=== PATIENT | female | born 1965 | race Caucasian/White ===

== ENCOUNTER 2020-11-17 10:41 | Emergency (ER) | payer OTHER, SELFPAY ==
[2020-11-17 10:48] VITALS: BP 179/85; PULSE 60; RESP 18; TEMP 36.8; O2SAT 98; BMI 34.3
--- NOTE | 2020-11-17 11:02 | CT_ITS ---
EXAMINATION: CT ABDOMEN AND PELVIS WITH CONTRAST CLINICAL INFORMATION: 55-year-old female with left-sided abdominal pain. History of diverticulitis. COMPARISON: Abdominal ultrasound 07/06/[address] abdomen pelvis 04/28/2017 TECHNIQUE: Multidetector volumetric images were obtained from the superior aspect of the liver through the pubic symphysis following administration 85 mL of Omnipaque 350 intravenous contrast. Sagittal and coronal reformatted images were obtained on the technologist's workstation. This CT examination was performed using dose optimization techniques as appropriate, variously including the following: *Automated exposure control *Adjustment of mA and/or kV according to patient size (this includes techniques or standardized protocols for targeted exams where dose is matched to indication/reason for exam; i.e. extremities or head) *Use of iterative reconstruction technique DLP: 979 mGy-cm FINDINGS: Visualized lung bases are well aerated. Similar mild hepatomegaly. Subcentimeter hypodensity in the right hepatic dome is not accurately characterized but stable. The gallbladder is normal in appearance. The pancreas and adrenal glands are unremarkable. The spleen is mildly enlarged. Symmetrically enhancing kidneys. No hydronephrosis bilaterally. There are a few small left-sided renal hypodensities which although not accurately characterized appear stable from 2017. The stomach is relatively decompressed. Normal caliber loops of small and large bowel. Moderate colonic diverticulosis. Subtle pericolonic stranding adjacent to the distal sigmoid colon and in the region of the splenic flexure, nonspecific. Unremarkable anastomotic suture line. Normal appendix. Nonaneurysmal abdominal aorta. Evaluation of pelvis is limited secondary to streak artifact from right hip prosthesis. The bladder is normal in appearance. Unremarkable CT appearance of the uterus. Trace amount of free pelvic fluid is likely physiologic. No inguinal lymphadenopathy. Mild degenerative changes of the spine. Partially visualized right hip prosthesis. CT/CT abdomen pelvis w con IMPRESSION: 1. Moderate colonic diverticulosis. There are subtle areas of pericolonic stranding adjacent to the splenic flexure and sigmoid colon. I suspect this represents sequela of chronic disease, however, a very mild diverticulitis is not excluded. Clinical correlation recommended. 2. Similar mild hepatosplenomegaly.
--- NOTE | 2020-11-17 11:16 | ED.ABDPAIN ---
HPI - Abdominal Pain General Chief Complaint: Abdominal Pain Stated Complaint: abd pain Time Seen by Provider: 11/17/20 10:55 Source: patient Mode of arrival: ambulatory History of Present Illness HPI narrative: 55-year-old female with a past medical history of depression, diverticulosis, left hip replacement, insomnia, parathyroid disease presenting to the ED complaining of left lower quadrant abdominal pain x1 week with associated nausea and diarrhea. Admits symptoms feel similar to prior diverticulitis. Reports pain radiates to left flank and upper abdomen. Denies fever, chills, vomiting, dysuria/hematuria MD elicited complaint: abdominal pain Related Data Previous Rx's Medication Instructions Recorded buspirone 5 mg tablet 5 mg PO BID #60 tab 09/04/20 clotrimazole-betamethasone 1 1 appl TOPICAL BID #45 g 09/24/20 %-0.05 % topical cream ciprofloxacin HCl 500 mg PO Q12H 7 Days #14 tab 11/17/20 metronidazole [Flagyl] 500 mg PO Q8H 7 Days #21 tab 11/17/20 Allergies Allergy/AdvReac Type Severity Reaction Status Date / Time morphine [MORPHINE] Allergy Intermediate HIVES Verified 09/03/20 13:19 sulfamethoxazole Allergy Unknown HIVES Verified 09/03/20 13:19 [From BACTRIM] trimethoprim [From BACTRIM] Allergy Unknown HIVES Verified 09/03/20 13:19 SEASONAL ALLERGIES Allergy Mild RUNNY NOSE Uncoded 07/12/20 15:54 Review of Systems Review of Systems Constitutional: No Weight loss, No Fever, No Chills Cardiovascular: No Chest Pain, No SOB Respiratory: No Cough, No Sputum Gastrointestinal: + Nausea, No Vomiting, No Diarrhea, No Constipation, + Abdominal pain Genitourinary: No irregular bleeding, No Dysuria, No Urinary Frequency, No Hematuria, +Flank Pain, No Urinary Flow Changes Musculoskeletal: No joint pain, No Myalgias, No Joint Swelling Skin: No Skin Lesions, No rash Yes all other systems are reviewed and are negative Physical Exam Vital Signs: Vital Signs: Last Vital Signs Temp 98.2 F 11/17/20 10:48 Pulse 60 11/17/20 10:48 Resp 18 11/17/20 10:48 BP 179/85 H 11/17/20 10:48 Pulse Ox 98 11/17/20 10:48 Body Mass Index 34.3 Const: General: cooperative and healthy appearing Orientation/consciousness: patient oriented x3 Limitations: no limitations HENMT: Head: Yes normal to inspection Ears: hearing grossly normal bilaterally General nose exam: Normal external nose present Face and sinus: Yes normal facial exam Eyes: General: appearance normal, both eyes and all related structures EOM: EOMs intact bilaterally Neck: Neck: Yes normal visual inspection Resp: Effort & Inspection: normal respiratory effort Cardio: Rate: regular rate GI: Inspection: Yes normal to inspection Palpation (GI): Soft to palpation, Tenderness to palpation present (GI) in the LLQ and in the LUQ, no guarding and not rigid : General: Yes CVA tenderness on the left Skin: Rashes: no rashes Wounds: no wounds Neuro: General: patient oriented x3 Gait exam (Neuro): Normal gait present Extrem: General: Yes normal to inspection Course Course Course Narrative: 1353-- no leukocytosis, labs otherwise unremarkable, lactic negative, UA neg CT abdomen pelvis w con IMPRESSION: 1. Moderate colonic diverticulosis. There are subtle areas of pericolonic stranding adjacent to the splenic flexure and sigmoid colon. I suspect this represents sequela of chronic disease, however, a very mild diverticulitis is not excluded. Clinical correlation recommended. 2. Similar mild hepatosplenomegaly. > results discussed with patient including worrisome signs and symptoms and strict return precautions. Patient verbalized understanding and feels safe for discharge home to follow-up with GI MDM - Abdominal Pain MDM Narrative Medical decision making narrative: 55-year-old female with a past medical history of depression, diverticulosis, left hip replacement, insomnia, parathyroid disease presenting to the ED complaining of left lower quadrant abdominal pain x1 week with associated nausea and diarrhea. On exam VS as, NAD/nontoxic appearing, abdomen soft with LUQ/LLQ and left flank TTP. No rebound or guarding. Concern for diverticulitis vs renal stone vs UTI or pancreatitis. Low concern for appendicitis or ovarian pathology. Plan: Labs, UA, CT AP, IVF/symptomatic therapy, reassess Lab Data Result diagrams: 11/17/20 11:36 11/17/20 11:36 Labs: Lab Results 11/17/20 11/17/20 11/17/20 Range/Units 11:36 11:36 11:36 WBC 4.8 (4.8-10.8) X10*3/uL RBC 4.63 (4.20-5.50) X10*6/uL Hgb 14.7 (12.0-16.0) g/dl Hct 43.5 (37-47) % MCV 94.0 (80-98) fL MCH 31.7 (27.0-33.0) pg MCHC 33.8 (31.0-35.0) g/dl RDW 12.6 (11.0-16.0) % Plt Count TNP MPV 13.1 H (9.4-12.3) fL Immature Gran % (Auto) 0.2 (0.0-0.4) % Neut % (Auto) 64.2 (45-73) % Lymph % (Auto) 25.5 (20-40) % [place] % (Auto) 8.4 (2-11) % Eos % (Auto) 1.3 (0-4) % Baso % (Auto) 0.4 (0-2) % Lymph # (Auto) 1.2 (1.2-4.9) X10*3/uL [place] # (Auto) 0.4 (0.1-1.2) X10*3/uL Eos # (Auto) 0.1 (0.0-0.4) X10*3/uL Baso # (Auto) 0.0 (0.0-0.2) X10*3/uL Abs Immat Gran (auto) 0.01 (0.00-0.03) X10*3/uL Absolute Neuts (auto) 3.1 (2.0-8.3) X10*3/uL Absolute Nucleated RBC 0.000 (0.0-0.012) X10*3/uL Nucleated RBC % (auto) 0.0 (0.0-0.2) /100WBC Smear Tech's Comments VERIFIED Hold Blue Top SEE NOTE Sodium 140 (135-145) mmol/L Potassium 4.6 (3.3-5.1) mmol/l Chloride 108 (96-108) mmol/L Carbon Dioxide 23 (22-29) mmol/L Anion Gap 14 (12-20) BUN 12 (9-16) mg/dL Creatinine 0.71 (0.5-1.4) mg/dL Estim Creat Clear Calc 97.7 Estimated GFR > 60 Random Glucose 87 (60-115) mg/dL Lactic Acid (0.5-2.0) mmol/L Calcium 10.3 H (8.4-10.2) mg/dL Magnesium 2.0 (1.6-2.6) mg/dL Total Bilirubin 0.6 (0.0-1.0) mg/dL Direct Bilirubin 0.2 (0.0-0.5) mg/dL AST 22 (5-31) U/L ALT 32 H (0-31) U/L Alkaline Phosphatase 81 (39-117) U/L Total Protein 6.8 (6.5-8.0) g/dL Albumin 4.4 (3.5-5.0) g/dL Lipase 22 (8-78) U/L Urine Color Urine Appearance Urine pH (5.0-8.0) Ur Specific [place] (1.005-1.025) Urine Protein (NEG-TRACE) MG/DL Urine Glucose (UA) (NEG) MG/DL Urine Ketones (NEG) MG/DL Urine Blood (NEG) Urine Nitrite (NEG) Ur Leukocyte Esterase (NEG) 11/17/20 11/17/20 Range/Units 11:36 11:36 WBC (4.8-10.8) X10*3/uL RBC (4.20-5.50) X10*6/uL Hgb (12.0-16.0) g/dl Hct (37-47) % MCV (80-98) fL MCH (27.0-33.0) pg MCHC (31.0-35.0) g/dl RDW (11.0-16.0) % Plt Count MPV (9.4-12.3) fL Immature Gran % (Auto) (0.0-0.4) % Neut % (Auto) (45-73) % Lymph % (Auto) (20-40) % [place] % (Auto) (2-11) % Eos % (Auto) (0-4) % Baso % (Auto) (0-2) % Lymph # (Auto) (1.2-4.9) X10*3/uL [place] # (Auto) (0.1-1.2) X10*3/uL Eos # (Auto) (0.0-0.4) X10*3/uL Baso # (Auto) (0.0-0.2) X10*3/uL Abs Immat Gran (auto) (0.00-0.03) X10*3/uL Absolute Neuts (auto) (2.0-8.3) X10*3/uL Absolute Nucleated RBC (0.0-0.012) X10*3/uL Nucleated RBC % (auto) (0.0-0.2) /100WBC Smear Tech's Comments Hold Blue Top Sodium (135-145) mmol/L Potassium (3.3-5.1) mmol/l Chloride (96-108) mmol/L Carbon Dioxide (22-29) mmol/L Anion Gap (12-20) BUN (9-16) mg/dL Creatinine (0.5-1.4) mg/dL Estim Creat Clear Calc Estimated GFR Random Glucose (60-115) mg/dL Lactic Acid 1.2 (0.5-2.0) mmol/L Calcium (8.4-10.2) mg/dL Magnesium (1.6-2.6) mg/dL Total Bilirubin (0.0-1.0) mg/dL Direct Bilirubin (0.0-0.5) mg/dL AST (5-31) U/L ALT (0-31) U/L Alkaline Phosphatase (39-117) U/L Total Protein (6.5-8.0) g/dL Albumin (3.5-5.0) g/dL Lipase (8-78) U/L Urine Color YELLOW Urine Appearance CLEAR Urine pH 6.0 (5.0-8.0) Ur Specific [place] 1.025 (1.005-1.025) Urine Protein NEG (NEG-TRACE) MG/DL Urine Glucose (UA) NEG (NEG) MG/DL Urine Ketones NEG (NEG) MG/DL Urine Blood NEG (NEG) Urine Nitrite NEG (NEG) Ur Leukocyte Esterase NEG (NEG) Discharge Plan Discharge Clinical Impression: Diverticulitis Patient Disposition: Home, Self-Care Instructions: Diverticulitis (ED), Diverticulitis Diet (ED) Additional Instructions: Your CT scan showed small area of diverticulitis, Cipro and Flagyl antibiotics, take as prescribed. Do not drink any alcohol while taking Flagyl make you very sick. Practice clear liquid diet for two to three days, after which your diet can be increased to soft or regular Make sure your staying hydrated at home Follow-up with GI If your symptoms persist or worsen, pain becomes unbearable, you have fever, persistent nausea/vomiting return to the ED Prescriptions: New metronidazole [Flagyl] 500 mg tablet 500 mg PO Q8H 7 Days Qty: 21 RF: 0 ciprofloxacin HCl 500 mg tablet 500 mg PO Q12H 7 Days Qty: 14 RF: 0 No Action buspirone 5 mg tablet 5 mg PO BID Qty: 60 RF: 6 clotrimazole-betamethasone 1-0.05 % cream 1 appl topical BID Qty: 45 RF: 3 Referrals: Shade Elder [Physician] - 1 week [facility] Past Medical History Attestation statement: The following information was validated with the patient. 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
[2020-11-17] MEDS: 0.9 % Sodium Chloride 1,000 ML 999 ML IVCONT (11:32)
[2020-11-17] MEDS: ondansetron HCL 4 MG/2 ML VIAL IVPUSH (11:32)
[2020-11-17] MEDS: Ketorolac Tromethamine 15 MG/ML VIAL IVPUSH ×2 (11:32→12:07)
[2020-11-17 11:47] LABS: Imm Gran Abs Auto 0.01 X10*3/uL (0.00-0.03); Imm Gran Pct Auto 0.2 % (0.0-0.4); MANUAL DIFF FLAG SCAN; Mean Platelet Volume 13.1 fL (9.4-12.3); Red Cell Distribution Width 12.6 % (11.0-16.0); SCAN SMEAR FLAG 1
[2020-11-17 11:49] LABS: Basophils Percent Auto 0.4 % (0-2); Eosinophils Absolute Auto 0.1 X10*3/uL (0.0-0.4); Eosinophils Percent Auto 1.3 % (0-4); Glucose Urine UA NEG (NEG); Hematocrit 43.5 % (37-47); Hemoglobin 14.7 g/dl (12.0-16.0); Leukocyte Esterase Urine NEG (NEG); Lymphocytes Absolute Auto 1.2 X10*3/uL (1.2-4.9); Lymphocytes Percent Auto 25.5 % (20-40); Mean Corpuscular HGB Conc 33.8 g/dl (31.0-35.0); Mean Corpuscular Hemoglobin 31.7 pg (27.0-33.0); Monocytes Absolute Auto 0.4 X10*3/uL (0.1-1.2); Monocytes Percent Auto 8.4 % (2-11); Neutrophils Absolute Auto 3.1 X10*3/uL (2.0-8.3); Neutrophils Percent Auto 64.2 % (45-73); Nitrite Urine NEG (NEG); PLT CLUMP 1; Red Blood Count 4.63 X10*6/uL (4.20-5.50); Specific Gravity - Urine 1.025 (1.005-1.025); Urine Blood NEG (NEG); Urine Ketones NEG (NEG); Urine Protein NEG (NEG-TRACE)
[2020-11-17 11:50] LABS: Appearance Urine CLEAR; Color Urine YELLOW
[2020-11-17 12:08] LABS: PLT ABN DIST 1
[2020-11-17 12:10] LABS: White Blood Count 4.8 X10*3/uL (4.8-10.8)
[2020-11-17 12:11] LABS: SLIDE REVIEW VERIFIED
[2020-11-17 12:24] LABS: Alanine Aminotransferase 32 U/L (0-31); Albumin Level 4.4 g/dL (3.5-5.0); Alkaline Phosphatase 81 U/L (39-117); Anion Gap 14 (12-20); Aspartate Amino Transferase 22 U/L (5-31); Bilirubin Direct 0.2 mg/dL (0.0-0.5); Bilirubin Total 0.6 mg/dL (0.0-1.0); Blood Urea Nitrogen 12 mg/dL (9-16); Calcium 10.3 mg/dL (8.4-10.2); Carbon Dioxide 23 mmol/L (22-29); Chloride 108 mmol/L (96-108); Creatinine Clr Calc Pharmacy 97.7; Estimated Glomerular Filt Rate > 60; Glucose Random 87 mg/dL (60-115); Lipase 22 U/L (8-78); Potassium 4.6 mmol/l (3.3-5.1); Sodium 140 mmol/L (135-145); Total Protein 6.8 g/dL (6.5-8.0)
[2020-11-17 12:29] LABS: Lactic Acid 1.2 mmol/L (0.5-2.0)
[2020-11-17] MEDS: iohexoL 350 MG/ML 100 ML INFUS..BTL IV (13:09)
[2020-11-17] MEDS: HYDROmorphone HCl 0.5 MG/0.5 ML SYRINGE IVPUSH (13:56)
--- NOTE | 2020-11-17 14:03 | PC.NURSE ---
pt updated on plan of care, medicated per emar. tolerating po w/o issue. given ice chips per request.
[2020-11-17 14:50] VITALS: BP 138/72; PULSE 70; RESP 18
[2020-11-17] MEDS: metroNIDAZOLE 500 MG TABLET PO (15:08)
== END 2020-11-17 15:38 | disposition home or self-care (01) ==
PROVIDERS: Physician Assistant; Emergency Provider Internal Medicine; PCP Internal Medicine
DX: K57.32 Diverticulitis of large intestine without perforation or abscess without bleeding (principal); R10.32 Left lower quadrant pain; M25.552 Pain in left hip; R11.0 Nausea; R19.7 Diarrhea, unspecified; F33.1 Major depressive disorder, recurrent, moderate; Z79.899 Other long term (current) drug therapy
CPT/HCPCS: 36415; 74177; 80048; 80076; 81003; 83605; 83690; 83735; 85025; 96361; 96374; 96375; 96376; 99283; J1170; J1885; J2405; Q9967

== ENCOUNTER 2021-02-01 11:21 | Outpatient (REF) | payer OTHER, SELFPAY ==
[2021-02-01 13:15] LABS: COVID-19 Test Negative (Negative)
== END 2021-02-01 11:22 | disposition home or self-care (01) ==
LOC: HO.LAB 11:21
PROVIDERS: Visit Provider Internal Medicine
DX: Z20.822 Contact with and (suspected) exposure to COVID-19 (principal)
CPT/HCPCS: 36415; 87635; C9803

== ENCOUNTER → 2021-04-18 10:44 | Outpatient (BNVA) | payer OTHER, SELFPAY | PROVIDERS: PCP Internal Medicine; Visit Provider Internal Medicine | DX: M72.2 Plantar fascial fibromatosis (principal) | CPT/HCPCS: 99202 ==

== ENCOUNTER 2021-04-20 07:50 | Outpatient (REF) | payer OTHER, SELFPAY ==
--- NOTE | ~2021-04-20 | MM_ITS ---
EXAMINATION: MM SCREENING DIGITAL BREAST TOMOSYNTHESIS, BILATERAL CLINICAL INFORMATION: Screening. Asymptomatic. The lifetime risk of breast cancer based on the Tyrer-Cuzick Model is 12.7%. COMPARISON: Mammography: March 05, 2016, December 06, 2014, and November 23, 2013. TECHNIQUE: Digital breast tomosynthesis is performed in both the craniocaudal and mediolateral oblique views along with computer-aided detection (CAD). Synthesized 2D images are generated from the tomosynthesis. FINDINGS: The breasts are heterogeneously dense, which may obscure small masses (ACR BI-RADS breast composition Category c). There are no new significant masses, abnormal calcifications, or other abnormalities. Skin calcifications are present. MM/MM tomosynthesis screening BI IMPRESSION: There are no significant changes from prior study. ASSESSMENT: BI-RADS 1: Negative RECOMMENDATION: Routine annual mammography screening. This patient's information was entered into a reminder system with a target due date for their next mammogram.
== END 2021-04-20 07:51 | disposition home or self-care (01) ==
LOC: HO.MAMMO 07:50
PROVIDERS: Visit Provider Internal Medicine
DX: Z12.31 Encounter for screening mammogram for malignant neoplasm of breast (principal)
CPT/HCPCS: 77063; 77067

== ENCOUNTER 2021-04-25 10:12 | Outpatient (REF) | payer OTHER, SELFPAY ==
[2021-04-28 03:37] LABS: HPV mRNA E6/E7 Not Detected (Not Detected)
== END 2021-04-25 10:13 | disposition home or self-care (01) ==
LOC: HO.LAB 10:12
PROVIDERS: Visit Provider Internal Medicine
DX: Z01.419 Encounter for gynecological examination (general) (routine) without abnormal findings (principal); Z11.51 Encounter for screening for human papillomavirus (HPV); Z13.220 Encounter for screening for lipoid disorders; E21.5 Disorder of parathyroid gland, unspecified; E66.3 Overweight; D49.2 Neoplasm of unspecified behavior of bone, soft tissue, and skin
CPT/HCPCS: 87624; 88142

== ENCOUNTER → 2021-04-25 14:27 | Outpatient (BNVA) | payer OTHER, SELFPAY | PROVIDERS: PCP Internal Medicine; Visit Provider Internal Medicine | DX: M72.2 Plantar fascial fibromatosis (principal) | CPT/HCPCS: 99213 ==

== ENCOUNTER 2021-04-30 08:15 | Day surgery (SDC) | payer OTHER, SELFPAY ==
--- NOTE | 2021-04-26 08:17 | P.CONAN_ITS ---
Documented by User: Haydee Marisela 04/26/21 08:18 HPI - Anesthesia Eval Consult details Narrative: 56yo F for Colonoscopy h/o sigmoid colectomy PMFSH Active Problems Active Problems: All Active Problems (Updated 04/25/21 @ 09:50 by Consuelo Solomon MD) Overweight (Acute) Skin growth (Acute) Annual physical exam (Acute) Foot pain, right (Acute) Labial cyst (Acute) Past Medical History Medical History Annual physical exam Anxiety Depression Diverticulosis Foot pain, right Insomnia Overweight Parathyroid disease Skin growth Family History Family History Father Bladder cancer Mother Colon cancer Surgical History Surgical History H/O colonoscopy History of bowel resection History of carpal tunnel surgery History of left hip replacement Social History Social History Housing: House Patient Tobacco Use Status: Current everyday Tobacco user Tobacco use type: Cigarette Cigarettes Per Day: 10 Years Smoked: 35 Smoked in Last 30 Days: Yes e-Cigarette/Vaping Use: Never Used Second Hand Smoke Exposure: No Use of substances other than those prescribed or required for medical reasons: No Are you DNR?: No Advance Directives: No Advance Directives Information Provided: Yes service: No Current occupational status: employed 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 Current occupational exposures/hazards: No Meds Allergies Allergy/AdvReac Type Severity Reaction Status Date / Time morphine [MORPHINE] Allergy Intermediate HIVES Verified 04/30/21 08:49 sulfamethoxazole Allergy Unknown HIVES Verified 04/30/21 08:49 [From BACTRIM] trimethoprim [From BACTRIM] Allergy Unknown HIVES Verified 04/30/21 08:49 SEASONAL ALLERGIES Allergy Mild RUNNY NOSE Uncoded 04/06/21 15:00 Home Medications Medication Instructions Recorded Confirmed Last Taken Type albuterol sulfate 1 - 2 puff PO Q4-6H PRN 03/19/21 04/25/21 Unknown History trazodone 1 tab PO BEDTIME 03/19/21 04/25/21 Unknown History Exam Exam Date and Time: April 26, 2021 0817 Assessment and Plan Assessment Anesthesia Assessment: Chart Reviewed Documented by User: Susan Coronado 04/30/21 09:49 PMFSH Past Medical History Medical History Annual physical exam Anxiety Depression Diverticulosis Foot pain, right Insomnia Overweight Parathyroid disease Skin growth Family History Family History Father Bladder cancer Mother Colon cancer Surgical History Surgical History H/O colonoscopy History of bowel resection History of carpal tunnel surgery History of left hip replacement Social History Social History Housing: House Patient Tobacco Use Status: Current everyday Tobacco user Tobacco use type: Cigarette Cigarettes Per Day: 10 Years Smoked: 35 Smoked in Last 30 Days: Yes e-Cigarette/Vaping Use: Never Used Second Hand Smoke Exposure: No Use of substances other than those prescribed or required for medical reasons: No Are you DNR?: No Advance Directives: No Advance Directives Information Provided: Yes service: No Current occupational status: employed 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 Current occupational exposures/hazards: No Meds Allergies Allergy/AdvReac Type Severity Reaction Status Date / Time morphine [MORPHINE] Allergy Intermediate HIVES Verified 04/30/21 08:49 sulfamethoxazole Allergy Unknown HIVES Verified 04/30/21 08:49 [From BACTRIM] trimethoprim [From BACTRIM] Allergy Unknown HIVES Verified 04/30/21 08:49 SEASONAL ALLERGIES Allergy Mild RUNNY NOSE Uncoded 04/06/21 15:00 Home Medications Medication Instructions Recorded Confirmed Last Taken Type albuterol sulfate 1 - 2 puff PO Q4-6H PRN 03/19/21 04/25/21 Unknown History trazodone 1 tab PO BEDTIME 03/19/21 04/25/21 Unknown History Exam Airway Mallampati Class: II TM Dist: >3cm Neck ROM: Full Loose/Missing/Broken Teeth: No Heart: RRR Lungs: CTA Assessment and Plan Assessment Anesthesia Assessment: Anesthesia Plan Discussed and Chart Reviewed Final Anesthetic Review NPO: Yes ASA Class: II Final Preanesthetic Review: Meds/Allgs Chart Reviewed, Consent Obtained/Reviewed and Anes Risks/Benef Reviewed Patient Risk: Low Procedure Risk: Low Anesthetic Plan Anesthetic Plan: MAC: Disposition: Standard PACU
[2021-04-30 08:52] VITALS: BP 138/50; PULSE 68; RESP 16; TEMP 36.4; O2SAT 97; BMI 33.3
[2021-04-30] MEDS: Lactated Ringers 1,000 ML 100 ML IVCONT (09:05)
--- NOTE | 2021-04-30 09:33 | MHC.SHP ---
Pre-Procedural Eval Section A Date of Service: 04/30/21 Section B Chief Complaint: diverticulitis Details of Present Illness: see H&P no changes Relevant Family History (Specify if Yes): No Relevant Social History: None Present Medications: see Short Stay Collaborative assessment Medical History: No relevant PMH History of Previous Operations: Relevant previous surgery/procedure and date(s) (see h & p no changes) Allergies: Allergies Allergy/AdvReac Type Severity Reaction Status Date / Time morphine [MORPHINE] Allergy Intermediate HIVES Verified 04/30/21 08:49 sulfamethoxazole Allergy Unknown HIVES Verified 04/30/21 08:49 [From BACTRIM] trimethoprim [From BACTRIM] Allergy Unknown HIVES Verified 04/30/21 08:49 SEASONAL ALLERGIES Allergy Mild RUNNY NOSE Uncoded 04/06/21 15:00 Review of Systems Sugical H&P ROS: Negative: Constitution, Cardiovascular, Respiratory, Neurological, Psychiatric, Hem-Onc, Allergic/Immunologic, Gastrointestinal, Genitourinary, Musculoskeletal, Integumentary, Endocrine and Eyes/Ears/Nose/Throat Exam Surgical H&P Exam: Normal: HEENT, Normal: Heart, Normal: Lungs, Normal: Extremities, Normal: Abdomen, Normal: Skin and Normal: Neurological Plan Diagnosis/Plan: Unchanged I have reviewed the history and physical and performed a pertinent physical examination on my patient. No changes have occurred unless specified.
[2021-04-30 09:58] VITALS: BP 129/60; PULSE 73; RESP 18; TEMP 36.3; O2SAT 99
--- NOTE | 2021-04-30 09:58 | P.BOP_ITS ---
Brief Operative Note Date of Service: 04/30/21 Pre-op diagnosis: diverticulitis Post-op diagnosis: same Procedure: colonoscopy Surgeon: Shade Elder Anesthesia: MAC Was an Advanced Clinical Specialist used for this Procedure?: No Estimated blood loss (mL): 2 Pathology: other (sigmoid biopsies) Condition: stable Disposition: PACU
[2021-04-30 10:13] VITALS: BP 121/50; PULSE 68; RESP 17; TEMP 36.3; O2SAT 99
--- NOTE | 2021-04-30 12:35 | OP_ITS ---
SURGEON: Shade Elder MD INDICATIONS: Diverticulitis and abnormal CT scan of the colon. PREOPERATIVE DIAGNOSIS: POSTOPERATIVE DIAGNOSIS: PROCEDURE PERFORMED: Colonoscopy to the terminal ileum with biopsy. ESTIMATED BLOOD LOSS: COMPLICATIONS: ANESTHESIA: Monitored anesthesia care. ASSISTANTS: SPECIMENS: DESCRIPTION OF PROCEDURE: History and physical performed. The risks and benefits of the procedure were explained to the patient. Informed consent was obtained. The patient was placed in the left lateral decubitus position. A digital rectal exam was performed and was found to be normal. The Olympus pediatric video colonoscope was introduced into the rectum and advanced to the cecum without difficulty. The cecum was identified by transillumination, palpation, and identification of ileocecal valve. Examination was performed. The scope was removed. She tolerated the procedure well and was taken to recovery area in stable condition. FINDINGS: The terminal ileum was normal. The visualized colonic mucosa was normal. There was stool coating the mucosa limiting the examination for detection of small polyps. No polyps were identified. Random sigmoid biopsies were obtained to rule out colitis. There was scattered diverticulosis throughout the colon. At about 20 cm, there appeared to be a patent anastomosis from her prior surgery. Retroflexed examination showed internal hemorrhoids. IMPRESSION: Diverticulosis. RECOMMENDATION: Follow up the biopsy results. Screening colonoscopy is recommended every 10 years for average risk individuals. MD ALMA Brannon/RAY / [id number] MTDD
== END 2021-04-30 11:11 | disposition home or self-care (01) ==
PROVIDERS: PCP Internal Medicine; Visit Provider Internal Medicine Gastroenterology
PROC: 0DJD8ZZ Inspection of Lower Intestinal Tract, Via Natural or Artificial Opening Endoscopic (ICD-10-PCS; CPT 45378; principal; 2021-04-30 09:30)
DX: R93.5 Abnormal findings on diagnostic imaging of other abdominal regions, including retroperitoneum (principal); K57.30 Diverticulosis of large intestine without perforation or abscess without bleeding; K64.8 Other hemorrhoids; Z80.0 Family history of malignant neoplasm of digestive organs; Z90.49 Acquired absence of other specified parts of digestive tract; E66.3 Overweight; J30.2 Other seasonal allergic rhinitis; F32.9 Major depressive disorder, single episode, unspecified; Z96.641 Presence of right artificial hip joint; Z88.2 Allergy status to sulfonamides; Z88.8 Allergy status to other drugs, medicaments and biological substances; Z79.899 Other long term (current) drug therapy; F17.210 Nicotine dependence, cigarettes, uncomplicated
CPT/HCPCS: 45380; 88305

== ENCOUNTER → 2021-05-03 14:30 | Outpatient (BNVA) | payer OTHER, SELFPAY | PROVIDERS: PCP Internal Medicine; Visit Provider Internal Medicine | DX: M72.2 Plantar fascial fibromatosis (principal) | CPT/HCPCS: 99213 ==

== ENCOUNTER → 2021-05-10 10:54 | Outpatient (BNVA) | payer OTHER, SELFPAY | PROVIDERS: PCP Internal Medicine; Visit Provider Internal Medicine | DX: M72.2 Plantar fascial fibromatosis (principal) | CPT/HCPCS: 99213 ==

== ENCOUNTER 2022-02-17 07:58 | Outpatient (REF) | payer OTHER, SELFPAY ==
[2022-02-17 11:59] LABS: Hematocrit 44.8 % (37.0-47.0); Hemoglobin 14.7 g/dl (12.0-16.0); Mean Corpuscular HGB Conc 32.8 g/dl (31.0-35.0); Mean Corpuscular Hemoglobin 31.4 pg (27.0-33.0); Mean Corpuscular Volume 95.7 fL (80.0-98.0); Mean Platelet Volume 11.6 fL (9.4-12.3); Red Blood Count 4.68 X10*6/uL (4.20-5.50); Red Cell Distribution Width 12.4 % (11.0-16.0); White Blood Count 5.3 X10*3/uL (4.8-10.8)
[2022-02-17 12:10] LABS: Alanine Aminotransferase 47 U/L (0-31); Albumin Level 4.6 g/dL (3.5-5.0); Alkaline Phosphatase 78 U/L (39-117); Anion Gap 11 (12-20); Aspartate Amino Transferase 36 U/L (5-31); Bilirubin Total 0.8 mg/dL (0.0-1.0); Blood Urea Nitrogen 13 mg/dL (9-16); Carbon Dioxide 26 mmol/L (22-29); Chloride 106 mmol/L (96-108); Cholesterol 175 mg/dL; Estimated Glomerular Filt Rate > 60; Glucose Fasting 101 mg/dL (60-99); HDL Cholesterol 34 mg/dL; LDL Cholesterol Calculated 113 mg/dl; Potassium 4.7 mmol/L (3.3-5.1); Sodium 138 mmol/L (135-145); Total Protein 7.3 g/dL (6.5-8.0); Triglycerides 140 mg/dL
[2022-02-17 12:30] LABS: Appearance Urine CLEAR; Color Urine YELLOW; Glucose Urine UA NEG (NEG); Leukocyte Esterase Urine NEG (NEG); Nitrite Urine NEG (NEG); Urine Blood NEG (NEG); Urine Ketones NEG (NEG); Urine Protein NEG (NEG-TRACE)
[2022-02-17 12:31] LABS: TSH reflex Free T4 0.96 uIU/mL (0.32-4.0)
[2022-02-17 14:16] LABS: Bacteria Urine 2+ /LPF; Squamous Epithelial Cell Urine 2+ /LPF
[2022-02-18 11:27] LABS: Calcium (PTHI) 11.2 mg/dL (8.6-10.4); PTHI 81 pg/mL (16-77)
[2022-02-21 13:17] LABS: Calcium, Ionized 5.8 mg/dL (4.8-5.6)
== END 2022-02-17 07:59 | disposition home or self-care (01) ==
LOC: HO.HMGCLDS 07:58
PROVIDERS: PCP Internal Medicine; Visit Provider Internal Medicine
DX: Z00.00 Encounter for general adult medical examination without abnormal findings (principal); E21.5 Disorder of parathyroid gland, unspecified
CPT/HCPCS: 36415; 80053; 80061; 81001; 82330; 83970; 84443; 85027

== ENCOUNTER 2022-06-27 19:00 | Outpatient (REF) | payer OTHER, SELFPAY ==
[2022-06-28 12:01] LABS: Leukocytes Stool Qualitative NEGATIVE (NEGATIVE)
[2022-06-28 12:04] LABS: CDiff Gene PCR NEGATIVE (Negative)
[2022-06-28 13:55] LABS: Adenovirus F 40/41 Not Detected (Not Detect.); Astrovirus Not Detected (Not Detect.); Campylobacter Not Detected (Not Detect.); Cryptosporidium Not Detected (Not Detect.); Cyclospora cayetanensis Not Detected (Not Detect.); E. coli EAEC Not Detected (Not Detect.); E. coli EPEC Not Detected (Not Detect.); E. coli ETEC Not Detected (Not Detect.); E. coli STEC Not Detected (Not Detect.); Entamoeba histolytica Not Detected (Not Detect.); Giardia lamblia Not Detected (Not Detect.); Norovirus GI/GII Not Detected (Not Detect.); Plesiomonas shigelloides Not Detected (Not Detect.); Rotavirus A Not Detected (Not Detect.); Salmonella Not Detected (Not Detect.); Sapovirus Not Detected (Not Detect.); Shigella sp./EIEC Not Detected (Not Detect.); Vibrio Not Detected (Not Detect.); Vibrio Cholerae Not Detected (Not Detect.); Yersinia enterocolitica Not Detected (Not Detect.)
== END 2022-06-27 19:01 | disposition home or self-care (01) ==
LOC: HO.LNP 19:00
PROVIDERS: Visit Provider Internal Medicine Gastroenterology
DX: R19.7 Diarrhea, unspecified (principal)
CPT/HCPCS: 87177; 87209; 87493; 87507; 89055

== ENCOUNTER 2022-06-28 10:49 | Outpatient (REF) | payer OTHER, SELFPAY | END 2022-06-28 10:50 | disposition home or self-care (01) | LOC: HO.LNP 10:49 | PROVIDERS: Visit Provider Internal Medicine Gastroenterology | DX: Z13.89 Encounter for screening for other disorder (principal) | CPT/HCPCS: 87177; 87209; 87493; 87507; 89055 ==

== ENCOUNTER 2022-07-28 20:36 | Emergency (ER) | payer OTHER, SELFPAY ==
[2022-07-28 20:39] VITALS: BP 138/59; PULSE 62; RESP 18; TEMP 35.9; O2SAT 98; BMI 33.3
--- OUTSIDE RECORDS SUMMARY | 2022-07-28 20:48 | XMS_ITS | Continuity of Care Document ---
:1965 Author Organization [facility] Address [address] [place] [address]- Care Team Providers Name Role Phone Consuelo Solomon MD Primary Care Physician [place] [facility] [place] 12/07/19 - 12/17/19 [facility] [address] [facility] [place] [address]- [facility] Attending Physician: Keisha Golden Admitting Physician: Keisha Golden Referring Physician: AdmtrKeisha Allergies, Adverse Reactions, Alerts Substance Reaction Severity Status morphine Active sulfa drugs Active Zoloft Active Effexor Active CeleXA Active Medications acetaminophen 325 mg oral tablet 650 mg, By Mouth, Every 6 hours, Refills 0, Maintenance, 06/07/19 7:08:31 EDT Start Date: 06/07/19 Status: Orderedaspirin 162.5 mg oral capsule, extended release = 325 mg, By Mouth, 2 times a day, 0 Refills, Maintenance, 06/07/19 7:08:46 EDT, ER Capsule Start Date: 06/07/19 Status: OrderedbuPROPion 150 mg/12 hours (SR) oral tablet, extended release See Instructions, 1 tablet By Mouth 2 times a day, 0 Refills, Maintenance, 06/06/19 8:18:16 EDT, ER Tablet Start Date: 06/06/19 Status: Ordereddocusate sodium 100 mg oral capsule 100 mg, 1, capsule, By Mouth, 2 times a day, Refills 0, Maintenance, 06/07/19 7:08:51 EDT Start Date: 06/07/19 Status: Orderedfluconazole 150 mg oral tablet 1 tablet = 150 mg, By Mouth, Once, # 1 tablet, 0 Refills, Soft Stop, 11/23/19 11:30:00 EST, Tablet, [facility] #[id number], 163, cm, 11/23/19 11:00:00 EST, Height, 85, kg, 06/06/19 8:02:00 EDT, Dry Weight Start Date: 11/23/19 Status: OrderedFLUoxetine 60 mg oral tablet 1 tablet = 60 mg, By Mouth, Daily in AM, # 30 tablet, 0 Refills, Maintenance, 06/06/19 8:19:19 EDT, Tablet Start Date: 06/06/19 Status: OrderedMaalox Plus Liquid 30 mL, By Mouth, Every 4 hours, PRN Other, Heartburn, 0 Refills, Maintenance, 06/07/19 7:08:44 EDT, Suspension Start Date: 06/07/19 Status: OrderedMiraLax Powder 1 pack/packet = 17 Gm, By Mouth, Daily, 0 Refills, Maintenance, 06/07/19 7:09:10 EDT, Powder Start Date: 06/07/19 Status: OrderedMOM Liquid 30 mL, By Mouth, Daily, PRN Constipation, 0 Refills, Maintenance, 06/07/19 7:08:53 EDT, Suspension Start Date: 06/07/19 Status: OrderedoxyCODONE 10 mg oral tablet = 10 mg, By Mouth, Every 4 hours, PRN Pain , Moderate, 0 Refills, Maintenance, 06/07/19 7:09:01 EDT,Tablet, Partial fill upon patient request Start Date: 06/07/19 Status: OrderedoxyCODONE 5 mg oral tablet 5 mg, By Mouth, Every 4 hours, PRN, Refills 0, Tot. Refills 0, Maintenance, Pain , Mild, 06/07/19 7:08:54 EDT, Partial fill upon patient request Start Date: 06/07/19 Status: Orderedpantoprazole 40 mg oral delayed release tablet = 40 mg, By Mouth, Daily, 0 Refills, Maintenance, 06/07/19 7:09:08 EDT, EC Tablet Start Date: 06/07/19 Status: Orderedsenna 187 mg oral tablet 1 tablet = 8.6 mg, By Mouth, Daily at bedtime, 0 Refills, Maintenance, 06/07/19 7:09:12 EDT, Tablet Start Date: 8/13/19 Status: Ordered Social History Social History Type Response Smoking Status Never (less than 100 in life time) entered on: 11/17/19 Sex
--- OUTSIDE RECORDS SUMMARY | 2022-07-28 20:48 | XMS_ITS | Continuity of Care Document ---
:1965 Author Organization [facility] Address [address] [place] [address]- Care Team Providers Name Role Phone Consuelo Solomon MD Primary Care Physician Encounter [facility] NBR [id number] Date(s): 11/23/19 - 01/06/20 [facility] [address] [facility] [place] [address] Attending Physician: Catherine RESENDEZ, Mecca Wu Admitting Physician: Catherine RESENDEZ, Mecca Wu Referring Physician: Consuelo Solomon MD Allergies, Adverse Reactions, Alerts Substance Reaction Severity [...] Refills, Soft Stop, 11/23/19 11:30:00 EST, Tablet, [facility]pharmacy #[id number], 163, cm, 11/23/19 11:00:00 EST, Height, [...] Maintenance, 06/07/19 7:09:12 EDT, Tablet Start Date: 06/07/19 Status: Ordered Social History Social History Type Response Smoking Status Never (less than 100 in life time) entered on: 11/17/19 Sex
--- OUTSIDE RECORDS SUMMARY | 2022-07-28 20:48 | XMS_ITS ---
:1965 Author Organization [facility] Address [address] [place] [address] Care Team Providers Name Role Phone Shade Elder Jr Unavailable Unavailable PROBLEMS Type Condition ICD9-CM Code [id number] Onset Condition SNOMED Code Code Dates Status Problem Diverticulitis K57.92 Active 004 Problem Diverticulitis of K57.92 Active intestine, part unspecified, without perforation or abscess without bleeding Problem Fatty liver K76.0 Active 01721809 7 Problem Diverticulitis of K57.32 Active 11 0878662 large intestine without perforation or abscess without bleeding Problem Abnormal CT scan, R93.3 Active 12 7901134 colon ALLERGIES Substance Reaction Event Type Date Status Morphine Sulfate Unknown Drug Allergy Jan, Active Sulfa Unknown Drug Allergy Jan, Active ENCOUNTERS Encounter Location Date Diagnosis [address] Jun, Diarrhea , unspecified type [facility] [address] [place] R19.7 [address] [place] [address] Mar, [facility] [address] [place] [address] [place] [address] Oct, [facility] [address] [place] [address] Apr, [facility] [address] [place] [address] [place] [address] Apr, [facility] [address] [place] [address] [facility] Outpatient [address] [place] [address] Apr, Abnormal CT sca n, colon [place] [id number] R93.3 and Diverticulitis of intestine, part unspecified, wit hout perforation or a bscess without bleeding K57.92 [facility] [address] Jan, Divertic ulitis K57.92 and [facility] [address] [place] Abnormal C T scan, colon [address] R93.3 [facility] [address] Jan, [facility] [address] [place] [address] [facility] [address] Dec, [facility] [address] [place] [address] [facility] [address] Dec, [facility] [address] [place] [address] [facility] [address] Oct, Abdomina l pain, unspecified [facility] [address] [place] abdominal location R10.9 [address] [facility] [address] Oct, [facility] [address] [place] [address] [facility] Outpatient [address] Jul, [place] [id number] [facility] [address] Jun, Divertic ulitis of large [facility] [address] [place] intestine without [address] perforation or a bscess without bleeding K57.32 and Fatty liver K76. 0 [facility] Outpatient [address] Jun, [place] [id number] [facility] [address] Jun, [facility] [address] [place] [address] [facility] [address] Jun, Rectal b leeding 569.3 and [facility] [address] [place] Diarrhea 7 87.91 [address] [facility] [address] Mar, [facility] [address] [place] [address] [facility]patient [address] Aug, [place]ias [id number] [facility] ER [address] Apr, [place] [id number] [facility] Outpatient [address] Jul, [place] [id number] [facility] ER [address] Jan, [place] [id number] IMMUNIZATIONS Vaccine Route Administration Date Status Influenza Unknown Jul 26, 2020 Administered SOCIAL HISTORY Qualifiers Date Current Smoker REASON FOR REFERRAL FUNCTIONAL STATUS PLAN OF CARE Activity Details Follow Up prn Reason: Pending Test Ova and Parasite Pending Test STOOL WBC Pending Test OVA & PARASITES (O&P) Pending Test CDiff Gene PCR Pending Test LIVER PROFILE Pending Test LIPASE Pending Test CBC w/o DIFF Pending Test STOOL WBC Pending Test OVA & PARASITES (O&P) Pending Test CULTURE, STOOL Pending Test C DIFFICILE RFLX PCR Future/Pending Procedure COLONOSCOPY [id number] Future/Pending Procedure COLONOSCOPY [id number] Future/Pending Procedure COLONOSCOPY [id number] VITAL SIGNS Weight 204 lbs 2021-02-21 Weight 214 lbs 2017-07-15 Weight 189 lbs 2013-07-01 Height 65 in 2021-02-21 Height 65 in 2017-07-15 Height 65 in 2013-07-01 BMI 33.94 kg/m2 2021-02-21 BMI 35.61 kg/m2 2017-07-15 BMI 31.45 kg/m2 2013-07-01 Heart Rate 76 /min 2017-07-15 Heart Rate 76 /min 2013-07-01 Temperature 97.3 degrees Fahrenheit 2021-02-21 Blood pressure systolic 000 mm Hg 2021-02-21 Blood pressure diastolic 00 mm Hg 2021-02-21 MEDICATIONS Medication Instructions Dosage Frequency Start End Duration Statu s Date Date Ondansetron HCl Orally up to 3 1 tablet Mar, Active 4 MG times daily as 2021 needed for nausea Multivitamin Orally Once a 1 tablet 24h 30 day(s) Ac tive Adult - day FLUoxetine HCl Orally Once a 2 tablet in 24h Active 20 MG day the morning MiraLax (colon orally begin at mixed with Jan, 1 day Active prep) 8.3 ounce 5:00 p.m. the Gatorade or 2020 ((238) grams day before the Crystal procedure Light Dicyclomine HCl Orally 2-4 times 1 tablet Oct, 30 day s Active 20 MG a day 2020 PROCEDURES Procedure Date Ordered Result Body Site PT TOBACCO SCREEN RCVD TLK February 21, 2021 BP NOT ASSESS PATIENT NOT ELIGIBLE February 21, 2021 COLORECTAL CA SCREEN DOC REV February 21, 2021 COLONOSCOPY AND BIOPSY April 30, 2021 RESULTS Name Result Date Reference Range Leukocytes Stool Qualitative 2022-06-27 Leukocytes Stool Qualitative NEGATIVE NEG ATIVE CDiff Gene PCR 2022-06-27 CDiff Gene PCR NEGATIVE Negative GI PANEL 2022-06-27 Campylobacter Not Detected Not Detect. Plesiomonas shigelloides Not Detected Not Det ect. Salmonella Not Detected Not Detect. Vibrio Not Detected Not Detect. Vibrio Cholerae Not Detected Not Detect. Yersinia enterocolitica Not Detected Not Dete ct. E. coli EAEC Not Detected Not Detect. E. coli EPEC Not Detected Not Detect. E. coli ETEC Not Detected Not Detect. E. coli STEC Not Detected Not Detect. E. coli O157 Not applicable Not Detect. Shigella sp./EIEC Not Detected Not Detect. Cryptosporidium Not Detected Not Detect. Cyclospora cayetanensis Not Detected Not Dete ct. Entamoeba histolytica Not Detected Not Detect . Giardia lamblia Not Detected Not Detect. Adenovirus F 40/41 Not Detected Not Detect. Astrovirus Not Detected Not Detect. Norovirus GI/GII Not Detected Not Detect. Rotavirus A Not Detected Not Detect. Sapovirus Not Detected Not Detect. Pathology 2021-04-30 GI BIOPSY 2013-07-22 G.I. BIOPSY CBC with MANUAL DIFFERENTIAL 2012-01-16 RBC 3.66 4.20-5.50 HEMOGLOBIN 11.5 12.0-16.0 HEMATOCRIT 34.1 37-47 MCV 93.2 80-98 MCH 31.5 27.0-33.0 MCHC 33.8 31.0-35.0 RDW 11.8 11.0-16.0 SEGS 72 45-73 LYMPHOCYTES 18 20-40 MONOCYTES 8 2-11 EOSINOPHILS 2 0-4 PLATELET ESTIMATE Test not performed NORMAL PLATELET MORPHOLOGY PLT CLUMPS NOTED NORMAL RBC MORPHOLOGY 1+ ANISO NORMAL WBC 5.5 4.8-10.8 ABSOLUTE NEUTROPHIL COUNT 4.0 2.2-7. 9 PLATELET COUNT Test not performed 160-400 US ABD 2012-01-16 REASON FOR VISIT stomach cramps ,nausea, diarrhea, refill dicyclomine , pathology/ waiting on pt call back, Patient having sharp pains, diverticulitis and abnormall findings of the colon on CT scan, diverticulitis and abnormall findings of the colon on CT scan, patient presents today for LLQ apin, Covid Questions, left lower quadrant pain, ov appt, COVID Screen, ABD PAIN - Stools, pain in mid lower left /yellow stool, DIVERTICULITIS, Patient presents today for diverticulitis, RECTAL BLEEDING, sign off on colyte prep, chronic diarrhea, abd pain,pre-colon, Appointment Insurance Providers [facility] Health Member Patient Patient Patient Patient Patient Subscriber Subscriber Subscriber Group Insurance Plan Plan Plan Plan ID Relationship Address Phone Name Date of ID Name Date of No Type Insurance Insurance Insurance Coverage to Subscriber Address Phone Name Dates [facility] [phone] [facility] self LOLA [id number] PROFESSION [id number] [place] CLAIMS [address] [facility] [address] [facility] [phone] [employer] self LOLA [id number] [place] [id number] Health OSKAR Plan [facility] Plan [id number] MEDICAID [phone] MEDICAID self LOLA 1 [id number] OF [place] [id number] OF [address] [facility] [address]
--- OUTSIDE RECORDS SUMMARY | 2022-07-28 20:48 | XMS_ITS | Continuity of Care Document ---
:1965 Author Organization [facility] Address [address] [place] [address] Drive [address] [place] [address]- Care Team Providers Name Role Phone Consuelo Solomon MD Primary Care Physician [place] [facility] [place]22 - 07/05/[address] [place] [address] Allergies, Adverse Reactions, Alerts Substance Reaction Severity [...] Refills, Soft Stop, 11/23/19 11:30:00 EST, Tablet, [id number], 163, cm, 11/23/19 11:00:00 EST, Height, [...] in life time) entered on: 11/17/19 Sex Care Team PersonnelName: Consuelo Solomon MD Address: [address] [facility] [place] [address]
[2022-07-28 21:24] LABS: MANUAL DIFF FLAG NO
[2022-07-28 21:26] LABS: Appearance Urine Clear; COVID-19 Test Negative (Negative); Color Urine Yellow; Glucose Urine UA Negative (Negative); Leukocyte Esterase Urine Negative (Negative); Nitrite Urine Negative (Negative); PH 5.5 (5.0-9.0); Urine Blood Negative (Negative); Urine Ketones Trace mg/dL (Negative); Urine Protein Negative (Neg-Trace)
[2022-07-28 21:26] LABS: Basophils Percent Auto 0.4 % (0-2); Eosinophils Absolute Auto 0.1 X10*3/uL (0.0-0.4); Eosinophils Percent Auto 1.1 % (0-4); Hematocrit 45.6 % (37.0-47.0); Hemoglobin 15.6 g/dl (12.0-16.0); Imm Gran Abs Auto 0.02 X10*3/uL (0.00-0.03); Imm Gran Pct Auto 0.2 % (0.0-0.4); Lymphocytes Absolute Auto 1.7 X10*3/uL (1.2-4.9); Lymphocytes Percent Auto 16.6 % (20-40); Mean Corpuscular HGB Conc 34.2 g/dl (31.0-35.0); Mean Corpuscular Hemoglobin 31.8 pg (27.0-33.0); Mean Corpuscular Volume 92.9 fL (80.0-98.0); Mean Platelet Volume 11.8 fL (9.4-12.3); Monocytes Absolute Auto 0.9 X10*3/uL (0.1-1.2); Monocytes Percent Auto 8.9 % (2-11); Neutrophils Absolute Auto 7.3 x10*3/uL (2.0-8.3); Neutrophils Percent Auto 72.8 % (45-73); Platelet Count 155 X10*3/uL (160-400); Red Blood Count 4.91 X10*6/uL (4.20-5.50); Red Cell Distribution Width 12.2 % (11.0-16.0)
--- NOTE | 2022-07-28 21:32 | ED_ITS ---
HPI - Psych General Chief Complaint: Psychiatric Symptoms Stated Complaint: crisis Time Seen by Provider: 07/28/22 21:31 Source: patient Mode of arrival: ambulatory Limitations: no limitations History of Present Illness HPI Narrative: 57-year-old female came in for evaluation of depression. This is a 57-year-old female who has been feeling hopeless and helpless for the past 2 weeks, patient had a prior history of depression and the mental hospitalization in the past, patient feeling suicidal patient takes trazodone for sleeping was thinking to overdose on trazodone, patient lost her partner about 2 years ago and now she is still feeling grieved, patient also has some problems at work which patient think is contributing to her depressive symptoms. No hallucination, only smokes marijuana declines using any other drugs. Related Data Home Medications Medication Instructions Recorded Confirmed albuterol sulfate 90 mcg/actuation 1 - 2 puff PO Q4-6H PRN dyspnea 03/19/21 07/28/22 aerosol inhaler fluoxetine 20 mg capsule 3 cap PO QAM 07/28/22 07/28/22 trazodone 100 mg tablet 1 tab PO BEDTIME 07/28/22 07/28/22 Allergies Allergy/AdvReac Type Severity Reaction Status Date / Time morphine [MORPHINE] Allergy Intermediate HIVES Verified 07/28/22 20:39 sulfamethoxazole Allergy Unknown HIVES Verified 07/28/22 20:39 [From BACTRIM] trimethoprim [From BACTRIM] Allergy Unknown HIVES Verified 07/28/22 20:39 SEASONAL ALLERGIES Allergy Mild RUNNY NOSE Uncoded 05/08/22 07:51 Review of Systems Review of Systems: All other systems are reviewed and are negative Constitutional: Reports as per HPI and Reports no additional constitutional complaints Eyes: Reports as per HPI and Reports no additional eye complaints Reports system reviewed and no additional complaints, except as documented Cardiovascular: Reports as per HPI and Reports no additional cardiovascular complaints Respiratory: Reports as per HPI and Reports no additional respiratory complaints Gastrointestinal: Reports as per HPI and Reports no additional gastrointestinal complaints Genitourinary: Reports no additional female genitourinary complaints Musculoskeletal: Reports no additional musculoskeletal complaints Skin/Breast: Reports system reviewed and no additional complaints, except as docu Psychiatric: Reports no additional psychiatric complaints Endocrine: Reports no additional endocrine complaints Hematologic/Lymphatic: Reports no additional hematologic/lymphatic complaints Allergic/Immunologic: Reports no additional allergic/immunologic complaints Reports system reviewed and no additional complaints, except as documented and Reports Abnormal speech present [facility] Past Medical History Medical History Annual physical exam Anxiety Depression Diverticulosis Foot pain, right Insomnia Overweight Parathyroid disease Skin growth Surgical History H/O colonoscopy History of bowel resection History of carpal tunnel surgery History of left hip replacement Family History Family History Father Bladder cancer Mother Colon cancer Social History Social History Housing: House Patient Tobacco Use Status: Current everyday Tobacco user Tobacco use type: Cigarette Cigarettes Per Day: 10 Years Smoked: 35 e-Cigarette/Vaping Use: Never Used Second Hand Smoke Exposure: No Advance Directives: No Advance Directives Information Provided: Yes service: No Current occupational status: employed 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 Blood pressure normal. Heart rate normal. Respiration rate normal. Temperature normal. Oxygen saturation normal. Appearance: Alert. Oriented X3. No acute distress. Head: Normal external exam. Normocephalic. Atraumatic. No Avendaño signs noted. No raccoon eyes noted Eyes: PERRLA. EOMI. Conjunctiva and sclera normal. Eyelids normal. ENT: TM's Normal. Pharynx normal. Uvula midline. Moist mucous membranes. No trismus noted. No drooling noted. No muffled voice noted. Neck: Normal inspection. Neck supple. FROM. No adenopathy. Thyroid Normal. No meningeal signs. No neck mass noted. CVS: Normal heart rate and rhythm. Heart sound normal. No murmurs noted. Pulses normal throughout. Respiratory: No respiratory distress. Painless inspiration. Breath sounds normal. No wheezes/rales/rhonchi noted. Chest nontender. No accessory muscle usage noted or decreased air movement noted. Abdomen: Soft and nontender. Bowel sounds normal in all 4 quadrants. No distention noted. No organomegaly noted. No visible injury noted. Back: No CVA tenderness. Full range of motion noted. Skin: Skin warm and dry. Normal skin color. Normal skin turgor. No rashes/lesions/lacerations noted. Extremities: No lower extremity edema. Extremities exhibit normal range of motion. Extremities nontender. Neuro: Oriented X 3. Cranial nerve exam: II-XII are grossly intact No motor deficit. No sensory deficit. Reflexes normal. Patient Orientation: Person, Place, Time and Situation, okay hygiene and grooming. Fair eye contact, attentive, no tics or tremors. Level of Consciousness: Awake, Appropriate and Alert Patient Behavior: Appropriate, Guarded, Cooperative and Anxious Mood Description: Constricted, Blunted and Apprehensive Affect Description: Constricted, Blunted and Apprehensive Patient Cognition Impaired: No Ability to Follow Directions: Excellent Speech Pattern: Clear, Appropriate and Spontaneous Speech, nonpressured, spontaneous with regular rate and rhythm, normal volume and prosody. No dysarthria. Memory Description: Intact, Immediate Intact and Short Term Intact Hallucinations: None Delusions: Not Present Thought Process: Intact Thought Content: positive for Intact, positive for Logical, presence of Suicidal Ideation and denies Homicidal Ideation. Depressive Symptoms: Not present. Judgement and Insight: Limited but adequate. Course Reevaluation(s) Reevaluation #1: Physician observation started at 21:45 . Patient placed in physician observation because the patient needed more time for N evaluation and the need for placement patient's vital sign were stable, patient is alert and oriented , neuro exam unchanged, unremarkable rest of physical exam. Time: 21:44 Reevaluation #2: Patient has been evaluated by N overnight, no risk for attempting suicide, patient will be discharged home with daughter to contact her psychologist today, N will arrange for partial hospitalization if patient needed but at this point patient felt to be safe to be discharged with her daughter since there is no serious suicidal ideation. Time: 06:23 [facility] - Psych Lab Data Attestation: I reviewed the patient's lab results. Result diagrams: 10/03/22 21:19 07/28/22 21:19 Labs: Lab Results 07/28/22 07/28/22 07/28/22 Range/Units 21:04 21:04 21:05 WBC (4.8-10.8) X10*3/uL RBC (4.20-5.50) X10*6/uL Hgb (12.0-16.0) g/dl Hct (37.0-47.0) % MCV (80.0-98.0) fL MCH (27.0-33.0) pg MCHC (31.0-35.0) g/dl RDW (11.0-16.0) % Plt Count (160-400) X10*3/uL MPV (9.4-12.3) fL Immature Gran % (Auto) (0.0-0.4) % Neut % (Auto) (45-73) % Lymph % (Auto) (20-40) % Robertson % (Auto) (2-11) % Eos % (Auto) (0-4) % Baso % (Auto) (0-2) % Lymph # (Auto) (1.2-4.9) X10*3/uL Robertson # (Auto) (0.1-1.2) X10*3/uL Eos # (Auto) (0.0-0.4) X10*3/uL Baso # (Auto) (0.0-0.2) X10*3/uL Abs Immat Gran (auto) (0.00-0.03) X10*3/uL Absolute Neuts (auto) (2.0-8.3) x10*3/uL Absolute Nucleated RBC (0.0-0.012) X10*3/uL Nucleated RBC % (auto) (0.0-0.2) /100WBC Sodium (135-145) mmol/L Potassium (3.3-5.1) mmol/L Chloride (96-108) mmol/L Carbon Dioxide (22-29) mmol/L Anion Gap (12-20) BUN (9-16) mg/dL Creatinine (0.5-1.4) mg/dL Estim Creat Clear Calc Estimated GFR Random Glucose (60-115) mg/dL Calcium (8.4-10.2) mg/dL Total Bilirubin (0.0-1.0) mg/dL AST (5-31) U/L ALT (0-31) U/L Alkaline Phosphatase (39-117) U/L Total Protein (6.5-8.0) g/dL Albumin (3.5-5.0) g/dL Urine Color Yellow Urine Appearance Clear Urine pH 5.5 (5.0-9.0) Ur Specific [place] 1.020 (1.005-1.025) Urine Protein Negative (Neg-Trace) mg/dL Urine Glucose (UA) Negative (Negative) mg/dL Urine Ketones Trace (Negative) mg/dL Urine Blood Negative (Negative) Urine Nitrite Negative (Negative) Ur Leukocyte Esterase Negative (Negative) Urine Opiates Screen Not Detected (Not Detect) Urine Fentanyl Screen Not Detected (Not Detect) Ur Barbiturates Screen Not Detected (Not Detect) Ur Phencyclidine Scrn Not Detected (Not Detect) Ur Amphetamines Screen Not Detected (Not Detect) U Benzodiazepines Scrn Not Detected (Not Detect) Urine Cocaine Screen Not Detected (Not Detect) U Marijuana (THC) Screen POSITIVE H (Not Detect) COVID-19 (YESSENIA) Negative (Negative) COVID-19 Clin Com See Note 07/28/22 07/28/22 Range/Units 21:19 21:19 WBC 10.0 (4.8-10.8) X10*3/uL RBC 4.91 (4.20-5.50) X10*6/uL Hgb 15.6 (12.0-16.0) g/dl Hct 45.6 (37.0-47.0) % MCV 92.9 (80.0-98.0) fL MCH 31.8 (27.0-33.0) pg MCHC 34.2 (31.0-35.0) g/dl RDW 12.2 (11.0-16.0) % Plt Count 155 L (160-400) X10*3/uL MPV 11.8 (9.4-12.3) fL Immature Gran % (Auto) 0.2 (0.0-0.4) % Neut % (Auto) 72.8 (45-73) % Lymph % (Auto) 16.6 L (20-40) % Robertson % (Auto) 8.9 (2-11) % Eos % (Auto) 1.1 (0-4) % Baso % (Auto) 0.4 (0-2) % Lymph # (Auto) 1.7 (1.2-4.9) X10*3/uL Robertson # (Auto) 0.9 (0.1-1.2) X10*3/uL Eos # (Auto) 0.1 (0.0-0.4) X10*3/uL Baso # (Auto) 0.0 (0.0-0.2) X10*3/uL Abs Immat Gran (auto) 0.02 (0.00-0.03) X10*3/uL Absolute Neuts (auto) 7.3 (2.0-8.3) x10*3/uL Absolute Nucleated RBC 0.000 (0.0-0.012) X10*3/uL Nucleated RBC % (auto) 0.0 (0.0-0.2) /100WBC Sodium 141 (135-145) mmol/L Potassium 4.8 (3.3-5.1) mmol/L Chloride 104 (96-108) mmol/L Carbon Dioxide 24 (22-29) mmol/L Anion Gap 18 (12-20) BUN 13 (9-16) mg/dL Creatinine 0.80 (0.5-1.4) mg/dL Estim Creat Clear Calc 86.3 Estimated GFR > 60 Random Glucose 101 (60-115) mg/dL Calcium 11.5 H (8.4-10.2) mg/dL Total Bilirubin 0.7 (0.0-1.0) mg/dL AST 41 H (5-31) U/L ALT 52 H (0-31) U/L Alkaline Phosphatase 95 D (39-117) U/L Total Protein 7.8 (6.5-8.0) g/dL Albumin 4.8 (3.5-5.0) g/dL Urine Color Urine Appearance Urine pH (5.0-9.0) Ur Specific [place] (1.005-1.025) Urine Protein (Neg-Trace) mg/dL Urine Glucose (UA) (Negative) mg/dL Urine Ketones (Negative) mg/dL Urine Blood (Negative) Urine Nitrite (Negative) Ur Leukocyte Esterase (Negative) Urine Opiates Screen (Not Detect) Urine Fentanyl Screen (Not Detect) Ur Barbiturates Screen (Not Detect) Ur Phencyclidine Scrn (Not Detect) Ur Amphetamines Screen (Not Detect) U Benzodiazepines Scrn (Not Detect) Urine Cocaine Screen (Not Detect) U Marijuana (THC) Screen (Not Detect) COVID-19 (YESSENIA) (Negative) COVID-19 Clin Com Discharge Plan Discharge Clinical Impression: Depression Patient Disposition: Home, Self-Care Instructions: Depression (ED) Prescriptions: No Action albuterol sulfate 90 mcg/actuation HFA aerosol inhaler 1 - 2 puff PO Q4-6H PRN (Reason: dyspnea) trazodone 100 mg tablet 1 tab PO BEDTIME fluoxetine 20 mg capsule 3 cap PO QAM Referrals: Consuelo Solomon MD [Primary Care Provider] -
[2022-07-28 21:37] LABS: Amphetamine Screen Urine Not Detected (Not Detect); Barbiturates, Urine Not Detected (Not Detect); Benzodiazepines Screen Urine Not Detected (Not Detect); Cannabinoid Screen Urine POSITIVE (Not Detect); Cocaine Screen Urine Not Detected (Not Detect); Fentanyl, urine Not Detected (Not Detect); Opiate Screen Urine Not Detected (Not Detect); Phencyclidine Screen Urine Not Detected (Not Detect)
[2022-07-28 21:47] LABS: Alanine Aminotransferase 52 U/L (0-31); Albumin Level 4.8 g/dL (3.5-5.0); Alkaline Phosphatase 95 U/L (39-117); Anion Gap 18 (12-20); Aspartate Amino Transferase 41 U/L (5-31); Bilirubin Total 0.7 mg/dL (0.0-1.0); Blood Urea Nitrogen 13 mg/dL (9-16); Calcium 11.5 mg/dL (8.4-10.2); Carbon Dioxide 24 mmol/L (22-29); Chloride 104 mmol/L (96-108); Creatinine Clr Calc Pharmacy 86.3; Estimated Glomerular Filt Rate > 60; Glucose Random 101 mg/dL (60-115); Potassium 4.8 mmol/L (3.3-5.1); Sodium 141 mmol/L (135-145); Total Protein 7.8 g/dL (6.5-8.0)
[2022-07-28] MEDS: Acetaminophen 325 MG TABLET 650 MG PO (22:55)
[2022-07-28] MEDS: LORazepam 0.5 MG TABLET PO (22:56)
--- NOTE | 2022-07-28 23:17 | PC.NURSE ---
Patient C/O headache and anxiety, Tylenol and ativan po given as order. She is pleasant able to follow commands., wanting to stay in her room. Will continue to monitor.
[2022-07-29 02:15] VITALS: BP 118/74; PULSE 59; RESP 16; TEMP 36.4; O2SAT 97
--- NOTE | 2022-07-29 05:55 | PC.NURSE ---
Patient sleeping, comfortably . No distress noted. Daughter called she was made aware of her discharge today. Will continue to monitor.
--- NOTE | 2022-07-30 12:33 | MHC.CARE ---
CARE Team receives call from pt requesting information regarding the PHP program. Pt was seen by N and was discharged with a disposition of Partial Hospitalization. Referral was submitted by CARE Team on pt's behalf.
--- NOTE | 2022-08-01 13:16 | MHC.CARE ---
Spoke with pt this morning who called stating no one from [facility] had been in contact with her. A referral had been placed earlier this week, pt was notified it may take a few days to receive a call for an intake. Pt was transferred to [facility] and [facility] staff were advised via [place] text. Contacted pt in the afternoon to check on her status. Pt stated that [facility] had contacted her and scheduled her first day with the program. Pt sounded more optimistic than she did this morning.
== END 2022-07-29 06:38 | disposition home or self-care (01) ==
PROVIDERS: Emergency Provider Emergency Medicine; PCP Internal Medicine
DX: F32.A Depression, unspecified (principal); R45.851 Suicidal ideations; F41.9 Anxiety disorder, unspecified; F17.210 Nicotine dependence, cigarettes, uncomplicated; Z20.822 Contact with and (suspected) exposure to COVID-19; Z79.899 Other long term (current) drug therapy
CPT/HCPCS: 36415; 80053; 80307; 81003; 85025; 87635; 99283; 99284

== ENCOUNTER 2022-08-06 13:09 | Outpatient (REF) | payer OTHER, SELFPAY ==
[2022-08-06 14:50] LABS: Albumin Level 4.5 g/dL (3.5-5.0); Estimated Glomerular Filt Rate > 60
[2022-08-06 14:56] LABS: Calcium 11.1 mg/dL (8.4-10.2)
== END 2022-08-06 13:10 | disposition home or self-care (01) ==
LOC: HO.HMGCLDS 13:09
PROVIDERS: PCP Internal Medicine; Visit Provider Internal Medicine Endocrinology, Diabetes & Metabolism
DX: E21.5 Disorder of parathyroid gland, unspecified (principal)
CPT/HCPCS: 36415; 82040; 82310; 82565

== ENCOUNTER 2022-08-08 08:20 | Outpatient (REF) | payer OTHER, SELFPAY ==
[2022-08-08 13:14] LABS: Total Volume 24 Hour Urine 1775 mL
[2022-08-10 19:52] LABS: Calcium, 24 Hr Urine 460 mg/24 h; Calcium/Creatinine Ratio 463 mg/g creat (30-275); Creatinine 24Hr Urine 0.99 g/24 h (0.50-2.15)
== END 2022-08-08 08:21 | disposition home or self-care (01) ==
LOC: HO.HMGCLDS 08:20
PROVIDERS: PCP Internal Medicine; Visit Provider Internal Medicine Endocrinology, Diabetes & Metabolism
DX: E21.5 Disorder of parathyroid gland, unspecified (principal)
CPT/HCPCS: 82340; 82570

== ENCOUNTER 2022-08-19 12:11 | Outpatient (REF) | payer OTHER, SELFPAY ==
[2022-08-19 12:45] LABS: COVID-19 Test Negative (Negative)
== END 2022-08-19 12:12 | disposition home or self-care (01) ==
LOC: HO.LAB 12:11
PROVIDERS: Visit Provider Internal Medicine
DX: Z20.822 Contact with and (suspected) exposure to COVID-19 (principal)
CPT/HCPCS: 87635; C9803

== ENCOUNTER 2022-08-20 06:26 | Emergency (ER) | payer OTHER, SELFPAY ==
[2022-08-20 06:45] VITALS: BP 141/76; PULSE 68; RESP 16; TEMP 36.5; O2SAT 97; BMI 34.3
[2022-08-20 08:02] LABS: IDNOW Serial# 16C4AD1C; Influenza A Negative (Negative)
[2022-08-20 08:03] LABS: COVID-19 Test Negative (Negative); Influenza B2 Negative (Negative)
--- NOTE | 2022-08-20 08:11 | ED_ITS ---
HPI - URI/Sore Throat General Chief Complaint: Upper Respiratory Symptoms Stated Complaint: Sob Time Seen by Provider: 08/20/22 08:02 Source: patient Mode of arrival: ambulatory Limitations: no limitations History of Present Illness HPI Narrative: 57-year-old female here with 4 days of cough, wheezing, sneezing, runny nose, headache. Patient started Claritin and using Tessalon Perles with continued symptoms. Patient reports cough is worsened at night time. She denies any history of asthma or COPD. She does smoke cigarettes. No recent travel or sick contact. Patient is vaccinated for COVID. Patient had COVID in May of 2022. No chest pain, leg swelling or leg pain, dizziness or palpitations. Related Data Home Medications Medication Instructions Recorded Confirmed fluoxetine 20 mg capsule 3 cap PO QAM 07/28/22 08/14/22 dicyclomine 20 mg tablet 20 mg PO DIRECTED 08/14/22 08/14/22 Previous Rx's Medication Instructions Recorded lamotrigine 25 mg tablet See Rx Instructions .Route 08/14/22 .COMPLEX 28 days #42 tabs benzonatate 200 mg capsule 200 mg PO BID-TID PRN cough #20 08/19/22 caps codeine 10 mg-guaifenesin 100 mg/5 5 ml PO Q6H PRN cough #90 mL 08/20/22 mL oral liquid (Virtussin AC) prednisone 20 mg tablet 40 mg PO DAILY #8 tabs 08/20/22 Allergies Allergy/AdvReac Type Severity Reaction Status Date / Time morphine [MORPHINE] Allergy Intermediate HIVES Verified 08/01/22 09:42 sulfamethoxazole Allergy Unknown HIVES Verified 08/01/22 09:42 [From BACTRIM] trimethoprim [From BACTRIM] Allergy Unknown HIVES Verified 08/01/22 09:42 SEASONAL ALLERGIES Allergy Mild RUNNY NOSE Uncoded 08/01/22 09:42 Review of Systems Review of Systems: Yes all other systems are reviewed and are negative Constitutional: Constitutional: Reports no additional constitutional complaints, Denies body ache(s), Denies chills, Denies fever(s), Reports headache(s) and Denies weakness Eyes: Eyes: Reports no additional eye complaints and Denies change in vision ENT: Reports system reviewed and no additional complaints, except as doc umented, Denies dizziness, Reports headache(s), Denies nasal congestion, Reports nasal discharge and Denies neck pain Cardiovascular: Cardiovascular: Reports no additional cardiovascular complaints, Denies chest pain, Denies leg edema and Denies dyspnea Respiratory: Respiratory: Reports no additional respiratory complaints, Reports cough, Denies dyspnea and Reports wheezing Gastrointestinal: Gastrointestinal: Reports no additional gastrointestinal complaints, Denies abdominal pain, Denies diarrhea, Denies nausea and Denies vomiting Genitourinary: Genitourinary: Reports no additional female genitourinary complaints and Denies urinary incontinence Musculoskeletal: Musculoskeletal: Reports no additional musculoskeletal comp laints, Denies back pain, Denies arthralgias, Denies joint swelling, Denies neck pain, Denies numbness and Denies tingling Integumentary/Breasts: Skin/Breast: Reports system reviewed and no additional complaints, except as docu and Denies rash Neurologic: Reports system reviewed and no additional complaints, except as documented, Denies Abnormal speech present, Denies dizziness, Reports headache(s), Denies numbness, Denies tingling and Denies weakness Allergic/Immunologic: Allergic/Immunologic: Reports wheezing PMFSH Past Medical History Attestation statement: The following information was validated with the patient. Source: old records reviewed and nursing notes reviewed Medical History Annual physical exam Anxiety Depression Diverticulosis Foot pain, right Insomnia Overweight Parathyroid disease Skin growth Surgical History H/O colonoscopy History of bowel resection History of carpal tunnel surgery History of right hip replacement Family History Family History Father Bladder cancer Mother Colon cancer Social History Social History Household Members: None Housing: House Patient Tobacco Use Status: Former Tobacco user Tobacco use type: Cigarette Cigarettes Per Day: 10 Years Smoked: 35 e-Cigarette/Vaping Use: Never Used Second Hand Smoke Exposure: No Advance Directives: No Advance Directives Information Provided: Yes service: No Current occupational status: employed 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 Current occupational exposures/hazards: No Cognitive needs: No Hearing needs: No Vision needs: Yes Physical Exam Vital Signs: Vital Signs: Last Vital Signs Temp 97.7 F 08/20/22 06:45 Pulse 68 08/20/22 08:29 Resp 18 08/20/22 08:29 BP 141/76 H 08/20/22 06:45 Pulse Ox 97 08/20/22 06:45 O2 Del Method 08/20/22 06:45 BMI result Body Mass Index 34.3 Const: General: cooperative, healthy appearing, comfortable and no acute distress Orientation/consciousness: patient oriented x3 Limitations: no limitations HEENT: Head: Yes normal to inspection Ears: hearing grossly normal bilaterally and TM's normal bilaterally General nose exam: Normal external nose present Face and sinus: Yes normal facial exam Mouth: Normal oral and palatal mucosa present Throat: Yes posterior oropharynx normal, Yes tonsils normal and Yes uvula midline Eyes: General: appearance normal, both eyes and all related structures Pupils: Equal, round and reactive pupils present Neck: Neck: Yes normal visual inspection, Yes full ROM, Yes no lymphadenopathy and Yes no meningeal signs Chest: Chest palpation & inspection: normal inspection of the chest Resp: Other: Mild expiratory wheezing throughout Effort & Inspection: normal respiratory effort Cardio: Rate: regular rate Rhythm: regular rhythm Peripheral pulses: Peripheral pulses 2+ throughout GI: Inspection: Yes normal to inspection Palpation (GI): Soft to palpation and nontender Auscultation: normal bowel sounds Back/Spine/Pelvis: Thoracic/Lumbar Spine: thoracic and lumbar spine normal to inspection Skin: General skin exam: no rashes or lesions noted Neuro: General: patient oriented x3, no meningeal signs, no focal motor deficits and normal sensation to monofilament Cranial nerves: Yes Equal, round and reactive pupils present Cognition (Neuro): normal cognition Speech: No Abnormal speech present Gait exam (Neuro): Normal gait present Motor exam (neuro): 5/5 motor strength present throughout Extrem: General: Yes normal to inspection Course Course Course Narrative: 2129-lung sounds improved after DuoNeb. Patient will be discharged home with prednisone course, cough suppressant. Reviewed worrisome signs and symptoms of when to return to the emergency room. Comfortable plan for discharge home. MDM - URI/Sore Throat MDM Narrative Medical decision making narrative: 57-year-old female who presents with 4 days of cough, wheezing, rhinorrhea, sneezing, headache despite using [id number] allergy medication and cough suppressant. On arrival vitals stable. Patient does have expiratory wheezing throughout. Consider viral URI no fever to suggest pneumonia. Perc 0 Will send testing for flu, COVID and RSV. Will give albuterol MDI, p.o. prednisone Medical Records Attestation: I reviewed the patient's medical records. Lab Data Attestation: I reviewed the patient's lab results. Labs: Lab Results 08/20/22 08/20/22 Range/Units 07:36 07:36 COVID-19 (YESSENIA) Negative (Negative) COVID-19 Clin Com See Note Influenza Type A (JASSI) Negative (Negative) Influenza Type B (JASSI) Negative (Negative) Influenza A & B Note See Note Discharge Plan Discharge Clinical Impression: Upper respiratory infection Patient Disposition: Home, Self-Care Instructions: Upper Respiratory Infection (ED) Additional Instructions: Testing for flu, COVID and RSV are negative Alternate Motrin and Tylenol for pain or fever Increase fluids at home Next dose of prednisone is tomorrow Use the inhaler 2 puffs every 4 hours as needed Prescriptions: New prednisone 20 mg tablet 40 mg PO DAILY Qty: 8 0RF codeine-guaifenesin [Virtussin AC] 10-100 mg/5 mL liquid 5 ml PO Q6H PRN (Reason: cough) Qty: 90 0RF No Action benzonatate 200 mg capsule 200 mg PO BID-TID PRN (Reason: cough) Qty: 20 0RF fluoxetine 20 mg capsule 3 cap PO QAM dicyclomine 20 mg Tablet 20 mg PO DIRECTED Label Comments: Last took a week ago. Rx Instructions: Take 2-4 times a day. lamotrigine 25 mg tablet See Rx Instructions .ROUTE .COMPLEX 28 Days Qty: 42 0RF Rx Instructions: Take 25mg (1 tab) daily X 14 days. THEN, Take 50mg (2 tabs) daily X 14 days. Referrals: Consuelo Solomon MD [Primary Care Provider] - 1 week (as needed) Interventions: ED Discharge Assessment Last Done: 08/20/22 09:09 Discharge Date/Time: 08/20/22 09:10
[2022-08-20 08:29] VITALS: PULSE 68; RESP 18; O2SAT 97
[2022-08-20] MEDS: Albuterol/Iprat 2.5/0.5MG 3 ML AMPUL.NEB INHALE (08:29)
[2022-08-20] MEDS: predniSONE 20 MG TABLET 60 MG PO (08:33)
[2022-08-20] MEDS: Albuterol Sulfate 90 MCG 8 GM INHALER 2 PUFF INHALE (08:37)
== END 2022-08-20 09:10 | disposition home or self-care (01) ==
PROVIDERS: Emergency Provider Emergency Medicine; PCP Internal Medicine
DX: J06.9 Acute upper respiratory infection, unspecified (principal); R06.02 Shortness of breath; R05.9 Cough, unspecified; R51.9 Headache, unspecified; Z20.822 Contact with and (suspected) exposure to COVID-19; Z79.899 Other long term (current) drug therapy
CPT/HCPCS: 87502; 87635; 94640; 99284

== ENCOUNTER 2022-09-03 11:30 | Outpatient (RCR) | payer OTHER, SELFPAY ==
--- NOTE | 2022-08-14 11:31 | PC.ADMIT ---
Patient is a 57 year old female who was referred to [facility] by [facility] ER where patient self presented d/t increased depression with thoughts to overdose on Trazodone. Patient's partner 2 years ago and patient is feeling lonely and having feelings of worthlessness. Patient also reports she feels like a burden to her family. Patient has a history of one Inpatient level of care in 2018. She has a trauma history. Patient taking a leave of absence from work to be at [facility] to work on her mental health. Currently reports having passive SI having thoughts that, I can't soon enough . Patient denied plan or intent to kill herself. Patient gave her daughter her Trazodone medication as a precaution. Patient is alert and oriented x4. Calm and cooperative. Presented with depressed mood and anxious affect. Patient given a copy of her safety plan if needed. Reports having a supportive family. Medications reconciled with patient's pharmacy and patient. Patient taking medications as prescribed however is not taking Trazodone, Patient reports she is sleeping too much.
[2022-08-14 11:33] VITALS: BP 110/80; PULSE 60; TEMP 36.2
[2022-08-14 11:34] VITALS: BMI 35.0
--- NOTE | 2022-08-14 15:36 | PHP/IOPCOSI ---
Case opened in treatment team
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
--- NOTE | 2022-08-20 08:51 | HO.PHPIOP ---
The client called out sick
--- NOTE | 2022-08-21 08:47 | HO.PHPIOP ---
The client called this morning and left a message that she has a respiratory infection and will be out today and tomorrow. I returned her call and left a message .
--- NOTE | 2022-08-28 15:28 | P.PNPSP_ITS ---
Subjective Subjective Date of Service: 08/28/22 Reason For Visit: depression Medical Problems Affecting Mental Status: No Interim History: patient has been out sick with upper respiratory / bronchitis. Feeling better today, less anxious, less depressed. Describes mood as good . has been taking lamotrigine as prescribed, started the 50mg dose today. No SI/HI, no safety concerns. Medication Compliance: Yes Side effects from medications: No Attending Groups: Yes Review of Systems Acute medical concerns: No Medical Review of Systems: changed Review of Systems Review of Systems Yes all other systems are reviewed and are negative Comments: cough, improving Mental Status Exam Mental Status Exam Narrative: NAD Patient Appearance: Well Grooomed and Appropriate Patient Orientation: Person, Place, Time and Situation Level of Consciousness: Appropriate and Alert Patient Behavior: Appropriate, Cooperative and Good Eye Contact Mood Description: Appropriate, Depressed (improving) and Anxious (improving) Affect Description: Appropriate Patient Cognition Impaired: No Ability to Follow Directions: Excellent Speech Pattern: Clear and Appropriate Memory Description: Intact Hallucinations: None Delusions: Not Present Thought Process: Intact Thought Content: positive for Intact Depressive Symptoms: Increased Anxiety, Changes in Appetite, Sleeping More Than Usual (10-12 hours per night), Loss of Int. in Activity and Isolating- Friends/Family Judgement: Fair Diagnostics Vital Signs (24Hr): BMI result Body Mass Index 35.0 Assessment & Plan Assessment & Plan (1) Major depressive disorder, recurrent, moderate: Status: Acute Code(s): F33.1 - Major depressive disorder, recurrent, moderate Assessment and Plan: patient has been out sick with upper respiratory / bronchitis. Feeling better today, less anxious, less depressed. Describes mood today as good . has been taking lamotrigine as prescribed, started the 50mg dose today. Tolerating well, no s/e. Continues with fluoxetine 60mg daily. No SI/HI, no safety concerns. (2) Generalized anxiety disorder: Status: Acute Code(s): F41.1 - Generalized anxiety disorder Plan 1. continue with current [facility] plan of care. 2. Continue with medication regimen as currently prescribed. 3. Follow-up as per protocol. Patient educated on: diagnosis, medication risk/benefits and therapeutic strategies Informed Consent: understands Reason for contiued partial hosp. stay Substantial Risk for: harm to self and inability to function Certification I certify that partial hospital treatment is medically necessary due to the symptoms and problems resulting from the patient's mental illness and the failure to treat the patient at the partial hospital level of care would likely result in the patient requiring inpatient psychiatric care which could not be prevented at a less intensive level of care. I spent minutes with the patient and/or on the patient floor today, greater than?50% of which was spent counseling/coordinating care. Discharge Plan Discharge Attending provider: Gino Canchola Medications: New lamotrigine 25 mg tablet See Rx Instructions .ROUTE .COMPLEX 28 Days Qty: 42 0RF Rx Instructions: Take 25mg (1 tab) daily X 14 days. THEN, Take 50mg (2 tabs) daily X 14 days. No Action benzonatate 200 mg capsule 200 mg PO BID-TID PRN (Reason: cough) Qty: 20 0RF fluoxetine 20 mg capsule 3 cap PO QAM dicyclomine 20 mg Tablet 20 mg PO DIRECTED Label Comments: Last took a week ago. Rx Instructions: Take 2-4 times a day. prednisone 20 mg tablet 40 mg PO DAILY Qty: 8 0RF codeine-guaifenesin [Virtussin AC] 10-100 mg/5 mL liquid 5 ml PO Q6H PRN (Reason: cough) Qty: 90 0RF Stand Alone Forms: Patient Portal Discharge page Patient Education: Lamotrigine (By mouth)
--- NOTE | 2022-09-03 14:54 | P.PNPSP_ITS ---
Subjective Subjective Date of Service: 09/03/22 Reason For Visit: depression Medical Problems Affecting Mental Status: No Interim History: Describes mood as good , rates anxiety as a 3 on scale 1-10, with 10 being the worst. Reports depression symptoms have greatly improved. Is on day 5 of Lamictal 50 mg, tolerating well. Requests note regarding recommendation for day shift at work. Feels stable for discharge from [facility] today. No SI, no safety concerns. Medication Compliance: Yes Side effects from medications: No Attending Groups: Yes Review of Systems Acute medical concerns: No Medical Review of Systems: unchanged Review of Systems Review of Systems Yes all other systems are reviewed and are negative Constitutional: Reports no additional constitutional complaints Mental Status Exam Mental Status Exam Narrative: NAD Patient Appearance: Well Grooomed and Appropriate Patient Orientation: Person, Place, Time and Situation Level of Consciousness: Appropriate and Alert Patient Behavior: Appropriate, Cooperative and Good Eye Contact Mood Description: Appropriate Affect Description: Appropriate Patient Cognition Impaired: No Ability to Follow Directions: Excellent Speech Pattern: Clear and Appropriate Memory Description: Intact Hallucinations: None Delusions: Not Present Thought Process: Intact Thought Content: positive for Intact Judgement: Good Diagnostics Vital Signs (24Hr): BMI result Body Mass Index 35.0 Assessment & Plan Assessment & Plan (1) Major depressive disorder, recurrent, moderate: Status: Acute Code(s): F33.1 - Major depressive disorder, recurrent, moderate Assessment and Plan: Describes mood as good , rates anxiety as a 3 on scale 1-10, with 10 being the worst. Reports depression symptoms have greatly improved. States ?I am in a good place ?. Is on day 5 of Lamictal 50 mg, tolerating well. Reports that she feels the Lamictal is starting to help lift her mood. Would like to continue with this medication. We discussed dosing, with a planned increase to 100 mg daily once completion of 14 days of 50 mg daily. She was in agreement with this. No side effects reported, tolerating the medication well. Prescription sent to pharmacy for 30 day supply of 100 mg. No SI/HI, no safety concerns. Sleep improved. Requests note regarding recommendation for day shift at work. 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 We discussed recommendation that she work day shift. Letter written and provided to patient. (2) Generalized anxiety disorder: Status: Acute Code(s): F41.1 - Generalized anxiety disorder Plan 1. Patient appears stable for discharge from [facility] at this time. 2. Prescription for Lamictal 100 mg daily, to begin after completion of 14 days at 50 mg. Thirty day supply sent to pharmacy. 3. Patient to follow-up with outpatient providers going forward. Patient educated on: diagnosis, medication risk/benefits and therapeutic strategies Informed Consent: understands Reason for contiued partial hosp. stay Substantial Risk for: stable for discharge Certification I certify that partial hospital treatment is medically necessary due to the symptoms and problems resulting from the patient's mental illness and the failure to treat the patient at the partial hospital level of care would likely result in the patient requiring inpatient psychiatric care which could not be prevented at a less intensive level of care. I spent minutes with the patient and/or on the patient floor today, greater than?50% of which was spent counseling/coordinating care. Discharge Plan Discharge Attending provider: Gino Canchola Medications: New lamotrigine 25 mg tablet See Rx Instructions .ROUTE .COMPLEX 28 Days Qty: 42 0RF Rx Instructions: Take 25mg (1 tab) daily X 14 days. THEN, Take 50mg (2 tabs) daily X 14 days. lamotrigine 100 mg tablet 100 mg PO DAILY 30 Days Qty: 30 0RF Rx Instructions: After completion of lamotrigine 50mg daily, start taking lamotrigine 100mg daily. Discontinued benzonatate 200 mg capsule 200 mg PO BID-TID PRN (Reason: cough) Qty: 20 0RF prednisone 20 mg tablet 40 mg PO DAILY Qty: 8 0RF codeine-guaifenesin [Virtussin AC] 10-100 mg/5 mL liquid 5 ml PO Q6H PRN (Reason: cough) Qty: 90 0RF No Action fluoxetine 20 mg capsule 3 cap PO QAM dicyclomine 20 mg Tablet 20 mg PO DIRECTED Label Comments: Last took a week ago. Rx Instructions: Take 2-4 times a day. Stand Alone Forms: Patient Portal Discharge page Patient Education: Lamotrigine (By mouth), Depression (DC), Anxiety (GEN)
== END 2022-09-03 23:59 | disposition home or self-care (01) ==
LOC: HO.PHPA 11:30
PROVIDERS: Visit Provider Psychiatry & Neurology Psychiatry
DX: F33.1 Major depressive disorder, recurrent, moderate (principal); F41.1 Generalized anxiety disorder; Z79.899 Other long term (current) drug therapy
CPT/HCPCS: 90792; 90853

== ENCOUNTER 2022-09-06 16:19 | Emergency (ER) | payer OTHER, SELFPAY ==
--- NOTE | ~2022-09-06 | CT_ITS ---
EXAMINATION: CT abdomen pelvis w IV con CLINICAL INFORMATION: Reason for Exam RUQ pain COMPARISON: No prior CT available for comparison. TECHNIQUE: Multidetector volumetric imaging was performed from the superior aspect of the liver through the pubic symphysis 85 mL of Omnipaque 350 injected Sagittal and coronal reformatted images were obtained on the technologist's workstation. This CT examination was performed using dose optimization techniques as appropriate, variously including the following: *Automated exposure control *Adjustment of mA and/or kV according to patient size (this includes techniques or standardized protocols for targeted exams where dose is matched to indication/reason for exam; i.e. extremities or head) *Use of iterative reconstruction technique DLP: 875 mGy-cm FINDINGS: LOWER THORAX: Included lung bases are clear. There is right diaphragmatic hernia allowing the liver to protrude into the chest HEPATOBILIARY: Tiny hypodensity in the dome of the liver less than 5 mm too small to characterize nonspecific. No suspicious liver mass or lesion found. GALLBLADDER: Gallbladder unremarkable. SPLEEN: Spleen is normal in size. PANCREAS: No focal mass or ductal dilatation. STOMACH AND GASTROINTESTINAL TRACT: Stomach is grossly unremarkable. Mild diverticulosis of the sigmoid colon without CT evidence of acute diverticulitis. No CT evidence of appendicitis. ADRENALS: No adrenal nodules. KIDNEYS/URETERS: Simple cyst protruding from the lower pole left kidney measure 1.3 cm, Bosniak class I. Small cyst protruding from the upper pole left kidney 0.8 cm. There is no solid renal lesion. No stone or hydronephrosis. Perinephric fat are clear. URINARY BLADDER: Partially decompressed. PELVIC VISCERA: Unremarkable PERITONEUM: No free air or fluid. LYMPH NODES: No lymphadenopathy. VASCULAR:Abdominal aorta normal in size, no aneurysm found. BONES, ABDOMINAL WALL AND SOFT TISSUES: There is right hip prosthesis in place. Otherwise unremarkable. CT/CT abdomen pelvis w IV con IMPRESSION: 1. No CT evidence of acute intra-abdominal process to explain patient's pain symptoms. 2. Diverticulosis without evidence of acute diverticulitis. 3. Right diaphragmatic hernia allowing the right lobe of the liver to herniate up into the chest.
[2022-09-06 17:21] VITALS: BP 152/79; PULSE 68; RESP 16; TEMP 36.3; O2SAT 97; BMI 34.1
--- NOTE | 2022-09-06 17:22 | ED.ABDPAIN ---
HPI - Abdominal Pain General Chief Complaint: Abdominal Pain Stated Complaint: r abd pain Time Seen by Provider: 09/06/22 18:41 Related Data Home Medications Medication Instructions Recorded Confirmed fluoxetine 20 mg capsule 3 cap PO QAM 07/28/22 08/14/22 dicyclomine 20 mg tablet 20 mg PO DIRECTED 08/14/22 08/14/22 Previous Rx's Medication Instructions Recorded lamotrigine 25 mg tablet See Rx Instructions .Route 08/14/22 .COMPLEX 28 days #42 tabs lamotrigine 100 mg tablet 100 mg PO DAILY 30 days #30 tabs 09/03/22 Allergies Allergy/AdvReac Type Severity Reaction Status Date / Time morphine [MORPHINE] Allergy Intermediate HIVES Verified 09/06/22 17:24 sulfamethoxazole Allergy Unknown HIVES Verified 09/06/22 17:24 [From BACTRIM] trimethoprim [From BACTRIM] Allergy Unknown HIVES Verified 09/06/22 17:24 SEASONAL ALLERGIES Allergy Mild RUNNY NOSE Uncoded 09/06/22 17:24 PMFSH Past Medical History Medical History Annual physical exam Anxiety Depression Diverticulosis Foot pain, right Insomnia Overweight Parathyroid disease Skin growth Surgical History H/O colonoscopy History of bowel resection History of carpal tunnel surgery History of right hip replacement Family History Family History Father Bladder cancer Mother Colon cancer Social History Social History Household Members: None Housing: House Patient Tobacco Use Status: Former Tobacco user Tobacco use type: Cigarette Cigarettes Per Day: 10 Years Smoked: 35 e-Cigarette/Vaping Use: Never Used Second Hand Smoke Exposure: No Advance Directives: No Advance Directives Information Provided: No service: No Current occupational status: employed 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 Denies fevers, vomiting or diarrhea. Plan: Labs, UA and CT scan of abd/pelvis without IV contrast. Pt stable she will be sent back to waiting room Time: 17:22 Medications Administered Discontinued Medications Generic Name Dose Route Start Last Admin Trade Name Freq PRN Reason Stop Dose Admin Iohexol 100 ml 09/06/22 20:19 09/06/22 20:19 Iohexol 350 Mg/Ml 100 Ml Infus..Btl IV 09/06/22 20:20 85 ml ONCE ONE Administration Ketorolac Tromethamine 30 mg 09/06/22 19:10 09/06/22 19:15 Ketorolac Tromethamine 15 Mg/Ml Vial IVPUSH 09/06/22 19:11 30 mg ONCE ONE Administration Simethicone 160 mg 09/06/22 20:29 09/06/22 20:50 Simethicone 80 Mg Tab.Chew PO 09/06/22 20:30 160 mg ONCE ONE Administration MDM - Abdominal Pain Lab Data Result diagrams: 09/06/22 17:44 09/06/22 17:44 Labs: Lab Results 09/06/22 09/06/22 09/06/22 Range/Units 17:44 17:44 17:44 WBC 5.5 (4.8-10.8) X10*3/uL RBC 4.56 (4.20-5.50) X10*6/uL Hgb 14.3 (12.0-16.0) g/dl Hct 44.0 (37.0-47.0) % MCV 96.5 (80.0-98.0) fL MCH 31.4 (27.0-33.0) pg MCHC 32.5 (31.0-35.0) g/dl RDW 12.5 (11.0-16.0) % Plt Count 169 (160-400) X10*3/uL MPV 13.0 H (9.4-12.3) fL Immature Gran % (Auto) 0.2 (0.0-0.4) % Neut % (Auto) 62.4 (45-73) % Lymph % (Auto) 25.5 (20-40) % Fleming % (Auto) 9.9 (2-11) % Eos % (Auto) 1.1 (0-4) % Baso % (Auto) 0.9 (0-2) % Lymph # (Auto) 1.4 (1.2-4.9) X10*3/uL Fleming # (Auto) 0.5 (0.1-1.2) X10*3/uL Eos # (Auto) 0.1 (0.0-0.4) X10*3/uL Baso # (Auto) 0.1 (0.0-0.2) X10*3/uL Abs Immat Gran (auto) 0.01 (0.00-0.03) X10*3/uL Absolute Neuts (auto) 3.4 (2.0-8.3) x10*3/uL Absolute Nucleated RBC 0.000 (0.0-0.012) X10*3/uL Nucleated RBC % (auto) 0.0 (0.0-0.2) /100WBC PT 11.7 (10.0-13.1) SEC INR 1.0 (0.9-1.1) Sodium 141 (135-145) mmol/L Potassium 5.1 (3.3-5.1) mmol/L Chloride 105 (96-108) mmol/L Carbon Dioxide 26 (22-29) mmol/L Anion Gap 15 (12-20) BUN 12 (9-16) mg/dL Creatinine 0.72 (0.5-1.4) mg/dL Estim Creat Clear Calc 93.8 Estimated GFR > 60 Random Glucose 94 (60-115) mg/dL Calcium 10.8 H (8.4-10.2) mg/dL Magnesium 2.2 (1.6-2.6) mg/dL Total Bilirubin 0.5 (0.0-1.0) mg/dL AST 33 H (5-31) U/L ALT 51 H (0-31) U/L Alkaline Phosphatase 88 (39-117) U/L Lactate Dehydrogenase 157 (122-220) U/L Total Protein 7.6 (6.5-8.0) g/dL Albumin 4.6 (3.5-5.0) g/dL Lipase 32 (8-78) U/L Urine Color Urine Appearance Urine pH (5.0-9.0) Ur Specific [place] (1.005-1.025) Urine Protein (Neg-Trace) mg/dL Urine Glucose (UA) (Negative) mg/dL Urine Ketones (Negative) mg/dL Urine Blood (Negative) Urine Nitrite (Negative) Ur Leukocyte Esterase (Negative) Urine RBC (0-2) /HPF Urine WBC (0-5) /HPF Ur Squamous Epith Cells (0-2) /HPF Urine Bacteria (None Seen) Hyaline Casts (0-2) /LPF 09/06/22 Range/Units 17:44 WBC (4.8-10.8) X10*3/uL RBC (4.20-5.50) X10*6/uL Hgb (12.0-16.0) g/dl Hct (37.0-47.0) % MCV (80.0-98.0) fL MCH (27.0-33.0) pg MCHC (31.0-35.0) g/dl RDW (11.0-16.0) % Plt Count (160-400) X10*3/uL MPV (9.4-12.3) fL Immature Gran % (Auto) (0.0-0.4) % Neut % (Auto) (45-73) % Lymph % (Auto) (20-40) % Fleming % (Auto) (2-11) % Eos % (Auto) (0-4) % Baso % (Auto) (0-2) % Lymph # (Auto) (1.2-4.9) X10*3/uL Fleming # (Auto) (0.1-1.2) X10*3/uL Eos # (Auto) (0.0-0.4) X10*3/uL Baso # (Auto) (0.0-0.2) X10*3/uL Abs Immat Gran (auto) (0.00-0.03) X10*3/uL Absolute Neuts (auto) (2.0-8.3) x10*3/uL Absolute Nucleated RBC (0.0-0.012) X10*3/uL Nucleated RBC % (auto) (0.0-0.2) /100WBC PT (10.0-13.1) SEC INR (0.9-1.1) Sodium (135-145) mmol/L Potassium (3.3-5.1) mmol/L Chloride (96-108) mmol/L Carbon Dioxide (22-29) mmol/L Anion Gap (12-20) BUN (9-16) mg/dL Creatinine (0.5-1.4) mg/dL Estim Creat Clear Calc Estimated GFR Random Glucose (60-115) mg/dL Calcium (8.4-10.2) mg/dL Magnesium (1.6-2.6) mg/dL Total Bilirubin (0.0-1.0) mg/dL AST (5-31) U/L ALT (0-31) U/L Alkaline Phosphatase (39-117) U/L Lactate Dehydrogenase (122-220) U/L Total Protein (6.5-8.0) g/dL Albumin (3.5-5.0) g/dL Lipase (8-78) U/L Urine Color Yellow Urine Appearance Cloudy Urine pH 6.5 (5.0-9.0) Ur Specific [place] 1.020 (1.005-1.025) Urine Protein Negative (Neg-Trace) mg/dL Urine Glucose (UA) Negative (Negative) mg/dL Urine Ketones Negative (Negative) mg/dL Urine Blood Negative (Negative) Urine Nitrite Negative (Negative) Ur Leukocyte Esterase Trace H (Negative) Urine RBC 0-2 (0-2) /HPF Urine WBC 0-5 (0-5) /HPF Ur Squamous Epith Cells 3-5 (0-2) /HPF Urine Bacteria None Seen (None Seen) Hyaline Casts 0-2 (0-2) /LPF Discharge Plan Discharge Clinical Impression: Abdominal pain, RUQ, Diaphragmatic hernia Patient Disposition: Home, Self-Care Instructions: Hiatal Hernia (ED), Abdominal Pain (ED) Additional Instructions: Take your medications as prescribed. If you were prescribed antibiotics today, it is important that you take your medication to their entirety, do not skip any doses, do not finish them early. Follow-up with your primary care provider this week. Return to the emergency department with new or worsening symptoms. Such as fevers, chills, chest pain, shortness of breath, nausea, vomiting, dizziness, headache, vision changes, lethargy In case of emergency call 911 Please follow-up with General surgery at [facility]. Prescriptions: No Action fluoxetine 20 mg capsule 3 cap PO QAM dicyclomine 20 mg Tablet 20 mg PO DIRECTED Label Comments: Last took a week ago. Rx Instructions: Take 2-4 times a day. lamotrigine 25 mg tablet See Rx Instructions .ROUTE .COMPLEX 28 Days Qty: 42 0RF Rx Instructions: Take 25mg (1 tab) daily X 14 days. THEN, Take 50mg (2 tabs) daily X 14 days. lamotrigine 100 mg tablet 100 mg PO DAILY 30 Days Qty: 30 0RF Rx Instructions: After completion of lamotrigine 50mg daily, start taking lamotrigine 100mg daily.
[2022-09-06 17:50] LABS: MANUAL DIFF FLAG NO
[2022-09-06 17:54] LABS: Appearance Urine Cloudy; Color Urine Yellow; Glucose Urine UA Negative (Negative); Leukocyte Esterase Urine Trace (Negative); Nitrite Urine Negative (Negative); PH 6.5 (5.0-9.0); UMIC TRIGGER UACC YES; Urine Blood Negative (Negative); Urine Ketones Negative (Negative); Urine Protein Negative (Neg-Trace)
[2022-09-06 17:56] LABS: Bacteria Urine None Seen (None Seen); Hyaline Casts Urine 0-2 /LPF (0-2); RBC Urine 0-2 /HPF (0-2); WBC Urine 0-5 /HPF (0-5)
[2022-09-06 17:57] LABS: Basophils Absolute Auto 0.1 X10*3/uL (0.0-0.2); Basophils Percent Auto 0.9 % (0-2); Hemoglobin 14.3 g/dl (12.0-16.0); Imm Gran Abs Auto 0.01 X10*3/uL (0.00-0.03); Imm Gran Pct Auto 0.2 % (0.0-0.4); Monocytes Absolute Auto 0.5 X10*3/uL (0.1-1.2); SCAN SMEAR FLAG 1
[2022-09-06 17:58] LABS: Eosinophils Absolute Auto 0.1 X10*3/uL (0.0-0.4); Eosinophils Percent Auto 1.1 % (0-4); Lymphocytes Absolute Auto 1.4 X10*3/uL (1.2-4.9); Lymphocytes Percent Auto 25.5 % (20-40); Mean Corpuscular HGB Conc 32.5 g/dl (31.0-35.0); Mean Corpuscular Hemoglobin 31.4 pg (27.0-33.0); Mean Corpuscular Volume 96.5 fL (80.0-98.0); Monocytes Percent Auto 9.9 % (2-11); Neutrophils Absolute Auto 3.4 x10*3/uL (2.0-8.3); Neutrophils Percent Auto 62.4 % (45-73); PLT CLUMP 1; Prothrombin Time 11.7 SEC (10.0-13.1); Red Blood Count 4.56 X10*6/uL (4.20-5.50); Red Cell Distribution Width 12.5 % (11.0-16.0)
[2022-09-06 18:06] LABS: Alanine Aminotransferase 51 U/L (0-31); Albumin Level 4.6 g/dL (3.5-5.0); Alkaline Phosphatase 88 U/L (39-117); Anion Gap 15 (12-20); Aspartate Amino Transferase 33 U/L (5-31); Bilirubin Total 0.5 mg/dL (0.0-1.0); Blood Urea Nitrogen 12 mg/dL (9-16); Calcium 10.8 mg/dL (8.4-10.2); Carbon Dioxide 26 mmol/L (22-29); Chloride 105 mmol/L (96-108); Creatinine Clr Calc Pharmacy 93.8; Estimated Glomerular Filt Rate > 60; Glucose Random 94 mg/dL (60-115); Lactate Dehydrogenase 157 U/L (122-220); Lipase 32 U/L (8-78); Magnesium 2.2 mg/dL (1.6-2.6); Potassium 5.1 mmol/L (3.3-5.1); Sodium 141 mmol/L (135-145); Total Protein 7.6 g/dL (6.5-8.0)
[2022-09-06 18:17] LABS: PLT ABN DIST 1; Platelet Count 169 X10*3/uL (160-400); White Blood Count 5.5 X10*3/uL (4.8-10.8)
--- NOTE | 2022-09-06 19:01 | ED_ITS ---
HPI - Abdominal Pain General Chief Complaint: Abdominal Pain Stated Complaint: r abd pain Time Seen by Provider: 09/06/22 18:41 Source: patient Mode of arrival: ambulatory Limitations: no limitations History of Present Illness HPI narrative: This is a 57-year-old female past medical history significant for anxiety, parathyroid disease, depression, anxiety, diverticulosis presenting to the emergency department complaints of right upper quadrant pain for the past 5 days progressively worsening. Patient describes a constant discomfort to the right upper quadrant she tells me she feels like there is a ball in there, she tells me that she cannot tell if it is pain or discomfort however something does not feel right. She reports at times it radiates to her back however not always. Patient tells me when she eats she feels full immediately afterwards. Patient tells me this is never happened to her before. Patient denies chest pain, shortness of breath, nausea, vomiting, changes in urination, changes in bowel habits, weakness, fevers, chills, recent sick contacts. Patient still has her appendix and gallbladder. Denies abd truama Related Data Home Medications Medication Instructions Recorded Confirmed fluoxetine 20 mg capsule 3 cap PO QAM 07/28/22 08/14/22 dicyclomine 20 mg tablet 20 mg PO DIRECTED 08/14/22 08/14/22 Previous Rx's Medication Instructions Recorded lamotrigine 25 mg tablet See Rx Instructions .Route 08/14/22 .COMPLEX 28 days #42 tabs lamotrigine 100 mg tablet 100 mg PO DAILY 30 days #30 tabs 09/03/22 oxycodone 5 mg capsule 5 mg PO BID PRN pain #6 caps 09/06/22 Allergies Allergy/AdvReac Type Severity Reaction Status Date / Time morphine [MORPHINE] Allergy Intermediate HIVES Verified 09/06/22 17:24 sulfamethoxazole Allergy Unknown HIVES Verified 09/06/22 17:24 [From BACTRIM] trimethoprim [From BACTRIM] Allergy Unknown HIVES Verified 09/06/22 17:24 SEASONAL ALLERGIES Allergy Mild RUNNY NOSE Uncoded 09/06/22 17:24 Review of Systems Review of Systems Constitutional : No Weight loss, No Fever, No Chills, No Fatigue, No Malaise ENT/Mouth : No sore throat, No Rhinorrhea Eyes: No Eye Pain, No Swelling, No Redness Cardiovascular : No Chest Pain, No SOB, No Dyspnea on Exertion, No Orthopnea, No Edema, No Palpitations Respiratory : No Cough, No Sputum, No Wheezing Gastrointestinal : No Nausea, No Vomiting, No Diarrhea, No Constipation, + abd ominal Pain, No Hematochezia, No Melena Genitourinary : No Dysuria, No Urinary Frequency, No Hematuria, Musculoskeletal : No joint pain, No Myalgias, No Joint Swelling Skin : No Skin Lesions, No rash Neuro : No Weakness, No Numbness, No Dizziness, No Headache Psych : No Anxiety/Panic, No Depression All other systems reviewed and are negative Yes all other systems are reviewed and are negative [facility] Past Medical History Attestation statement: The following information was validated with the patient. Source: old records reviewed and nursing notes reviewed Medical History Annual physical exam Anxiety Depression Diverticulosis Foot pain, right Insomnia Overweight Parathyroid disease Skin growth Surgical History H/O colonoscopy History of bowel resection History of carpal tunnel surgery History of right hip replacement Family History Family History Father Bladder cancer Mother Colon cancer Social History Social History Household Members: None Housing: House Patient Tobacco Use Status: Former Tobacco user Tobacco use type: Cigarette Cigarettes Per Day: 10 Years Smoked: 35 e-Cigarette/Vaping Use: Never Used Second Hand Smoke Exposure: No Advance Directives: No Advance Directives Information Provided: No service: No Current occupational status: employed 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 Oriented X3.? No acute distress.? Head: Normocephalic, atraumatic, no step-offs or deformities Eyes: Pupils equal, round and reactive to light.? Neck: Normal inspection.? Neck supple.? CVS: Normal heart rate and rhythm.? Pulses normal.? Respiratory: No respiratory distress.? Breath sounds normal.? Abdomen: Soft and + RUQ pain and + murphys sign .? Skin: Skin warm and dry.? Normal skin color.? Normal skin turgor.? Extremities: No lower extremity edema.? No calf ttp. 5/5 strength to bilateral upper and lower extremities Neuro: Oriented X 3.? No motor deficit.? No sensory deficit. CN 2-12 intact Course Reevaluation(s) Reevaluation #1: CBC appears to be around patient's baseline. Chemistry appears to be around patient's baseline, no acute electrolyte abnormalities requiring intervention. Lipase within normal limits. Urine clean. CT of the abdomen pelvis with no evidence of acute intra-abdominal process, diverticulosis is noted without acute diverticulitis. There is a right diaphragmatic hernia allowing the right lobe of the liver to herniate up into the chest. Discuss this case with my attending who recommends me reach out to surgery to discuss this case with them. Time: 21:28 Reevaluation #2: Reached out to our surgeon here at [facility] who tells me that they do not do that kind of hernia repair here. It does not appear to be in an emergency however. Will reach out to [facility] surgery for input. To note patient is not having any respiratory or cardiac symptoms. Time: 21:30 Reevaluation #3: Spoke to Gayle GARCIA from thoracics who will follow patient in the office. Patient does not want any pain medicine as she is driving home. Will cancel morphine order. Will discharge patient home with oxycodone. Advised her to return with new or worsening symptoms, educated her on worrisome signs and s ymptoms and when to return. Patient verbalizes understanding. Time: 23:05 Medications Administered Discontinued Medications Generic Name Dose Route Start Last Admin Trade Name Freq PRN Reason Stop Dose Admin Iohexol 100 ml 09/06/22 20:19 09/06/22 20:19 Iohexol 350 Mg/Ml 100 Ml Infus..Btl IV 09/06/22 20:20 85 ml ONCE ONE Administration Ketorolac Tromethamine 30 mg 09/06/22 19:10 09/06/22 19:15 Ketorolac Tromethamine 15 Mg/Ml Vial IVPUSH 09/06/22 19:11 30 mg ONCE ONE Administration Simethicone 160 mg 09/06/22 20:29 09/06/22 20:50 Simethicone 80 Mg Tab.Chew PO 09/06/22 20:30 160 mg ONCE ONE Administration MDM - Abdominal Pain MDM Narrative Medical decision making narrative: 1900 57-year-old female presents with Constant right upper quadrant/discomfort x5 days worsening. Physical exam with right upper quadrant tenderness and positive Whitmore sign. Hemodynamically stable Concerns for possible cholecystitis. Unlikely acute abdomen, appendicitis, div erticulitis, kidney stones. Plan at this time is labs, urine, imaging. Medical Records Attestation: I reviewed the patient's medical records. Lab Data Attestation: I reviewed the patient's lab results. Result diagrams: 09/06/22 17:44 09/06/22 17:44 Labs: Lab Results 09/06/22 09/06/22 09/06/22 Range/Units 17:44 17:44 17:44 WBC 5.5 (4.8-10.8) X10*3/uL RBC 4.56 (4.20-5.50) X10*6/uL Hgb 14.3 (12.0-16.0) g/dl Hct 44.0 (37.0-47.0) % MCV 96.5 (80.0-98.0) fL MCH 31.4 (27.0-33.0) pg MCHC 32.5 (31.0-35.0) g/dl RDW 12.5 (11.0-16.0) % Plt Count 169 (160-400) X10*3/uL MPV 13.0 H (9.4-12.3) fL Immature Gran % (Auto) 0.2 (0.0-0.4) % Neut % (Auto) 62.4 (45-73) % Lymph % (Auto) 25.5 (20-40) % Simpson % (Auto) 9.9 (2-11) % Eos % (Auto) 1.1 (0-4) % Baso % (Auto) 0.9 (0-2) % Lymph # (Auto) 1.4 (1.2-4.9) X10*3/uL Simpson # (Auto) 0.5 (0.1-1.2) X10*3/uL Eos # (Auto) 0.1 (0.0-0.4) X10*3/uL Baso # (Auto) 0.1 (0.0-0.2) X10*3/uL Abs Immat Gran (auto) 0.01 (0.00-0.03) X10*3/uL Absolute Neuts (auto) 3.4 (2.0-8.3) x10*3/uL Absolute Nucleated RBC 0.000 (0.0-0.012) X10*3/uL Nucleated RBC % (auto) 0.0 (0.0-0.2) /100WBC PT 11.7 (10.0-13.1) SEC INR 1.0 (0.9-1.1) Sodium 141 (135-145) mmol/L Potassium 5.1 (3.3-5.1) mmol/L Chloride 105 (96-108) mmol/L Carbon Dioxide 26 (22-29) mmol/L Anion Gap 15 (12-20) BUN 12 (9-16) mg/dL Creatinine 0.72 (0.5-1.4) mg/dL Estim Creat Clear Calc 93.8 Estimated GFR > 60 Random Glucose 94 (60-115) mg/dL Calcium 10.8 H (8.4-10.2) mg/dL Magnesium 2.2 (1.6-2.6) mg/dL Total Bilirubin 0.5 (0.0-1.0) mg/dL AST 33 H (5-31) U/L ALT 51 H (0-31) U/L Alkaline Phosphatase 88 (39-117) U/L Lactate Dehydrogenase 157 (122-220) U/L Total Protein 7.6 (6.5-8.0) g/dL Albumin 4.6 (3.5-5.0) g/dL Lipase 32 (8-78) U/L Urine Color Urine Appearance Urine pH (5.0-9.0) Ur Specific [place] (1.005-1.025) Urine Protein (Neg-Trace) mg/dL Urine Glucose (UA) (Negative) mg/dL Urine Ketones (Negative) mg/dL Urine Blood (Negative) Urine Nitrite (Negative) Ur Leukocyte Esterase (Negative) Urine RBC (0-2) /HPF Urine WBC (0-5) /HPF Ur Squamous Epith Cells (0-2) /HPF Urine Bacteria (None Seen) Hyaline Casts (0-2) /LPF 09/06/22 Range/Units 17:44 WBC (4.8-10.8) X10*3/uL RBC (4.20-5.50) X10*6/uL Hgb (12.0-16.0) g/dl Hct (37.0-47.0) % MCV (80.0-98.0) fL MCH (27.0-33.0) pg MCHC (31.0-35.0) g/dl RDW (11.0-16.0) % Plt Count (160-400) X10*3/uL MPV (9.4-12.3) fL Immature Gran % (Auto) (0.0-0.4) % Neut % (Auto) (45-73) % Lymph % (Auto) (20-40) % Simpson % (Auto) (2-11) % Eos % (Auto) (0-4) % Baso % (Auto) (0-2) % Lymph # (Auto) (1.2-4.9) X10*3/uL Simpson # (Auto) (0.1-1.2) X10*3/uL Eos # (Auto) (0.0-0.4) X10*3/uL Baso # (Auto) (0.0-0.2) X10*3/uL Abs Immat Gran (auto) (0.00-0.03) X10*3/uL Absolute Neuts (auto) (2.0-8.3) x10*3/uL Absolute Nucleated RBC (0.0-0.012) X10*3/uL Nucleated RBC % (auto) (0.0-0.2) /100WBC PT (10.0-13.1) SEC INR (0.9-1.1) Sodium (135-145) mmol/L Potassium (3.3-5.1) mmol/L Chloride (96-108) mmol/L Carbon Dioxide (22-29) mmol/L Anion Gap (12-20) BUN (9-16) mg/dL Creatinine (0.5-1.4) mg/dL Estim Creat Clear Calc Estimated GFR Random Glucose (60-115) mg/dL Calcium (8.4-10.2) mg/dL Magnesium (1.6-2.6) mg/dL Total Bilirubin (0.0-1.0) mg/dL AST (5-31) U/L ALT (0-31) U/L Alkaline Phosphatase (39-117) U/L Lactate Dehydrogenase (122-220) U/L Total Protein (6.5-8.0) g/dL Albumin (3.5-5.0) g/dL Lipase (8-78) U/L Urine Color Yellow Urine Appearance Cloudy Urine pH 6.5 (5.0-9.0) Ur Specific [place] 1.020 (1.005-1.025) Urine Protein Negative (Neg-Trace) mg/dL Urine Glucose (UA) Negative (Negative) mg/dL Urine Ketones Negative (Negative) mg/dL Urine Blood Negative (Negative) Urine Nitrite Negative (Negative) Ur Leukocyte Esterase Trace H (Negative) Urine RBC 0-2 (0-2) /HPF Urine WBC 0-5 (0-5) /HPF Ur Squamous Epith Cells 3-5 (0-2) /HPF Urine Bacteria None Seen (None Seen) Hyaline Casts 0-2 (0-2) /LPF Critical Care Time Critical Care Time Critical Care Time: Yes Total Critical Care Time: 45 Attestation: I attest to this time spent taking care of the patient, obtaining history, physical, reviewing labs, imaging, speaking to my attending, speaking to specialist. Discharge Plan Discharge Clinical Impression: Abdominal pain, RUQ, Diaphragmatic hernia Patient Disposition: Home, Self-Care Instructions: Hiatal Hernia (ED), Abdominal Pain (ED) Additional Instructions: Take your medications as prescribed. If you were prescribed antibiotics today, it is important that you take your medication to their entirety, do not skip any doses, do not finish them early. Follow-up with your primary care provider this week. Return to the emergency department with new or worsening symptoms. Such as fevers, chills, chest pain, shortness of breath, nausea, vomiting, dizziness, headache, vision changes, lethargy, worsening pain In case of emergency call 911 Please follow-up with thoracics. Oxycodone has been sent to your pharmacy this is a controlled medication please do not sure this medication with anyone, do not drive or operate machinery while taking this. It can cause addiction. Prescriptions: New oxycodone 5 mg capsule 5 mg PO BID PRN (Reason: pain) Qty: 6 0RF Rx Instructions: Partial Fill upon patient request. No Action fluoxetine 20 mg capsule 3 cap PO QAM dicyclomine 20 mg Tablet 20 mg PO DIRECTED Label Comments: Last took a week ago. Rx Instructions: Take 2-4 times a day. lamotrigine 25 mg tablet See Rx Instructions .ROUTE .COMPLEX 28 Days Qty: 42 0RF Rx Instructions: Take 25mg (1 tab) daily X 14 days. THEN, Take 50mg (2 tabs) daily X 14 days. lamotrigine 100 mg tablet 100 mg PO DAILY 30 Days Qty: 30 0RF Rx Instructions: After completion of lamotrigine 50mg daily, start taking lamotrigine 100mg daily. Referrals: Gayle Orellana PA [Physician Unattended Ground Sensor Specialist] - 2 days Stand Alone Forms: Work/School Release
[2022-09-06 19:04] VITALS: BP 137/45; PULSE 57; RESP 17; TEMP 37.3; O2SAT 98
--- NOTE | 2022-09-06 19:05 | PC.NURSE ---
Care of patient assumed at 1900. Patient is alert, oriented x4, and overall well-appearing. She endorses 8/10 right-sided abdominal pain radiating to right flank and it hurts to breathe. Hx fatty liver with elevated LFTs. Her PCP told her to come to ED because this discomfort has been for several weeks. PIV placed for CT scan.
[2022-09-06] MEDS: Ketorolac Tromethamine 15 MG/ML VIAL 30 MG IVPUSH (19:15)
[2022-09-06] MEDS: iohexoL 350 MG/ML 100 ML INFUS..BTL IV (20:19)
[2022-09-06] MEDS: Simethicone 80 MG TAB.CHEW 160 MG PO (20:50)
== END 2022-09-06 23:15 | disposition home or self-care (01) ==
PROVIDERS: Physician Assistant Medical; Emergency Provider Student in an Organized Health Care Education/Training Program; PCP Internal Medicine
DX: K44.9 Diaphragmatic hernia without obstruction or gangrene (principal); R10.11 Right upper quadrant pain; E66.3 Overweight; Z68.34 Body mass index [BMI] 34.0-34.9, adult; Z87.891 Personal history of nicotine dependence
CPT/HCPCS: 36415; 74177; 80053; 81001; 83615; 83690; 83735; 85025; 85610; 96374; 99283; 99284; J1885; Q9967

== ENCOUNTER 2022-11-12 12:03 | Day surgery (SDC) | payer OTHER, SELFPAY ==
--- NOTE | 2022-11-11 13:28 | HO.ANESPROP2 ---
HPI - Anesthesia Eval Consult details Narrative: 57yo F for Upper Endoscopy PMFSH Active Problems Active Problems: All Active Problems (Updated 09/26/22 @ 08:08 by Radha Mcfarland PA-C) Major depressive disorder, recurrent, moderate (Acute) Personal history of nicotine dependence (Acute) Parathyroid disease (Acute) Generalized anxiety disorder (Acute) Overweight (Acute) Skin growth (Acute) Foot pain, right (Acute) Labial cyst (Acute) Past Medical History Medical History (Updated 09/26/22 @ 08:08 by Radha Mcfarland PA-C) Diverticulosis Foot pain, right Insomnia Major depressive disorder, recurrent, moderate Overweight Parathyroid disease Personal history of nicotine dependence Skin growth Family History Family History Father Bladder cancer Mother Colon cancer Surgical History Surgical History (Updated 09/26/22 @ 08:05 by Radha Mcfarland PA-C) History of carpal tunnel surgery of left wrist History of colonoscopy History of partial colectomy History of right hip replacement Social History Social History Household Members: None Housing: House Patient Tobacco Use Status: Former Tobacco user Tobacco use type: Cigarette Cigarettes Per Day: 10 Years Smoked: 35 e-Cigarette/Vaping Use: Never Used Second Hand Smoke Exposure: No Use of substances other than those prescribed or required for medical reasons: Yes Are you DNR?: No Advance Directives: No Advance Directives Information Provided: Yes service: No Current occupational status: employed 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 occupational exposures/hazards: No Cognitive needs: No Hearing needs: No Vision needs: Yes Meds Allergies Allergy/AdvReac Type Severity Reaction Status Date / Time morphine [MORPHINE] Allergy Intermediate HIVES Verified 09/06/22 17:24 sulfamethoxazole Allergy Unknown HIVES Verified 09/06/22 17:24 [From BACTRIM] trimethoprim [From BACTRIM] Allergy Unknown HIVES Verified 09/06/22 17:24 SEASONAL ALLERGIES Allergy Mild RUNNY NOSE Uncoded 09/06/22 17:24 Home Medications Medication Instructions Recorded Confirmed Last Taken Type fluoxetine 20 mg capsule 4 cap PO QAM 07/28/22 11/12/22 08/14/22 07:00 History dicyclomine 20 mg tablet 20 mg PO DIRECTED 08/14/22 11/12/22 08/07/22 History hydroxyzine HCl 10 mg tablet 1 tab PO BID PRN Anxiety 11/11/22 11/12/22 Unknown History ondansetron HCl 4 mg tablet 1 tab PO QD-TID PRN nausea 11/11/22 11/12/22 Unknown History lamotrigine 100 mg tablet 150 mg PO DAILY 11/12/22 11/12/22 Unknown History Exam Exam Date and Time: November 11, 2022 132 Pertinent Lab Results Pertinent Lab Results: Laboratory Tests 09/06/22 09/06/22 17:44 17:44 WBC 5.5 Hgb 14.3 Hct 44.0 Plt Count 169 Sodium 141 Potassium 5.1 Chloride 105 Carbon Dioxide 26 BUN 12 Creatinine 0.72 Assessment and Plan Assessment Anesthesia Assessment: Chart Reviewed
[2022-11-12 12:30] VITALS: BMI 33.3
[2022-11-12 12:36] VITALS: BP 130/39; PULSE 80; RESP 16; TEMP 36.8; O2SAT 96
[2022-11-12] MEDS: Lactated Ringers 1,000 ML 100 ML IVCONT (12:49)
--- NOTE | 2022-11-12 13:28 | MHC.SHP ---
Pre-Procedural Eval Section A Date of Service: 11/12/22 Section B Chief Complaint: reflux,right upper quad pain Details of Present Illness: see h&p no changes Relevant Family History (Specify if Yes): No Relevant Social History: None Present Medications: see Short Stay Collaborative assessment Medical History: No relevant PMH History of Previous Operations: No relevant previous surgery Allergies: Allergies Allergy/AdvReac Type Severity Reaction Status Date / Time morphine [MORPHINE] Allergy Intermediate HIVES Verified 09/06/22 17:24 sulfamethoxazole Allergy Unknown HIVES Verified 09/06/22 17:24 [From BACTRIM] trimethoprim [From BACTRIM] Allergy Unknown HIVES Verified 09/06/22 17:24 SEASONAL ALLERGIES Allergy Mild RUNNY NOSE Uncoded 09/06/22 17:24 Review of Systems Sugical H&P ROS: Negative: Constitution, Cardiovascular, Respiratory, Neurological, Psychiatric, Hem-Onc, Allergic/Immunologic, Gastrointestinal, Genitourinary, Musculoskeletal, Integumentary, Endocrine and Eyes/Ears/Nose/Throat Exam Surgical H&P Exam: Normal: HEENT, Normal: Heart, Normal: Lungs, Normal: Extremities, Normal: Abdomen, Normal: Skin and Normal: Neurological Plan Diagnosis/Plan: Unchanged I have reviewed the history and physical and performed a pertinent physical examination on my patient. No changes have occurred unless specified. Time Spent With Patient Time: Total time managing care of this patient today ____ minutes.
[2022-11-12 14:10] VITALS: BP 121/51; PULSE 60; RESP 20; TEMP 36.2; O2SAT 95
--- NOTE | 2022-11-12 14:12 | P.BOP_ITS ---
Brief Operative Note Date of Service: 11/12/22 Pre-op diagnosis: ruq pain gerd Post-op diagnosis: same Procedure: EGD Surgeon: Shade Elder Anesthesia: MAC Was an Title Insurance Examiner used for this Procedure?: No Estimated blood loss (mL): 2 Pathology: other Condition: stable Disposition: PACU
[2022-11-12 14:25] VITALS: BP 112/43; PULSE 55; RESP 18; TEMP 37.1; O2SAT 98
--- NOTE | 2022-11-13 00:14 | OP_ITS ---
SURGEON: Shade Elder MD INDICATIONS: Right upper quadrant pain and gastroesophageal reflux disease. PREOPERATIVE DIAGNOSIS: POSTOPERATIVE DIAGNOSIS: PROCEDURE PERFORMED: Upper endoscopy with biopsy. ESTIMATED BLOOD LOSS: COMPLICATIONS: ANESTHESIA: Monitored anesthesia care. ASSISTANTS: SPECIMENS: DESCRIPTION OF PROCEDURE: Date: 11/12/22. The history and physical was performed. The risks and benefits of the procedure were explained to the patient. Informed consent was obtained. The patient was placed in the left lateral decubitus position. The Olympus video gastroscope was introduced into the esophagus, stomach, and duodenum. Examination was performed and the scope was removed. Intravenous access was temporarily lost during the procedure. The scope was removed and reinserted after a new IV site was established. She tolerated the procedure well and was taken to recovery in stable condition. FINDINGS: Esophagus: The esophagus was normal. There was a nonobstructive Schatzki ring and a sliding hiatal hernia that was small. There was no definite paraesophageal component identified to the hiatal hernia. Stomach: The stomach showed linear streaks of erythema consistent with gastritis. Biopsies were obtained from the antrum. Duodenum: There was some mild nonspecific erythema in the duodenal bulb. The 2nd portion was normal. Biopsies were obtained from the EG junction as well. IMPRESSION: 1. Hiatal hernia. 2. Gastroesophageal reflux disease. 3. Gastritis. RECOMMENDATION: Follow up the biopsy results. MD ALMA Brannon/RAY / [id number] MTDD
== END 2022-11-12 15:16 | disposition home or self-care (01) ==
PROVIDERS: PCP Internal Medicine; Visit Provider Internal Medicine Gastroenterology
PROC: 0DJ08ZZ Inspection of Upper Intestinal Tract, Via Natural or Artificial Opening Endoscopic (ICD-10-PCS; CPT 43235; principal; 2022-11-12 13:30)
DX: K29.50 Unspecified chronic gastritis without bleeding (principal); K21.9 Gastro-esophageal reflux disease without esophagitis; K44.9 Diaphragmatic hernia without obstruction or gangrene; K57.30 Diverticulosis of large intestine without perforation or abscess without bleeding; E21.3 Hyperparathyroidism, unspecified; Z79.899 Other long term (current) drug therapy; Z88.2 Allergy status to sulfonamides; Z88.8 Allergy status to other drugs, medicaments and biological substances; Z90.49 Acquired absence of other specified parts of digestive tract; Z87.19 Personal history of other diseases of the digestive system; Z86.16 Personal history of COVID-19; Z87.891 Personal history of nicotine dependence
CPT/HCPCS: 43239; 88305; 88342

== ENCOUNTER 2022-12-17 15:03 | Outpatient (REF) | payer OTHER, SELFPAY ==
[2022-12-17 17:32] LABS: Mean Corpuscular Hemoglobin 30.9 pg (27.0-33.0); PLT CLUMP 1; SCAN SMEAR FLAG 1
[2022-12-17 17:33] LABS: Basophils Percent Auto 0.3 % (0-2); Eosinophils Absolute Auto 0.1 X10*3/uL (0.0-0.4); Eosinophils Percent Auto 1.1 % (0-4); Hematocrit 45.4 % (37.0-47.0); Hemoglobin 15.1 g/dl (12.0-16.0); Imm Gran Abs Auto 0.01 X10*3/uL (0.00-0.03); Imm Gran Pct Auto 0.2 % (0.0-0.4); Lymphocytes Absolute Auto 1.4 X10*3/uL (1.2-4.9); Lymphocytes Percent Auto 21.8 % (20-40); MANUAL DIFF FLAG SCAN; Mean Corpuscular HGB Conc 33.3 g/dl (31.0-35.0); Mean Corpuscular Volume 92.8 fL (80.0-98.0); Mean Platelet Volume 10.9 fL (9.4-12.3); Monocytes Absolute Auto 0.7 X10*3/uL (0.1-1.2); Monocytes Percent Auto 10.3 % (2-11); Neutrophils Absolute Auto 4.2 x10*3/uL (2.0-8.3); Neutrophils Percent Auto 66.3 % (45-73); Red Blood Count 4.89 X10*6/uL (4.20-5.50); Red Cell Distribution Width 12.7 % (11.0-16.0)
[2022-12-17 18:03] LABS: White Blood Count 6.4 X10*3/uL (4.8-10.8)
[2022-12-17 18:04] LABS: Platelet Count 66 X10*3/uL (160-400); SLIDE REVIEW VERIFIED
[2022-12-17 18:20] LABS: Appearance Urine Clear; Color Urine Yellow; Glucose Urine UA Negative (Negative); Leukocyte Esterase Urine Trace (Negative); Nitrite Urine Negative (Negative); UMIC TRIGGER UA YES; Urine Blood Negative (Negative); Urine Ketones Negative (Negative); Urine Protein Negative (Neg-Trace)
[2022-12-17 18:25] LABS: Alanine Aminotransferase 58 U/L (0-31); Albumin Level 4.7 g/dL (3.5-5.0); Alkaline Phosphatase 75 U/L (39-117); Anion Gap 14 (12-20); Aspartate Amino Transferase 41 U/L (5-31); Bilirubin Total 0.8 mg/dL (0.0-1.0); Blood Urea Nitrogen 18 mg/dL (9-16); Calcium 11.1 mg/dL (8.4-10.2); Carbon Dioxide 25 mmol/L (22-29); Chloride 104 mmol/L (96-108); Cholesterol 182 mg/dL; Estimated Glomerular Filt Rate > 60; Glucose Fasting 75 mg/dL (60-99); Glucose Random 75 mg/dL (60-115); HDL Cholesterol 32 mg/dL; LDL Cholesterol Calculated 120 mg/dl; Potassium 5.2 mmol/L (3.3-5.1); Sodium 138 mmol/L (135-145); Total Protein 7.5 g/dL (6.5-8.0); Triglycerides 151 mg/dL
[2022-12-17 18:39] LABS: Bacteria Urine Trace (None Seen); Hyaline Casts Urine 0-2 /LPF (0-2); RBC Urine 0-2 /HPF (0-2); WBC Urine 0-5 /HPF (0-5)
[2022-12-17 18:42] LABS: TSH reflex Free T4 1.79 uIU/mL (0.32-4.0); Vitamin D 25-OH Total 38.7 ng/mL (>30)
== END 2022-12-17 15:04 | disposition home or self-care (01) ==
LOC: HO.HMGCLDS 15:03
PROVIDERS: PCP Internal Medicine; Visit Provider Internal Medicine
DX: Z00.00 Encounter for general adult medical examination without abnormal findings (principal); E21.5 Disorder of parathyroid gland, unspecified; E66.3 Overweight; F41.9 Anxiety disorder, unspecified; R35.0 Frequency of micturition; R35.89 Other polyuria
CPT/HCPCS: 36415; 80053; 80061; 81001; 82306; 84443; 85025; 87086

== ENCOUNTER 2023-01-02 16:07 | Outpatient (REF) | payer OTHER, SELFPAY ==
--- NOTE | ~2023-01-02 | US_ITS ---
EXAMINATION: US RETROPERITONEAL COMPLETE (RENAL) CLINICAL INFORMATION: Frequency of micturition. COMPARISON: CT abdomen and pelvis 09/06/2022. Ultrasound abdomen complete 07/06/2020. TECHNIQUE: Real-time imaging of the kidneys and bladder. FINDINGS: RIGHT KIDNEY: 10.2 x 5.5 x 4.9 cm (SAG x AP x TRV). The kidney is normal in size, contour, and echogenicity. Renal cortical thickness is normal. No calculi or focal parenchymal lesions. No hydronephrosis. LEFT KIDNEY: 10.6 x 4.2 x 4.3 cm (SAG x AP x TRV). The kidney is normal in size, contour, and echogenicity. Renal cortical thickness is normal. No calculi or focal parenchymal lesions. The benign Bosniak class I left renal cysts seen on the prior CT scan are not identified on the current study. No hydronephrosis. BLADDER: Well distended and normal. Bilateral ureteral jets are demonstrated. Prevoid bladder volume is 386 mL. Postvoid bladder volume is 7.0 mL. US/US retroperitoneal comp IMPRESSION: Negative exam.
== END 2023-01-02 16:08 | disposition home or self-care (01) ==
LOC: HO.US 16:07
PROVIDERS: Visit Provider Internal Medicine
DX: R35.0 Frequency of micturition (principal)
CPT/HCPCS: 76770

== ENCOUNTER 2023-04-27 08:09 | Outpatient (REF) | payer OTHER, SELFPAY | END 2023-04-27 08:10 | disposition home or self-care (01) | LOC: HO.XRAY 08:09 | PROVIDERS: PCP Internal Medicine; Visit Provider Internal Medicine Gastroenterology | DX: R10.11 Right upper quadrant pain (principal); K21.9 Gastro-esophageal reflux disease without esophagitis; K44.9 Diaphragmatic hernia without obstruction or gangrene | CPT/HCPCS: 74220 ==

== ENCOUNTER → 2023-04-27 08:11 | Outpatient (BNV) | payer OTHER, SELFPAY | PROVIDERS: PCP Internal Medicine; Visit Provider Radiology Diagnostic Radiology | DX: Z12.31 Encounter for screening mammogram for malignant neoplasm of breast (principal) | CPT/HCPCS: 74221; 77063; 77067 ==

== ENCOUNTER 2023-04-27 13:05 | Outpatient (REF) | payer OTHER, SELFPAY ==
--- NOTE | ~2023-04-27 | MM_ITS ---
EXAMINATION: MM SCREENING DIGITAL BREAST TOMOSYNTHESIS, BILATERAL CLINICAL INFORMATION: Screening. Asymptomatic. The lifetime risk of breast cancer based on the Tyrer-Cuzick Model is 16.7.%. COMPARISON: Mammography: Studies compared with prior mammograms dating back to 2018. TECHNIQUE: Digital breast tomosynthesis is performed in both the craniocaudal and mediolateral oblique views along with computer-aided detection (CAD). Synthesized 2D images are generated from the tomosynthesis. FINDINGS: There are scattered areas of fibroglandular density (ACR BI-RADS breast composition Category b). There are no significant masses, abnormal calcifications, or other abnormalities. MM/MM tomosynthesis screening BI IMPRESSION: No mammographic evidence of malignancy. ASSESSMENT: BI-RADS BI-RADS 1 - Negative RECOMMENDATION: Routine annual mammography screening. 1 year F/U This patient's information was entered into a reminder system with a target due date for their next mammogram.
== END 2023-04-27 13:06 | disposition home or self-care (01) ==
LOC: HO.MAMMO 13:05
PROVIDERS: PCP Internal Medicine; Visit Provider Internal Medicine
DX: Z12.31 Encounter for screening mammogram for malignant neoplasm of breast (principal)
CPT/HCPCS: 77063; 77067

== ENCOUNTER 2023-07-17 12:36 | Outpatient (AMB) | payer OTHER, SELFPAY ==
--- NOTE | 2023-07-17 12:54 | A.OFFPC_ITS ---
Vital Signs 07/17/23 12:55 Height 5 ft 5 in Weight 176 lb BMI 29.3 BP 120/74 Blood Pressure Location Lt brachial Position Sitting Pulse 56 Pulse Source Pulse Oximeter Pulse Oximetry (%) 99 Oxygen Delivery Method Room Air Intake Visit Reasons: Med review Intake Note: Pt is here today for a follow up visit.Pt states that she needs refills on her medications. Pt c/o urine discomfort when urinating. Allergies morphine [MORPHINE] Allergy (Intermediate, Verified 07/17/23 13:05) HIVES sulfamethoxazole [From BACTRIM] Allergy (Unknown, Verified 07/17/23 13:05) HIVES trimethoprim [From BACTRIM] Allergy (Unknown, Verified 07/17/23 13:05) HIVES SEASONAL ALLERGIES Allergy (Mild, Uncoded 07/17/23 13:05) RUNNY NOSE Medication List - Last Reconciled 07/17/23 by Consuelo Solomon MD dicyclomine 20 mg PO DIRECTED fluoxetine 60 mg (3 x 20 mg) PO QAM trazodone 100 mg PO BEDTIME Tobacco use date assessed: 07/17/23 Dental Screening Dental Screen Date: 07/17/23 Did you have a dental visit in the last 12 months?: Yes Did you have a dental problem in the last 6 months where you did not have access to dental care?: No Was dental information given to patient?: Patient has dentist HPI Med review HPI Details Patient presents for the refill on medications. She used to follow-up with Psychiatry but not recently. Depression is stable on current medications. Patient complains of increased urinary frequency and occasionally stress incontinence but denies dysuria abdominal pain fever chills. COUNTS INCLUDE 234 BEDS AT THE [facility] Medical History Personal history of nicotine dependence Major depressive disorder, recurrent, moderate Overweight Skin growth Foot pain, right Parathyroid disease Insomnia Diverticulosis Surgical History History of colonoscopy History of partial colectomy History of carpal tunnel surgery of left wrist History of right hip replacement Family History Father Bladder cancer Mother Colon cancer Social History Household Members: None Housing: House Patient Tobacco Use Status: Former Tobacco user Tobacco use type: Cigarette Cigarettes Per Day: 10 Years Smoked: 35 e-Cigarette/Vaping Use: Never Used Second Hand Smoke Exposure: No service: No Current occupational status: employed 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 1. Little interest or pleasure in doing things: several days 2. Feeling down, depressed, or hopeless: several days 3. Trouble falling or staying asleep, or sleeping too much: not at all 4. Feeling tired or having little energy: several days 5. Poor appetite or overeating: not at all 6. Feeling bad about yourself - or that you are a failure or have let yourself or your family down: several days 7. Trouble concentrating on things, such as reading the newspaper or watching television: not at all 8. Moving or speaking so slowly that other people could have noticed. Or the opposite - being so fidgety or restless that you have been moving around a lot more than usual: not at all 9. Thoughts that you would be better off or of hurting yourself in some way: several days Total score: 5 Depression Screening Interpretation: Negative Source: Developed by Drs. Jorge Kim, Pati Roque, Deng Londono and colleagues, with an educational puja from [email or web address]. Thrive Questionnaire Date Thrive assessed: 07/17/23 I am a: Patient What is your living situation today?: I have a steady place to live Within the past 12 months, did the food you bought not last and you didn't have the money to get more?: Never true Within the past 12 months, did you worry whether your food would run out before you got money to buy more?: Never true Do you have trouble paying for medicines?: No Do you have trouble getting transportation to medical appointments?: No Do you have trouble paying your heating and electricity bill?: Yes Do you have trouble taking care of your child, family member or friend?: No Do you have trouble with day-to-day activities such as bathing, preparing meals, shopping, managing finances, etc.?: No Are you currently unemployed and looking for a job?: No Are you interested in more education?: No Please select the resources that you would like help with: None Currently or been in a relationship where the following occur: no concerns reported ERYN-7 AMB Questionnaire ERYN-7 Date ERYN - 7 assessed: 07/17/23 Feeling nervous, anxious, or on edge: 2 = More than half the days Not being able to stop or control worryin = Several days Worrying too much about different things: 1 = Several days Trouble relaxin = Not at all Being so restless that it is hard to sit still: 0 = Not at all Becoming easily annoyed or irritable: 1 = Several days Feeling afraid as if something awful might happen: 0 = Not at all Total ERYN-7 score (0-4 normal; 5-9 mild; 10-14 moderate; 15-21 severe): 5 Source: Developed by Drs. Jorge Kim, Pati Roque, Deng Londono and colleagues, with an educational puja from [email or web address]. Review of Systems Const All systems reviewed & are unremarkable except as noted in HPI and below Reports no additional complaints Eyes Reports no additional complaints ENT Reports no additional complaints Card Reports no additional complaints Resp Reports no additional complaints GI Reports no additional complaints Reports no additional complaints Physical exam (Primary Care) Vital Signs: Last Vital Signs Pulse 56 07/17/23 12:55 BP 120/74 07/17/23 12:55 Pulse Ox 99 07/17/23 12:55 Oxygen Delivery Method Room Air 07/17/23 12:55 BMI result Body Mass Index 29.3 Tobacco/Smoking Status: Tobacco use Status Tobacco use date assessed 07/17/23 07/17/23 13:09 Patient Tobacco Use Status Former Tobacco user 07/17/23 12:55 Tobacco use type Cigarette 07/17/23 12:55 e-Cigarette/Vaping Use Never Used 07/17/23 12:55 PHQ-9: PHQ-9 Score PHQ-9: Total score 5 07/17/23 13:47 Depression Screening Interpretation: Negative Thrive Assessment: Date of Thrive Assessment Date Thrive assessed 07/17/23 07/17/23 13:47 Currently or been in a relationship where the following occur: no concerns reported Const General: no acute distress HENMT Head: Yes normal to inspection Neck Neck: Yes supple Resp Effort & Inspection: normal respiratory effort Auscultation: clear to auscultation bilaterally Cardio Rhythm: regular rhythm Heart sounds: S1 normal heart sound present and S2 normal heart sound present GI Inspection: Yes normal to inspection Palpation (GI): Soft to palpation Percussion: Yes normal to percussion Auscultation: normal bowel sounds Results AMB Urinalysis, Automated UA Leukoctes 0 Justus/uL Last Edit by Zarina Bateman [facility] on 07/17/23 13:13 UA Nitrite Negative Last Edit by Zarina Bateman [facility] on 07/17/23 13:13 UA Urobilinogen 0.2 mg/dL Last Edit by Zarina Bateman [facility] on 07/17/23 13: 13 UA Protein 0 mg/dL Last Edit by Zarina Bateman [facility] on 07/17/23 13:13 UA pH 6.0 Last Edit by Zarina Bateman [facility] on 07/17/23 13:13 UA Blood 0 Spike/uL Last Edit by Zarina Bateman [facility] on 07/17/23 13:13 UA Specific [place] 1.010 Last Edit by Zarina Bateman [facility] on 07/17/23 13 :13 UA Ketone Negative Last Edit by Zarina Bateman [facility] on 07/17/23 13:13 UA Bilirubin 0 mg/dL Last Edit by Zarina Bateman [facility] on 07/17/23 13:13 UA Glucose 0 mg/dL Last Edit by Zarina Bateman [facility] on 07/17/23 13:13 Results Reviewed Results Reviewed: Laboratory Last Values Urine pH (Auto) 6.0 07/17/23 13:12 Specific [place] (Auto) 1.010 07/17/23 13:12 Urine Protein (Auto) 0 mg/dL 07/17/23 13:12 Glucose (UA)(Auto) 0 mg/dL 07/17/23 13:12 Urine Ketones (Auto) Negative 07/17/23 13:12 Urine Blood (Auto) 0 Spike/uL 07/17/23 13:12 Urine Nitrite (Auto) Negative 07/17/23 13:12 Urine Bilirubin (Auto) 0 mg/dL 07/17/23 13:12 Urine Urobilinogen (Auto) 0.2 mg/dL 07/17/23 13:12 Leukocyte Esterase (Auto) 0 Justus/uL 07/17/23 13:12 Assessment and Plan Assessment & Plan (1) Elevated LFTs: Comment: normal liver on Abd CT 08/16 Code(s): R7.89 - Other specified abnormal findings of blood chemistry Plan: obtain fasting labs, (2) Annual physical exam: Code(s): Z00.00 - Encounter for general adult medical examination without abnormal findings Plan: Pt will return for PE with fasting labs Orders: Orders AMB Urinalysis Automated Today Z13.9 - Encounter for screening, unspecified Hepatitis B,C Profile 2 Months . - Other specified abnormal findings of blood chemistry, Z00.00 - Encounter for general adult medical examination without abnormal findings Comprehensive [place]. Panel Fast 2 Months . - Other specified abnormal findings of blood chemistry, Z00.00 - Encounter for general adult medical examination without abnormal findings Lipid Panel 2 Months R7. - Other specified abnormal findings of blood chemistry, Z00.00 - Encounter for general adult medical examination without abnormal findings Complete Blood Count Auto Diff 2 Months R7. - Other specified abnormal f indings of blood chemistry, Z00.00 - Encounter for general adult medical examination without abnormal findings ZACKARY Reflex Titer and Pattern 2 Months R7. - Other specified abnormal findings of blood chemistry, Z00.00 - Encounter for general adult medical examination without abnormal findings IRON PROFILE 2 Months R7. - Other specified abnormal findings of blood chemistry, Z00.00 - Encounter for general adult medical examination without abnormal findings Ceruloplasmin 2 Months R7. - Other specified abnormal findings of blood chemistry, Z00.00 - Encounter for general adult medical examination without abnormal findings Urine Culture Today R35.0 - Frequency of micturition, R35.89 - Other polyuria Medications: New fluoxetine 60 mg (3 x 20 mg) PO QAM 270 caps 3RF oxybutynin chloride ER 10 mg PO DAILY 90 tabs 1RF Refilled trazodone 100 mg PO BEDTIME 90 tabs 3RF Coding Level of Care Code Est Pt Level 3 (09516) Diagnoses Elevated LFTs R7. Annual physical exam Z00.00
[2023-07-17 12:55] VITALS: BP 120/74; PULSE 56; O2SAT 99; BMI 29.3
== END 2023-07-17 14:50 | disposition home or self-care (01) ==
PROVIDERS: PCP Internal Medicine; Visit Provider Internal Medicine
DX: R35.0 Frequency of micturition (principal); R79.89 Other specified abnormal findings of blood chemistry
CPT/HCPCS: 81003; 99213

== ENCOUNTER 2023-07-17 14:13 | Outpatient (REF) | payer OTHER, SELFPAY | END 2023-07-17 14:14 | disposition home or self-care (01) | LOC: HO.LAB 14:13 | PROVIDERS: Visit Provider Internal Medicine | DX: R35.0 Frequency of micturition (principal); R35.89 Other polyuria | CPT/HCPCS: 87086 ==

== ENCOUNTER 2023-10-18 12:02 | Emergency (ER) | payer OTHER, SELFPAY ==
--- NOTE | ~2023-10-18 | CT_ITS ---
EXAMINATION: CT ABDOMEN AND PELVIS WITHOUT CONTRAST CLINICAL INFORMATION: Abdominal pain, nausea and diarrhea COMPARISON: CT abdomen pelvis 09/06/2022 TECHNIQUE: Multidetector volumetric imaging was performed from the superior aspect of the liver through the pubic symphysis. Sagittal and coronal reformatted images were obtained on the technologist's workstation. This CT examination was performed using dose optimization techniques as appropriate, variously including the following: *Automated exposure control *Adjustment of mA and/or kV according to patient size (this includes techniques or standardized protocols for targeted exams where dose is matched to indication/reason for exam; i.e. extremities or head) *Use of iterative reconstruction technique DLP: 708 mGy-cm FINDINGS: LUNG BASES: The lung bases are clear. Mild atelectatic changes seen right middle lobe. Heart size is normal. Mildly eventration of right hemidiaphragm. LIVER, GALLBLADDER, AND BILIARY TREE: The right hepatic lobe is small. The left hepatic lobe measures 23 cm in transverse dimension is a 5 mm hypodensity probable cyst segment 4A. No additional lesions seen no intrahepatic ductal dilatation. the gallbladder is unremarkable with no evidence of radiopaque gallstones, gallbladder wall thickening, or obvious pericholecystic inflammatory changes. PANCREAS: Unremarkable. SPLEEN: Unremarkable. ADRENAL GLANDS: Unremarkable. KIDNEYS AND URETERS: The kidneys are normal in size, shape, and attenuation. No hydronephrosis, hydroureter, or calculi seen. No perinephric stranding. There is a 1 cm exophytic cyst along the posterior cortex of mid pole left kidney previously described pole cyst produces palpable cyst left kidney is barely visible and measures 5 mm. BLADDER: Unremarkable. GASTROINTESTINAL TRACT: There is scattered stool, diverticuli and gas in colon without distention. The small bowel loops are normal. There is annular sutures in the sigmoid colon with widely patent lumen. The small bowel loops are normal caliber. No free air or free fluid seen. ABDOMINAL WALL: No significant hernia is appreciated. LYMPH NODES: Normal. VASCULAR: Unremarkable. PELVIC VISCERA: The uterus is anteverted and appears unremarkable. There is no adnexal mass or free fluid. OSSEOUS STRUCTURES: No aggressive lytic or sclerotic process seen CT/CT abdomen pelvis wo IV con IMPRESSION: Small right hepatic lobe with enlarged left hepatic lobe but no focal lesion seen. Colonic diverticulosis without diverticulitis. Mild constipation. No acute intra-abdominal process seen. No major change from previous exam 09/06/2022. Fleischner guidelines were followed.
[2023-10-18 12:38] VITALS: BP 146/73; PULSE 65; RESP 18; TEMP 36.9; O2SAT 96; BMI 31.1
--- NOTE | 2023-10-18 12:38 | ED_ITS ---
HPI - Abdominal Pain General Chief Complaint: Abdominal Pain Stated Complaint: Diverticulitis Time Seen by Provider: 10/18/23 16:16 Source: patient and family Mode of arrival: ambulatory Limitations: no limitations History of Present Illness HPI narrative: 58-year-old female came in for evaluation of abdominal pain. Patient's symptoms started 3 days ago as intermittent and left lower quadrant abdominal pain that is gradually getting very severe patient's pain today is 10/10 mostly localized to the left side of the abdomen with no radiation, pain was associated with loose bowel movement, chills, feeling nauseous. No clear aggravating or relieving factor. Patient had a history of diverticulitis with partial colectomy. Last flare of diverticulitis was 2 years ago patient required hospitalization and was treated medically. Otherwise no other past surgical history, patient is passing flatus. No fever, no hematuria, no dysuria, no frequency urination, no bloody bowel movement, no vomiting. Related Data Home Medications Medication Instructions Recorded Confirmed dicyclomine 20 mg tablet 20 mg PO DIRECTED 08/14/22 07/17/23 Previous Rx's Medication Instructions Recorded fluoxetine 20 mg capsule 60 mg (3 x 20 mg) PO QAM #270 caps 07/17/23 oxybutynin chloride 10 mg 10 mg PO DAILY #90 tabs 07/17/23 tablet,extended release 24 hr trazodone 100 mg tablet 100 mg PO BEDTIME #90 tabs 07/17/23 amoxicillin 875 mg-potassium 1 tab PO BID #14 tabs 10/18/23 clavulanate 125 mg tablet Allergies Allergy/AdvReac Type Severity Reaction Status Date / Time morphine [MORPHINE] Allergy Intermediate HIVES Verified 07/17/23 13:05 sulfamethoxazole Allergy Unknown HIVES Verified 07/17/23 13:05 [From BACTRIM] trimethoprim [From BACTRIM] Allergy Unknown HIVES Verified 07/17/23 13:05 SEASONAL ALLERGIES Allergy Mild RUNNY NOSE Uncoded 07/17/23 13:05 Review of Systems Review of Systems All other systems are reviewed and are negative Constitutional: Reports as per HPI and Reports no additional constitutional complaints Eyes: Reports as per HPI and Reports no additional eye complaints Reports system reviewed and no additional complaints, except as documented Cardiovascular: Reports as per HPI and Reports no additional cardiovascular complaints Respiratory: Reports as per HPI and Reports no additional respiratory complaints Gastrointestinal: Reports as per HPI and Reports no additional gastrointestinal complaints Genitourinary: Reports no additional female genitourinary complaints Musculoskeletal: Reports no additional musculoskeletal complaints Skin/Breast: Reports system reviewed and no additional complaints, except as docu Psychiatric: Reports no additional psychiatric complaints Endocrine: Reports no additional endocrine complaints Hematologic/Lymphatic: Reports no additional hematologic/lymphatic complaints Allergic/Immunologic: Reports no additional allergic/immunologic complaints Reports system reviewed and no additional complaints, except as documented and Reports Abnormal speech present [facility] Past Medical History Medical History Personal history of nicotine dependence Major depressive disorder, recurrent, moderate Overweight Skin growth Foot pain, right Parathyroid disease Insomnia Diverticulosis Surgical History History of colonoscopy History of partial colectomy History of carpal tunnel surgery of left wrist History of right hip replacement Family History Family History Father Bladder cancer Mother Colon cancer Social History Social History Household Members: None Housing: House Patient Tobacco Use Status: Former Tobacco user Tobacco use type: Cigarette Cigarettes Per Day: 10 Years Smoked: 35 e-Cigarette/Vaping Use: Never Used Second Hand Smoke Exposure: No Advance Directives: No Advance Directives Information Provided: No service: No Current occupational status: employed 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 Blood pressure elevated. Heart rate normal. Respiratory rate normal. Temperature normal. Oxygen saturation normal. Appearance: Alert. Oriented X3. No acute distress. Head: Normal external exam. Normocephalic. Atraumatic. No Av[place]ño signs noted. No raccoon eyes noted Eyes: PERRLA. EOMI. Conjunctiva and sclera normal. Eyelids normal. ENT: TM's Normal. Pharynx normal. Uvula midline. Moist mucous membranes. No trismus noted. No drooling noted. No muffled voice noted. Neck: Normal inspection. Neck supple. FROM. No adenopathy. Thyroid Normal. No meningeal signs. No neck mass noted. CVS: Normal heart rate and rhythm. Heart sound normal. No murmurs noted. Pulses normal throughout. Respiratory: No respiratory distress. Painless inspiration. Breath sounds normal. No wheezes/rales/rhonchi noted. Chest nontender. No accessory muscle usage noted or decreased air movement noted. Abdomen: Diffuse mild tenderness, voluntarily guarding, no rebound tenderness. Bowel sounds normal in all 4 quadrants. No distention noted. No organomegaly noted. No visible injury noted. Back: No CVA tenderness. Full range of motion noted. Skin: Skin warm and dry. Normal skin color. Normal skin turgor. No rashes/lesions/lacerations noted. Extremities: No lower extremity edema. Extremities exhibit normal range of motion. Extremities nontender. Neuro: Oriented X 3. Cranial nerve exam: II-XII are grossly intact No motor deficit. No sensory deficit. Reflexes normal. Course Course Course Narrative: This is an RME: Additional HPI, ROS, PE not included below will be deferred to primary provider. Patient is a 58-year-old female who presents emergency department for evaluation of nausea, L ABD pain, diarrhea x2 episodes yesterday without hematochezia or melena. Symptom onset 3 days ago. Reports hx diverticulitis with colon resection 15 yrs ago. Last episode of diverticulitis 2 years ago. Reports this feels similar to prior episodes. Denies fevers, chills, known sick contacts. Plan: labs, placed in [facility] pending bed availability Reevaluation(s) Reevaluation #1: Patient feels better after received 1 mg of Dilaudid in the emergency department with hydration, abdominal CT is negative for acute diverticulitis or perforation, CT is showing constipation patient had bowel movement yesterday do not feel constipated, patient has no nausea or vomiting. I discussed with the patient the bones and cons of taking Augmentin for an early diverticulitis that may be not showing on the CT. Patient was instructed to follow-up with GI. Time: 18:05 Medical Decision Making Differential Diagnosis Differential Diagnoses: The differential diagnosis associated with the presentation includes (Diverticulitis, colitis, kidney stones, UTI, pyelonephritis, electrolyte abnormality, severe anemia, constipation.) Admission/Observation Consideration of admission/observation: Escalation of care including admission/observation considered Lab Data MDM Lab Attestation statement: I reviewed the patient's lab results. 10/18/23 13:08 10/18/23 13:08 Labs: Lab Results 10/18/23 10/18/23 Range/Units 13:08 17:13 WBC 6.5 (4.8-10.8) X10*3/uL RBC 4.64 (4.20-5.50) X10*6/uL Hgb 14.8 (12.0-16.0) g/dl Hct 44.1 (37.0-47.0) % MCV 95.0 (80.0-98.0) fL MCH 31.9 (27.0-33.0) pg MCHC 33.6 (31.0-35.0) g/dl RDW 12.7 (11.0-16.0) % Plt Count 141 L D (160-400) X10*3/uL MPV 11.3 (9.4-12.3) fL Immature Gran % (Auto) 0.5 H (0.0-0.4) % Neut % (Auto) 70.2 (45-73) % Lymph % (Auto) 21.6 (20-40) % Mason % (Auto) 6.5 (2-11) % Eos % (Auto) 0.9 (0-4) % Baso % (Auto) 0.3 (0-2) % Lymph # (Auto) 1.4 (1.2-4.9) X10*3/uL [place] # (Auto) 0.4 (0.1-1.2) X10*3/uL Eos # (Auto) 0.1 (0.0-0.4) X10*3/uL Baso # (Auto) 0.0 (0.0-0.2) X10*3/uL Abs Immat Gran (auto) 0.03 (0.00-0.03) X10*3/uL Absolute Neuts (auto) 4.5 (2.0-8.3) x10*3/uL Absolute Nucleated RBC 0.000 (0.0-0.012) X10*3/uL Nucleated RBC % (auto) 0.0 (0.0-0.2) /100WBC Sodium 140 (135-145) mmol/L Potassium 4.7 (3.3-5.1) mmol/L Chloride 106 (96-108) mmol/L Carbon Dioxide 25 (22-29) mmol/L Anion Gap 14 (12-20) BUN 12 (9-16) mg/dL Creatinine 0.76 (0.5-1.4) mg/dL Estim Creat Clear Calc 83.6 Estimated GFR > 60 Random Glucose 115 (60-115) mg/dL Calcium 9.4 D (8.4-10.2) mg/dL Total Bilirubin 0.5 (0.0-1.0) mg/dL AST 21 (5-31) U/L ALT 18 (0-31) U/L Alkaline Phosphatase 55 (39-117) U/L Total Protein 7.6 (6.5-8.0) g/dL Albumin 4.5 (3.5-5.0) g/dL Lipase 29 (8-78) U/L Urine Color Yellow Urine Appearance Clear Urine pH 6.5 (5.0-9.0) Ur Specific [place] 1.010 (1.005-1.025) Urine Protein Negative (Neg-Trace) mg/dL Urine Glucose (UA) Negative (Negative) mg/dL Urine Ketones Negative (Negative) mg/dL Urine Blood Negative (Negative) Urine Nitrite Negative (Negative) Ur Leukocyte Esterase Negative (Negative) Independent Interpretation I performed an independent interpretation of an: CT Scan (Abdomen and pelvis:Small right hepatic lobe with enlarged left hepatic lobe but no focal lesion seen. Colonic diverticulosis without diverticulitis. Mild constipation. No acute intra-abdominal process seen. No major change from previous exam 09/06/2022. Fleischner guidelines were followed.) Radiology Impression Discussion of test interpretation with radiology: I have reviewed the radiologist's reading. Medications Administered Discontinued Medications Generic Name Dose Route Start Last Admin Trade Name Freq PRN Reason Stop Dose Admin Hydromorphone HCl 1 mg 10/18/23 17:28 10/18/23 17:47 Hydromorphone Hcl 1 Mg/Ml Syringe IVPUSH 10/18/23 17:29 1 mg ONCE ONE Administration Protocol Magnesium Hydroxide 30 ml 10/18/23 17:41 10/18/23 17:47 Milk Of Magnesia 30 Ml Oral.Susp PO 10/18/23 17:42 30 ml ONCE ONE Administration Discharge Plan Discharge Clinical Impression: Abdominal pain Patient Disposition: Home, Self-Care Instructions: Abdominal Pain (ED) Additional Instructions: Take [id number] 200 mg tablet of Tylenol every 6 hours if needed for pain and you can alternate with Motrin 200 mg tablet every 6 hours if needed for pain. Take the antibiotic course as instructed. Follow-up with your GI. Prescriptions: New amoxicillin-pot clavulanate 875-125 mg tablet 1 tab PO BID Qty: 14 0RF No Action dicyclomine 20 mg Tablet 20 mg PO DIRECTED Patient Comments: Last took a week ago. Rx Instructions: Take 2-4 times a day. fluoxetine 20 mg capsule 60 mg PO QAM Qty: 270 3RF trazodone 100 mg tablet 100 mg PO BEDTIME Qty: 90 3RF oxybutynin chloride 10 mg tablet extended release 24hr 10 mg PO DAILY Qty: 90 1RF Referrals: Consuelo Solomon MD [Primary Care Provider] - Iveth Collins MD [Physician] - Interventions: ED Discharge Assessment Last Done: 10/18/23 18:53 Discharge Date/Time: 10/18/23 19:02
[2023-10-18 13:16] LABS: Basophils Percent Auto 0.3 % (0-2); Eosinophils Absolute Auto 0.1 X10*3/uL (0.0-0.4); Eosinophils Percent Auto 0.9 % (0-4); Hematocrit 44.1 % (37.0-47.0); Hemoglobin 14.8 g/dl (12.0-16.0); Imm Gran Abs Auto 0.03 X10*3/uL (0.00-0.03); Imm Gran Pct Auto 0.5 % (0.0-0.4); Lymphocytes Absolute Auto 1.4 X10*3/uL (1.2-4.9); Lymphocytes Percent Auto 21.6 % (20-40); MANUAL DIFF FLAG NO; Mean Corpuscular HGB Conc 33.6 g/dl (31.0-35.0); Mean Corpuscular Hemoglobin 31.9 pg (27.0-33.0); Mean Platelet Volume 11.3 fL (9.4-12.3); Monocytes Absolute Auto 0.4 X10*3/uL (0.1-1.2); Monocytes Percent Auto 6.5 % (2-11); Neutrophils Absolute Auto 4.5 x10*3/uL (2.0-8.3); Neutrophils Percent Auto 70.2 % (45-73); Platelet Count 141 X10*3/uL (160-400); Red Blood Count 4.64 X10*6/uL (4.20-5.50); Red Cell Distribution Width 12.7 % (11.0-16.0); White Blood Count 6.5 X10*3/uL (4.8-10.8)
[2023-10-18 13:36] LABS: Alanine Aminotransferase 18 U/L (0-31); Albumin Level 4.5 g/dL (3.5-5.0); Alkaline Phosphatase 55 U/L (39-117); Anion Gap 14 (12-20); Aspartate Amino Transferase 21 U/L (5-31); Bilirubin Total 0.5 mg/dL (0.0-1.0); Blood Urea Nitrogen 12 mg/dL (9-16); Calcium 9.4 mg/dL (8.4-10.2); Carbon Dioxide 25 mmol/L (22-29); Chloride 106 mmol/L (96-108); Creatinine Clr Calc Pharmacy 83.6; Estimated Glomerular Filt Rate > 60; Glucose Random 115 mg/dL (60-115); Lipase 29 U/L (8-78); Potassium 4.7 mmol/L (3.3-5.1); Sodium 140 mmol/L (135-145); Total Protein 7.6 g/dL (6.5-8.0)
[2023-10-18 16:00] VITALS: BP 130/64; PULSE 53; RESP 18; TEMP 37; O2SAT 100
[2023-10-18 17:29] LABS: Appearance Urine Clear; Color Urine Yellow; Glucose Urine UA Negative (Negative); Leukocyte Esterase Urine Negative (Negative); Nitrite Urine Negative (Negative); PH 6.5 (5.0-9.0); Urine Blood Negative (Negative); Urine Ketones Negative (Negative); Urine Protein Negative (Neg-Trace)
[2023-10-18] MEDS: Milk of Magnesia 30 ML ORAL.SUSP PO (17:47)
[2023-10-18] MEDS: HYDROmorphone HCl 1 MG/ML SYRINGE IVPUSH (17:47)
[2023-10-18 17:51] VITALS: BP 109/57; PULSE 57; RESP 16; O2SAT 98
== END 2023-10-18 19:02 | disposition home or self-care (01) ==
PROVIDERS: Nurse Practitioner Family; Emergency Provider Emergency Medicine; PCP Internal Medicine
DX: R10.32 Left lower quadrant pain (principal); Z87.19 Personal history of other diseases of the digestive system; Z90.49 Acquired absence of other specified parts of digestive tract
CPT/HCPCS: 36415; 74176; 80053; 81003; 83690; 85025; 96374; 99284; J1170

== ENCOUNTER 2024-02-04 11:18 | Outpatient (AMB) | payer OTHER, SELFPAY ==
[2024-02-04 11:41] VITALS: BP 120/78; PULSE 65; O2SAT 96; BMI 31.9
--- NOTE | 2024-02-04 11:41 | A.OFFPC_ITS ---
Vital Signs 02/04/24 11:41 Height 5 ft 4 in Weight 186 lb BMI 31.9 BP 120/78 Blood Pressure Location Lt brachial Position Sitting Pulse 65 Pulse Source Pulse Oximeter Pulse Oximetry (%) 96 Oxygen Delivery Method Room Air Intake Visit Reasons: PE Intake Note: Pt is here today for PE. Allergies morphine [MORPHINE] Allergy (Intermediate, Verified 02/04/24 11:43) HIVES sulfamethoxazole [From BACTRIM] Allergy (Unknown, Verified 02/04/24 11:43) HIVES trimethoprim [From BACTRIM] Allergy (Unknown, Verified 02/04/24 11:43) HIVES bupropion [From Wellbutrin] Adverse Reaction (Intermediate, Verified 02/04/24 12:13) Nausea SEASONAL ALLERGIES Allergy (Mild, Uncoded 02/04/24 11:43) RUNNY NOSE Tobacco use date assessed: 02/04/24 Dental Screening Dental Screen Date: 02/04/24 Did you have a dental visit in the last 12 months?: Yes Did you have a dental problem in the last 6 months where you did not have access to dental care?: No Was dental information given to patient?: Patient has dentist HPI PE HPI Details Pt presents for PE. Pt c/o morning bilateral hand stiffness, achiness and feeling of swelling lasting for up to 1 hr, bilateral hip and LBP pain and stiffness worse after walking. Patient reports worsening depression despite taking fluoxetine and trazodone. Patient used to see a counselor and Psychiatry but not recently. She denies suicidal ideation. [facility] Medical History (Updated 02/04/24 @ 12:53 by Consuelo Solomon MD) Major depressive disorder, recurrent, moderate Overweight Skin growth Foot pain, right Parathyroid disease Insomnia Diverticulosis Surgical History Hx of parathyroidectomy History of colonoscopy History of partial colectomy History of carpal tunnel surgery of left wrist History of right hip replacement Family History Father Bladder cancer Mother Colon cancer Social History Household Members: None Housing: House Patient Tobacco Use Status: Former Tobacco user Tobacco use type: Cigarette Cigarettes Per Day: 10 Years Smoked: 35 e-Cigarette/Vaping Use: Never Used Second Hand Smoke Exposure: No service: No Current occupational status: employed 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 1. Little interest or pleasure in doing things: nearly every day 2. Feeling down, depressed, or hopeless: more than half the days 3. Trouble falling or staying asleep, or sleeping too much: more than half the days 4. Feeling tired or having little energy: nearly every day 5. Poor appetite or overeating: more than half the days 6. Feeling bad about yourself - or that you are a failure or have let yourself or your family down: more than half the days 7. Trouble concentrating on things, such as reading the newspaper or watching television: more than half the days 8. Moving or speaking so slowly that other people could have noticed. Or the opposite - being so fidgety or restless that you have been moving around a lot more than usual: not at all 9. Thoughts that you would be better off or of hurting yourself in some way: several days Total score: 17 Depression Screening Interpretation: Positive (Patient is looking for new counselor and psychiatrist) Depression Screening Follow-up: Existing condition and In treatment Depression Screening Done: Yes 94173 - PHQ-9 Billing: Yes Source: Developed by Drs. Jorge Kim, Pati Roque, Deng Londono and colleagues, with an educational puja from [employer]. Thrive Questionnaire Date Thrive assessed: 02/04/24 I am a: Patient What is your living situation today?: I have a steady place to live Within the past 12 months, did the food you bought not last and you didn't have the money to get more?: Sometimes True Within the past 12 months, did you worry whether your food would run out before you got money to buy more?: Sometimes True Do you have trouble paying for medicines?: No Do you have trouble getting transportation to medical appointments?: No Do you have trouble paying your heating and electricity bill?: No Do you have trouble taking care of your child, family member or friend?: No Do you have trouble with day-to-day activities such as bathing, preparing meals, shopping, managing finances, etc.?: No Are you currently unemployed and looking for a job?: Yes Are you interested in more education?: No Please select the resources that you would like help with: Job search/training THRIVE Score: 2 AUDIT C Alcohol Use Questionnaire (AUDIT-C) 1. How often do you have a drink containing alcohol?: Monthly or less 2. How many drinks containing alcohol do you have on a typical day when you are drinking?: 1 or 2 3. How often do you have six or more drinks on one occasion?: Never Total Score: 1 ERYN-7 AMB Questionnaire ERYN-7 Date ERYN - 7 assessed: 02/04/24 Feeling nervous, anxious, or on edge: 3 = Nearly every day Not being able to stop or control worryin = More than half the days Worrying too much about different things: 2 = More than half the days Trouble relaxin = More than half the days Being so restless that it is hard to sit still: 0 = Not at all Becoming easily annoyed or irritable: 2 = More than half the days Feeling afraid as if something awful might happen: 1 = Several days Total ERYN-7 score (0-4 normal; 5-9 mild; 10-14 moderate; 15-21 severe): 12 Source: Developed by Drs. Jorge Kim, Pati Roque, Deng Londono and colleagues, with an educational puja from [employer]. Review of Systems Const All systems reviewed & are unremarkable except as noted in HPI and below Reports no additional complaints Eyes Reports no additional complaints ENT Reports no additional complaints Card Reports no additional complaints Resp Reports no additional complaints GI Reports no additional complaints Reports no additional complaints Physical exam (Primary Care) Vital Signs: Last Vital Signs Pulse 65 02/04/24 11:41 BP 120/78 02/04/24 11:41 Pulse Ox 96 02/04/24 11:41 Oxygen Delivery Method Room Air 02/04/24 11:41 BMI result Body Mass Index 31.9 Tobacco/Smoking Status: Tobacco use Status Tobacco use date assessed 02/04/24 02/04/24 11:47 Patient Tobacco Use Status Former Tobacco user 02/04/24 11:47 Tobacco use type Cigarette 02/04/24 11:47 e-Cigarette/Vaping Use Never Used 02/04/24 11:47 PHQ-9: PHQ-9 Score PHQ-9: Total score 17 02/04/24 13:43 Depression Screening Interpretation: Positive (Patient is looking for new counselor and psychiatrist) Depression Screening Follow-up: Existing condition and In treatment Thrive Assessment: Date of Thrive Assessment Date Thrive assessed 02/04/24 02/04/24 13:43 Const General: no acute distress HENMT Head: Yes normal to inspection Ears: hearing grossly normal bilaterally Face and sinus: Yes normal facial exam Mouth: Normal oral and palatal mucosa present Eyes General: appearance normal, both eyes and all related structures Neck Neck: Yes no lymphadenopathy and Yes supple Chest Breast/axilla inspection: normal inspection of the breasts Breast/axilla palpation: normal palpation of the breasts and no axillary lymphadenopathy Resp Effort & Inspection: normal respiratory effort Auscultation: clear to auscultation bilaterally Cardio Rhythm: regular rhythm Heart sounds: S1 normal heart sound present and S2 normal heart sound present GI Inspection: Yes normal to inspection Palpation (GI): Soft to palpation Percussion: Yes normal to percussion Auscultation: normal bowel sounds Speculum Exam - Vagina: normal appearance of the vagina Speculum Exam - Cervix: normal appearance of the cervix Bimanual exam- vagina & uterus: normal bimanual exam Extrem Other: Both hands no joint swelling erythema warmth or tenderness, General: Yes no clubbing, cyanosis or edema Assessment and Plan Assessment & Plan (1) Overweight: Code(s): E66.3 - Overweight Plan: Patient requested referral to pst specialist (2) Incontinence: Code(s): R32 - Unspecified urinary incontinence Plan: Referred to urology (3) Annual physical exam: Code(s): Z00.00 - Encounter for general adult medical examination without abnormal findings Plan: Well-balanced diet regular exercise discussed with the patient she is up-to-date with mammogram colonoscopy and Pap smear was done today (4) Arthralgia: Code(s): M25.50 - Pain in unspecified joint Plan: For symmetrical arthralgia obtain arthritis panel x-rays of both hands and refer to pants presser automatic per patient's request (5) Major depressive disorder, recurrent, moderate: Code(s): F33.1 - Major depressive disorder, recurrent, moderate Plan: Continue current medications patient will schedule an appointment with a new counselor and will follow-up with the psychiatrist (6) Parathyroid disease: Comment: Follows up with Dr. Granado Code(s): E21.5 - Disorder of parathyroid gland, unspecified Plan: Follow-up with endocrinology Orders: Orders Rheumatoid Factor Today M25.50 - Pain in unspecified joint, Z00.00 - Encounter for general adult medical examination without abnormal findings, Z87.891 - Personal history of nicotine dependence Cyclic Citrullinated Peptide Today M25.50 - Pain in unspecified joint, Z00.00 - Encounter for general adult medical examination without abnormal findings, Z87.891 - Personal history of nicotine dependence Complete Blood Count Auto Diff Today M25.50 - Pain in unspecified joint, Z00.00 - Encounter for general adult medical examination without abnormal findings, Z87.891 - Personal history of nicotine dependence XR hand LT min 3V Today M25.50 - Pain in unspecified joint Pap Smear Today Z00.00 - Encounter for general adult medical examination without abnormal findings Lipid Panel Today M25.50 - Pain in unspecified joint, Z00.00 - Encounter for general adult medical examination without abnormal findings, Z87.891 - Personal history of nicotine dependence Comprehensive [place]. Panel Fast Today M25.50 - Pain in unspecified joint, Z00.00 - Encounter for general adult medical examination without abnormal findings, Z87.891 - Personal history of nicotine dependence Erythrocyte Sedimentation Rate Today M25.50 - Pain in unspecified joint, Z00.00 - Encounter for general adult medical examination without abnormal findings, Z87.891 - Personal history of nicotine dependence C Reactive Protein Today M25.50 - Pain in unspecified joint, Z00.00 - Encounter for general adult medical examination without abnormal findings, Z87.891 - Personal history of nicotine dependence ZACKARY Reflex Titer and Pattern Today M25.50 - Pain in unspecified joint, Z00.00 - Encounter for general adult medical examination without abnormal findings, Z87.891 - Personal history of nicotine dependence XR hand RT 2V Today M25.50 - Pain in unspecified joint Referrals Nutrition/Dietitian Referral E66.3 - Overweight Urology Referral M25.50 - Pain in unspecified joint, R32 - Unspecified urinary incontinence, Z00.00 - Encounter for general adult medical examination without abnormal findings, Z87.891 - Personal history of nicotine dependence Rheumatology Referral M25.50 - Pain in unspecified joint Coding Level of Care Code Est Pt Prev Care 40-64y(69100) Diagnoses Overweight E66.3 Incontinence R32 Annual physical exam Z00.00 Arthralgia M25.50 Major depressive disorder, recurrent, moderate F33.1 Parathyroid disease E21.5
== END 2024-02-04 13:07 | disposition home or self-care (01) ==
PROVIDERS: PCP Internal Medicine; Visit Provider Internal Medicine
DX: Z00.00 Encounter for general adult medical examination without abnormal findings (principal); F33.1 Major depressive disorder, recurrent, moderate; E21.5 Disorder of parathyroid gland, unspecified; E66.3 Overweight; R32 Unspecified urinary incontinence; M25.50 Pain in unspecified joint
CPT/HCPCS: 99396

== ENCOUNTER 2024-02-04 13:04 | Outpatient (REF) | payer OTHER, SELFPAY ==
[2024-02-11 23:29] LABS: HPV mRNA E6/E7 Not Detected (Not Detected)
== END 2024-02-04 13:05 | disposition home or self-care (01) ==
LOC: HO.LNP 13:04
PROVIDERS: Visit Provider Internal Medicine
DX: Z01.419 Encounter for gynecological examination (general) (routine) without abnormal findings (principal)
CPT/HCPCS: 87624; 88142

== ENCOUNTER 2024-02-04 13:08 | Outpatient (REF) | payer OTHER, SELFPAY ==
--- NOTE | ~2024-02-04 | XR_ITS ---
EXAMINATION: XR HAND, BILATERAL CLINICAL INFORMATION: Pain in unspecified joint. COMPARISON: None available. TECHNIQUE: 3 views of each hand. FINDINGS: Left Hand: Moderate degenerative changes with hypertrophic change and narrowing in IP joints most notable in the third DIP joint. Moderate degenerative changes in the first carpometacarpal joint with joint space narrowing and hypertrophic change. Right Hand: Mild degenerative changes with hypertrophic change and narrowing in IP joints most notable in the second and third DIP joints. Mild degenerative changes in the first carpometacarpal joint with joint space narrowing and hypertrophic change. XR/XR hand LT min 3V IMPRESSION: 1. Moderate degenerative changes in the left hand. 2. Mild degenerative changes in the right hand. 3. Recommend follow-up imaging in 10-14 days if fracture is suspected.
--- NOTE | ~2024-02-04 | XR_ITS ---
EXAMINATION: XR HAND, BILATERAL CLINICAL INFORMATION: Pain in unspecified joint. COMPARISON: None available. TECHNIQUE: 3 views of each hand. FINDINGS: Left Hand: Moderate degenerative changes with hypertrophic change and narrowing in IP joints most notable in the third DIP joint. Moderate degenerative changes in the first carpometacarpal joint with joint space narrowing and hypertrophic change. Right Hand: Mild degenerative changes with hypertrophic change and narrowing in IP joints most notable in the second and third DIP joints. Mild degenerative changes in the first carpometacarpal joint with joint space narrowing and hypertrophic change. XR/XR hand RT 2V IMPRESSION: 1. Moderate degenerative changes in the left hand. 2. Mild degenerative changes in the right hand. 3. Recommend follow-up imaging in 10-14 days if fracture is suspected.
== END 2024-02-04 13:09 | disposition home or self-care (01) ==
LOC: HO.HMGCX 13:08
PROVIDERS: PCP Internal Medicine; Visit Provider Internal Medicine
DX: M25.50 Pain in unspecified joint (principal)
CPT/HCPCS: 73120; 73130

== ENCOUNTER 2024-02-11 07:42 | Outpatient (REF) | payer OTHER, SELFPAY ==
[2024-02-11 10:36] LABS: PLT CLUMP 1; SCAN SMEAR FLAG 1
[2024-02-11 10:38] LABS: Alanine Aminotransferase 22 U/L (0-31); Albumin Level 4.7 g/dL (3.5-5.0); Alkaline Phosphatase 59 U/L (39-117); Anion Gap 13 (12-20); Aspartate Amino Transferase 22 U/L (5-31); Bilirubin Total 0.5 mg/dL (0.0-1.0); Blood Urea Nitrogen 20 mg/dL (9-16); C Reactive Protein 0.34 mg/dL (< or = 0.50); Calcium 9.6 mg/dL (8.4-10.2); Carbon Dioxide 26 mmol/L (22-29); Chloride 107 mmol/L (96-108); Cholesterol 173 mg/dL (<200); Estimated Glomerular Filt Rate > 60; Glucose Fasting 116 mg/dL (60-99); HDL Cholesterol 35 mg/dL (>40); LDL Cholesterol Calculated 113 mg/dL (<100); Potassium 4.6 mmol/L (3.3-5.1); Sodium 141 mmol/L (135-145); Total Protein 7.8 g/dL (6.5-8.0); Triglycerides 128 mg/dL (<150)
[2024-02-11 11:23] LABS: Basophils Percent Auto 0.6 % (0-2); Eosinophils Absolute Auto 0.1 X10*3/uL (0.0-0.4); Eosinophils Percent Auto 2.2 % (0-4); Erythrocyte Sedimentation Rate 5 MM/HR (0-20); Hemoglobin 15.3 g/dl (12.0-16.0); Imm Gran Abs Auto 0.01 X10*3/uL (0.00-0.03); Imm Gran Pct Auto 0.2 % (0.0-0.4); Lymphocytes Absolute Auto 1.4 X10*3/uL (1.2-4.9); Lymphocytes Percent Auto 28.4 % (20-40); Mean Corpuscular HGB Conc 33.3 g/dl (31.0-35.0); Mean Corpuscular Hemoglobin 31.7 pg (27.0-33.0); Mean Corpuscular Volume 95.4 fL (80.0-98.0); Mean Platelet Volume 11.6 fL (9.4-12.3); Monocytes Absolute Auto 0.4 X10*3/uL (0.1-1.2); Monocytes Percent Auto 8.8 % (2-11); Neutrophils Absolute Auto 2.9 x10*3/uL (2.0-8.3); Neutrophils Percent Auto 59.8 % (45-73); Platelet Count 191 X10*3/uL (160-400); Red Blood Count 4.82 X10*6/uL (4.20-5.50); Red Cell Distribution Width 12.6 % (11.0-16.0); White Blood Count 4.9 X10*3/uL (4.8-10.8)
[2024-02-11 11:24] LABS: MANUAL DIFF FLAG NO
[2024-02-11 12:26] LABS: Rheumatoid Factor < 13.0 IU/mL (<15.0)
[2024-02-12 14:39] LABS: Cyclic Citrullinated Peptide <16 UNITS
[2024-02-16 12:53] LABS: Anti Nuclear Antibody Screen NEGATIVE (NEGATIVE)
== END 2024-02-11 07:43 | disposition home or self-care (01) ==
LOC: HO.HMGCLDS 07:42
PROVIDERS: PCP Internal Medicine; Visit Provider Internal Medicine
DX: Z00.00 Encounter for general adult medical examination without abnormal findings (principal); M25.50 Pain in unspecified joint; Z87.891 Personal history of nicotine dependence
CPT/HCPCS: 36415; 80053; 80061; 85025; 85652; 86038; 86140; 86200; 86431

== ENCOUNTER 2024-03-02 13:25 | Outpatient (AMB) | payer OTHER, SELFPAY ==
[2024-03-02 13:29] VITALS: BMI 32.7
--- NOTE | 2024-03-02 13:29 | A.OFFVIS_ITS ---
VS Expanded 03/02/24 13:29 03/09/24 10:45 Height 5 ft 4 in 5 ft 4 in Weight 190 lb 7.67 oz 190 lb BMI 32.7 32.6 Intake Visit Reasons: Overweight/ CONFIRMED Allergies morphine [MORPHINE] Allergy (Intermediate, Verified 02/04/24 11:43) HIVES sulfamethoxazole [From BACTRIM] Allergy (Unknown, Verified 02/04/24 11:43) HIVES trimethoprim [From BACTRIM] Allergy (Unknown, Verified 02/04/24 11:43) HIVES bupropion [From Wellbutrin] Adverse Reaction (Intermediate, Verified 02/04/24 12:13) Nausea SEASONAL ALLERGIES Allergy (Mild, Uncoded 02/04/24 11:43) RUNNY NOSE Nutrition Presentation Details: Pt presents for MNT for obesity . Pt was referred by Dr. Solomon Pt reports having a variety of foods in her diet and working on meal planning. B: coffee flavored, banana or slim fast high protein L/d: kielbasa, bread ,water energy bar, zero snapple physical activity: daily life activities BS Monitoring Most Recent Diabetes Results: Cholesterol 173 mg/dL (<200) 02/11/24 HDL Cholesterol 35 mg/dL (>40) L 02/11/24 Triglycerides 128 mg/dL (<150) 02/11/24 Creatinine 0.80 mg/dL (0.5-1.4) 02/11/24 Blood Urea Nitrogen 20 mg/dL (9-16) H 02/11/24 Sodium 141 mmol/L (135-145) 02/11/24 Potassium 4.6 mmol/L (3.3-5.1) 02/11/24 Chloride 107 mmol/L (96-108) 02/11/24 Carbon Dioxide 26 mmol/L (22-29) 02/11/24 Calcium 9.6 mg/dL (8.4-10.2) 02/11/24 AST 22 U/L (5-31) 02/11/24 ALT 22 U/L (0-31) 02/11/24 Total Protein 7.8 g/dL (6.5-8.0) 02/11/24 Albumin 4.7 g/dL (3.5-5.0) 02/11/24 DBZ-Lpbaiyz-Mh.Jeor Equation Height: 5 ft 4 in Weight: 190 lb Resting Metabolic Rate: 1425.68 Calculated Activity Level: Sedentary Calories Needed to Maintain Weight: 1710.82 Diagnosis Nutrition problem #1: food nutri know defi As related to (etiology) #1: diagnosis As evidenced by (sign/symptom) #1: knowledge deficit of diet [facility] Medical History (Updated 03/09/24 @ 10:[address], LDN) Major depressive disorder, recurrent, moderate Overweight Skin growth Foot pain, right Parathyroid disease Insomnia Diverticulosis Surgical History Hx of parathyroidectomy History of colonoscopy History of partial colectomy History of carpal tunnel surgery of left wrist History of right hip replacement Family History Father Bladder cancer Mother Colon cancer Social History Household Members: None Housing: House Patient Tobacco Use Status: Former Tobacco user Tobacco use type: Cigarette Cigarettes Per Day: 10 Years Smoked: 35 e-Cigarette/Vaping Use: Never Used Second Hand Smoke Exposure: No service: No Current occupational status: employed 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 Current occupational exposures/hazards: No Cognitive needs: No Hearing needs: No Vision needs: Yes Assessment & Plan Assessment & Plan (1) Overweight: Comment: Pt in obesity category with BMI today at 32.6 (02/2024) Code(s): E66.3 - Overweight Category: Medical Plan: Wt: 86 Kg ( 02/2024 ) Est kcal needs as per MSJ: 1900 (40% carb, 30% protein/fat) Est fluid needs as per 25-30 ml/d: 2600 Est prot per day as per 1 g/kg bw: 86 Recommend fiber intake : 8-10 g per day and gradually increase to 25-28 g per day for women and 35-38 g for men or as tolerated Recommend sodium intake per day : less than 1500 mg less than 2000 mg Educated patient on: ( R = reviewed V = verbalizes understanding N/R = needs review N/A = not applicable * Food sources of carbohydrate, adequate serving sizes and its role in various health conditions: R V N/R * Differences between complex carbohydrates a simple carbohydrates, role of fiber in diet: R V N/R * Lean protein sources of foods: R V NR * Differences between types of fats and role in diet (mono on saturated fat fatty acids, saturated fatty acids, trans fats): R V N/R * Food sources of sodium in salt and healthy modifications for heart health in kidney health: R V R/V * Vitamins and minerals: R V N/R * Healthy plate method concept: R * Physical activity: Benefits a precaution: R * Hypoglycemia protocol (rule of 15): R V N/R * Dietary prevention of Hyperglycemia: R V R/V Patient Instructions: practice mindful eating work on having 3 scheduled meals per day - ok to have a meal replacement instead of skipping - drink slowly follow healthy plate method at dinner see meal ideas as reference Coding Level of Care Code Nutr Indiv Intake (70208) Diagnoses Overweight E66.3 Time Spent (min) 30
[2024-03-09 10:45] VITALS: BMI 32.6
== END 2024-03-02 14:06 | disposition home or self-care (01) ==
PROVIDERS: PCP Internal Medicine; Visit Provider Dietitian, Registered
DX: E66.3 Overweight (principal)

== ENCOUNTER → 2024-03-02 13:25 | Outpatient (BNVA) | payer OTHER, SELFPAY | PROVIDERS: PCP Internal Medicine; Visit Provider Dietitian, Registered | DX: E66.3 Overweight (principal); Z68.32 Body mass index [BMI] 32.0-32.9, adult; Z71.3 Dietary counseling and surveillance | CPT/HCPCS: 97802 ==

== ENCOUNTER 2024-04-11 12:52 | Outpatient (AMB) | payer OTHER, SELFPAY ==
--- NOTE | 2024-04-11 13:03 | MHC.OFFVIS ---
Intake Visit Reasons: urinary incontinence Intake Note: New Patient presents today for initial visit to establish treatment for : urinary incontinence Urology Medications: none Allergies to Antibiotic: Sulfamethazole and Trimethoprim Blood Thinner: none PVR: 0ml's Volcanologist Required: No Accompanied by: Self / Same As Patient Allergies morphine [MORPHINE] Allergy (Intermediate, Verified 04/11/24 13:40) HIVES sulfamethoxazole [From BACTRIM] Allergy (Unknown, Verified 04/11/24 13:40) HIVES trimethoprim [From BACTRIM] Allergy (Unknown, Verified 04/11/24 13:40) HIVES bupropion [From Wellbutrin] Adverse Reaction (Intermediate, Verified 04/11/24 13:40) Nausea SEASONAL ALLERGIES Allergy (Mild, Uncoded 04/11/24 13:40) RUNNY NOSE Medication List - Last Reconciled 04/11/24 by PRATIK Salmon-ALMA dicyclomine 20 mg PO DIRECTED fluoxetine 60 mg (3 x 20 mg) PO QAM mirabegron ER (Myrbetriq) 25 mg PO DAILY 30 days trazodone 100 mg PO BEDTIME HPI Comments Details: Gabby is a very pleasant 59-year-old female patient of Dr. Solomon. She has a past medical history of depression, parathyroid, insomnia, and diverticulosis. She presents to the office today as a new patient for mixed urinary incontinence. In discussion with the patient today she reports having followed up with her PCP in discussing ongoing lower urinary tract symptoms she had been experiencing at which time she was started on oxybutynin 10 mg daily however did not find this helpful. She reports she has since stopped taking the medication. She does have a history of 3 vaginal births of average size babies. She discusses feeling urinary incontinence with laughing, coughing, sneezing, and or during sexual intercourse. She also reports urinary dribbling after voiding. In office urinalysis results reviewed with the patient today. PVR 0 mL. Discussed at length potential causes of lower urinary tract symptoms patient is experiencing. Discussed obtaining retroperitoneal ultrasound for further assessment evaluation. Pelvic floor exercises/information provided during today's office visit. She otherwise offers no other issues or concerns at this time. FORMERLY [facility] Medical History Major depressive disorder, recurrent, moderate Overweight Skin growth Foot pain, right Parathyroid disease Insomnia Diverticulosis Surgical History Hx of parathyroidectomy History of colonoscopy History of partial colectomy History of carpal tunnel surgery of left wrist History of right hip replacement Family History Father Bladder cancer Mother Colon cancer Social History Household Members: None Housing: House Patient Tobacco Use Status: Former Tobacco user Tobacco use type: Cigarette Cigarettes Per Day: 10 Years Smoked: 35 e-Cigarette/Vaping Use: Never Used Second Hand Smoke Exposure: No service: No Current occupational status: employed 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 Current occupational exposures/hazards: No Cognitive needs: No Hearing needs: No Vision needs: Yes Review of Systems Const All systems reviewed & are unremarkable except as noted in HPI and below Physical Exam Const General: cooperative, healthy appearing, comfortable, no acute distress, well developed, alert and awake Orientation/consciousness: patient oriented x3 Limitations: no limitations HEENT Head: Yes normal to inspection, Yes normocephalic and Yes atraumatic Ears: hearing grossly normal bilaterally Eyes General: appearance normal, both eyes and all related structures Neck Neck: Yes normal visual inspection and Yes trachea midline Chest Chest palpation & inspection: normal inspection of the chest Resp Effort & Inspection: normal respiratory effort and able to speak in complete sentences Cardio Rate: regular rate GI Inspection: Yes normal to inspection General: Yes no CVA tenderness Back/Spine/Pelvis Back: no CVA tenderness Skin General skin exam: no rashes or lesions noted Neuro General: patient oriented x3 Extrem General: Yes normal to inspection Psych Appearance: grossly normal and well kempt Mental Status: mental status grossly normal Speech and movement: Normal speech and movement present and Clear speech present Affect: normal affect Attitude: cooperative Thought process: Normal thought process present Thought content: Normal thought content present Insight: Fair insight present (Psych) Judgement: Fair judgement present (Psych) Office Procedures Post Void Residual Post Residual Void Post Void Residual (PVR): 0 [id number] Void Residual by ultrasound Results AMB Urinalysis, Automated UA Leukoctes 0 Justus/uL Last Edit by Elizabeth Davis on 04/11/24 13:19 UA Nitrite Negative Last Edit by Elizabeth Davis on 04/11/24 13:19 UA Urobilinogen 0.2 mg/dL Last Edit by Elizabeth Davis on 04/11/24 13:19 UA Protein 0 mg/dL Last Edit by Elizabeth Davis on 04/11/24 13:19 UA pH 6.0 Last Edit by Elizabeth Davis on 04/11/24 13:19 UA Blood 0 Spike/uL Last Edit by Elizabeth Davis on 04/11/24 13:19 UA Specific [place] 1.015 Last Edit by Elizabeth Davis on 04/11/24 13:19 UA Ketone Negative Last Edit by Elizabeth Davis on 04/11/24 13:19 UA Bilirubin 0 mg/dL Last Edit by Elizabeth Davis on 04/11/24 13:19 UA Glucose 0 mg/dL Last Edit by Elizabeth Davis on 04/11/24 13:19 Results Reviewed Results Reviewed: Laboratory Last Values Urine pH (Auto) 6.0 04/11/24 13:08 Specific [place] (Auto) 1.015 04/11/24 13:08 Urine Protein (Auto) 0 mg/dL 04/11/24 13:08 Glucose (UA)(Auto) 0 mg/dL 04/11/24 13:08 Urine Ketones (Auto) Negative 04/11/24 13:08 Urine Blood (Auto) 0 Spike/uL 04/11/24 13:08 Urine Nitrite (Auto) Negative 04/11/24 13:08 Urine Bilirubin (Auto) 0 mg/dL 04/11/24 13:08 Urine Urobilinogen (Auto) 0.2 mg/dL 04/11/24 13:08 Leukocyte Esterase (Auto) 0 Justus/uL 04/11/24 13:08 Assessment & Plan Assessment & Plan (1) Urinary incontinence, mixed: Code(s): N39.46 - Mixed incontinence Category: Medical Plan In office urinalysis results reviewed with the patient today; as noted above. PVR 0 mL. Stop oxybutynin. Start Myrbetriq 25 mg daily as discussed and prescribed. Information provided regarding pelvic floor therapy. Will obtain retroperitoneal ultrasound for further assessment evaluation. Discussed bladder triggers/irritants. Discussed possible near future in office cystoscopy and or urodynamics for further assessment evaluation. Follow-up in 1-3 months with imaging to be completed prior; or sooner with any issues, concerns, and or questions. Orders: Orders AMB Urinalysis Automated Today Z13.9 - Encounter for screening, unspecified AMB Post Void Residual by ultrasound Today R32 - Unspecified urinary incontinence US retroperitoneal comp Today N39.46 - Mixed incontinence Medications: New mirabegron ER (Myrbetriq) 25 mg PO DAILY 30 tabs 3RF 30 days N30.10 - Interstitial cystitis (chronic) without hematuria, N32.81 - Overactive bladder, R35.1 - Nocturia, R39.15 - Urgency of urination Patient Instructions: The patient had an opportunity to ask questions regarding the treatment plan. All questions were answered. Physical exam, labs, and imaging were discussed and reviewed in detail. As well as risks, benefits, and discussion of treatment choices. No major barriers to understanding were identified. The patient expressed understanding and agreement with the above treatment plan. The patient was made aware they should contact our office by phone for worsening of their current condition, the appearance of new symptoms, or with any questions or concerns. Compliance is encouraged with any medications and follow up testing that is ordered. It is a privilege to be allowed the opportunity to participate in? your urological care.? Again, if you have any questions or concerns If you have any questions or concerns please do not hesitate to contact me. The office is [phone]. This note is constructed using voice recognition software. While every effort has been made to ensure accuracy underground miner errors may have been included. Yours sincerely, JEANIE Salmon Coding Level of Care Code New Pt Level 4 (15484) Diagnoses Urinary incontinence, mixed N39.46 CPT Codes Post Residual Void - PVR CPT Code: 11332-Snxb Void Residual by ultrasound ([id number])
== END 2024-04-11 13:38 | disposition home or self-care (01) ==
PROVIDERS: PCP Internal Medicine; Visit Provider Nurse Practitioner Family
DX: N39.46 Mixed incontinence (principal); Z13.9 Encounter for screening, unspecified
CPT/HCPCS: 99204

== ENCOUNTER → 2024-04-11 12:52 | Outpatient (BNVA) | payer OTHER, SELFPAY | PROVIDERS: PCP Internal Medicine; Visit Provider Nurse Practitioner Family | DX: N39.46 Mixed incontinence (principal) | CPT/HCPCS: 51798; 81003; 99202 ==

== ENCOUNTER 2024-04-25 14:32 | Outpatient (AMB) | payer OTHER, SELFPAY ==
--- NOTE | 2024-04-25 14:38 | MHC.AMNUTRGE ---
VS Expanded 04/25/24 14:48 Height 5 ft 4 in Weight 186 lb 8.177 oz BMI 32.0 Intake Visit Reasons: OBESITY/CONFIRMED Allergies morphine [MORPHINE] Allergy (Intermediate, Verified 04/11/24 13:40) HIVES sulfamethoxazole [From BACTRIM] Allergy (Unknown, Verified 04/11/24 13:40) HIVES trimethoprim [From BACTRIM] Allergy (Unknown, Verified 04/11/24 13:40) HIVES bupropion [From Wellbutrin] Adverse Reaction (Intermediate, Verified 04/11/24 13:40) Nausea SEASONAL ALLERGIES Allergy (Mild, Uncoded 04/11/24 13:40) RUNNY NOSE Nutrition Presentation Details: Pt presents for MNT f/u for obesity Reports working on diet modfications BS Monitoring Most Recent Diabetes Results: Cholesterol 173 mg/dL (<200) 02/11/24 HDL Cholesterol 35 mg/dL (>40) L 02/11/24 Triglycerides 128 mg/dL (<150) 02/11/24 Creatinine 0.80 mg/dL (0.5-1.4) 02/11/24 Blood Urea Nitrogen 20 mg/dL (9-16) H 02/11/24 Sodium 141 mmol/L (135-145) 02/11/24 Potassium 4.6 mmol/L (3.3-5.1) 02/11/24 Chloride 107 mmol/L (96-108) 02/11/24 Carbon Dioxide 26 mmol/L (22-29) 02/11/24 Calcium 9.6 mg/dL (8.4-10.2) 02/11/24 AST 22 U/L (5-31) 02/11/24 ALT 22 U/L (0-31) 02/11/24 Total Protein 7.8 g/dL (6.5-8.0) 02/11/24 Albumin 4.7 g/dL (3.5-5.0) 02/11/24 ON LICENSE OF [facility] Medical History Major depressive disorder, recurrent, moderate Overweight Skin growth Foot pain, right Parathyroid disease Insomnia Diverticulosis Surgical History Hx of parathyroidectomy History of colonoscopy History of partial colectomy History of carpal tunnel surgery of left wrist History of right hip replacement Family History Father Bladder cancer Mother Colon cancer Social History Household Members: None Housing: House Patient Tobacco Use Status: Former Tobacco user Tobacco use type: Cigarette Cigarettes Per Day: 10 Years Smoked: 35 e-Cigarette/Vaping Use: Never Used Second Hand Smoke Exposure: No service: No Current occupational status: employed 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 Current occupational exposures/hazards: No Cognitive needs: No Hearing needs: No Vision needs: Yes Assessment & Plan Assessment & Plan (1) Overweight: Comment: Pt in obesity category with BMI today at 32.6 (02/2024) Code(s): E66.3 - Overweight Category: Medical Plan: Wt: 86 Kg ( 02/2024 ) , 84.5 kg (05/18) Est kcal needs as per MSJ: 1900 (40% carb, 30% protein/fat) Est fluid needs as per 25-30 ml/d: 2600 Est prot per day as per 1 g/kg bw: 86 Recommend fiber intake : 8-10 g per day and gradually increase to 25-28 g per day for women and 35-38 g for men or as tolerated Recommend sodium intake per day : less than 1500 mg less than 2000 mg Educated patient on: ( R = reviewed V = verbalizes understanding N/R = needs review N/A = not applicable Food sources of carbohydrate, adequate serving sizes and its role in various health conditions: R Differences between complex carbohydrates a simple carbohydrates, role of fiber in diet: R V N/R Lean protein sources of foods: R V NR Differences between types of fats and role in diet (mono on saturated fat fatty acids, saturated fatty acids, trans fats): R V N/R Food sources of sodium in salt and healthy modifications for heart health in kidney health: R V R/V Vitamins and minerals: R V N/R Healthy plate method concept: R Physical activity: Benefits a precaution: R Hypoglycemia protocol (rule of 15): R V N/R Patient Instructions: Continue working on diet modification, include mid afternoon snack with less than 20g protein choose lean protein as snack continue working on mindful eating strategies Coding Level of Care Code Nutr Indiv Subseq (13672) Diagnoses Overweight E66.3 Time Spent (min) 20
[2024-04-25 14:48] VITALS: BMI 32.0
== END 2024-04-25 14:52 | disposition home or self-care (01) ==
PROVIDERS: PCP Internal Medicine; Visit Provider Dietitian, Registered
DX: E66.3 Overweight (principal)

== ENCOUNTER → 2024-04-25 14:32 | Outpatient (BNVA) | payer OTHER, SELFPAY | PROVIDERS: PCP Internal Medicine; Visit Provider Dietitian, Registered | DX: E66.9 Obesity, unspecified (principal); Z68.32 Body mass index [BMI] 32.0-32.9, adult; Z71.3 Dietary counseling and surveillance | CPT/HCPCS: 97803 ==

== ENCOUNTER 2024-04-29 12:49 | Outpatient (REF) | payer OTHER, SELFPAY | END 2024-04-29 12:50 | disposition home or self-care (01) | LOC: HO.MAMMO 12:49 | PROVIDERS: PCP Internal Medicine; Visit Provider Internal Medicine | DX: Z12.31 Encounter for screening mammogram for malignant neoplasm of breast (principal) | CPT/HCPCS: 77063; 77067 ==

== ENCOUNTER → 2024-04-29 13:00 | Outpatient (BNV) | payer OTHER, SELFPAY | PROVIDERS: PCP Internal Medicine; Visit Provider Radiology Diagnostic Radiology | DX: Z12.31 Encounter for screening mammogram for malignant neoplasm of breast (principal) | CPT/HCPCS: 77063; 77067 ==

== ENCOUNTER 2024-09-14 12:43 | Outpatient (AMB) | payer OTHER, SELFPAY ==
--- NOTE | 2024-09-14 12:57 | MHC.OFFWIV ---
Intake Vital Signs 09/14/24 13:03 Height 5 ft 4 in Weight 197 lb BMI 33.8 BP 130/92 H Blood Pressure Location Lt brachial Position Sitting Pulse 78 Pulse Source Pulse Oximeter Temp 98.8 F Temp Source Oral Pulse Oximetry (%) 97 Oxygen Delivery Method Room Air Intake Visit Reasons: EP Cough Intake Note: Patient here for cough that has been present for about 4 days and worsening. Patient Tobacco Use Status: Former Tobacco user Allergies morphine [MORPHINE] Allergy (Intermediate, Verified 09/14/24 13:03) HIVES sulfamethoxazole [From BACTRIM] Allergy (Unknown, Verified 09/14/24 13:03) HIVES trimethoprim [From BACTRIM] Allergy (Unknown, Verified 09/14/24 13:03) HIVES bupropion [From Wellbutrin] Adverse Reaction (Intermediate, Verified 09/14/24 13:03) Nausea SEASONAL ALLERGIES Allergy (Mild, Uncoded 09/14/24 13:03) RUNNY NOSE Do you need a note to return to daycare/school/sports/work: No HPI EP Cough HPI Details This note is constructed using voice recognition software. While every effort has been made to ensure accuracy, hotel reservation agent errors may have been included. The patient is a 59 year old female who presents to the clinic today with cough. She reports that last week she had what she feels to be the flu as she was testing negative for COVID, where she had fever, chills, diarrhea, cough. The cough has persisted, and she reports that she gets a cough like this typically every year. She does report that she has got a history of allergies, she uses sinus rinse, and has been taking Delsym DM for symptom management. She denies shortness of breath, fever, chills currently. She reports her cough to be a dry tickling cough. FORMERLY [facility], [facility] Medical History Major depressive disorder, recurrent, moderate Overweight Skin growth Foot pain, right Parathyroid disease Insomnia Diverticulosis Surgical History Hx of parathyroidectomy History of colonoscopy History of partial colectomy History of carpal tunnel surgery of left wrist History of right hip replacement Family History Father Bladder cancer Mother Colon cancer Social History Household Members: None Housing: House Patient Tobacco Use Status: Former Tobacco user Tobacco use type: Cigarette Cigarettes Per Day: 10 Years Smoked: 35 e-Cigarette/Vaping Use: Never Used Second Hand Smoke Exposure: No service: No Current occupational status: employed 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 Current occupational exposures/hazards: No Cognitive needs: No Hearing needs: No Vision needs: Yes Review of Systems Const All systems reviewed & are unremarkable except as noted in HPI and below Physical Exam Vital Signs: Last Vital Signs Temp 98.8 F 09/14/24 13:03 Pulse 78 09/14/24 13:03 BP 130/92 H 09/14/24 13:03 Pulse Ox 97 09/14/24 13:03 Oxygen Delivery Method Room Air 09/14/24 13:03 BMI result Body Mass Index 33.8 Const General: cooperative, healthy appearing, comfortable and no acute distress Orientation/consciousness: patient oriented x3 Limitations: no limitations HEENT Head: Yes normal to inspection Ears: hearing grossly normal bilaterally, external ears normal and TM abnormal retracted General nose exam: Normal external nose present, No nasal discharge present and Abnormal mucous membranes and turbinates present boggy and pale Face and sinus: Yes normal facial exam and Yes sinuses nontender Mouth: Normal oral and palatal mucosa present and moist mucous membranes Throat: Yes tonsils normal, Yes uvula midline, Yes posterior oropharynx abnormal (Erythema), Yes postnasal drainage and Yes cobblestoning Eyes General: appearance normal, both eyes and all related structures Neck Neck: Yes normal visual inspection Resp Effort & Inspection: normal respiratory effort, able to speak in complete sentences, Actively coughing, no respiratory distress, not tachypneic, no tripod positioning and no use of accessory muscles Auscultation: clear to auscultation bilaterally Cardio Rate: regular rate Rhythm: regular rhythm Heart sounds: normal S1 and S2 Skin General skin exam: no rashes or lesions noted Neuro General: patient oriented x3 Extrem General: Yes normal to inspection and Yes no clubbing, cyanosis or edema Assessment & Plan Assessment & Plan (1) Allergic rhinitis: Code(s): J30.9 - Allergic rhinitis, unspecified Qualifiers: Allergic rhinitis trigger: unspecified Allergic rhinitis seasonality: unspecified Qualified Code(s): J30.9 - Allergic rhinitis, unspecified Plan: Supportive measures encouraged and reviewed. Advised patient to try a Flonase nasal spray and second-generation antihistamine such as Zyrtec, Claritin, Riya or similar. Advised consideration of sinus rinse if needed. Discussed how allergies coupled with post viral syndrome, likely contributing to her cough. Benzonatate sent for symptomatic management of cough. Advised patient to follow up with primary care provider with worsening or failure to resolve. Plan See above for full details and plan. Medications: New benzonatate 100 mg PO TID 5 days PRN 15 caps 0RF Cough Coding Level of Care Code Est Pt Level 3 (14333) Diagnoses Allergic rhinitis, unspecified seasonality, unspecified trigger J30.9 Allergic rhinitis trigger: unspecified Allergic rhinitis seasonality: unspecified
[2024-09-14 13:03] VITALS: BP 130/92; PULSE 78; TEMP 37.1; O2SAT 97; BMI 33.8
== END 2024-09-14 14:12 | disposition home or self-care (01) ==
PROVIDERS: PCP Internal Medicine; Visit Provider Registered Nurse
DX: J30.9 Allergic rhinitis, unspecified (principal)

== ENCOUNTER → 2024-09-14 12:43 | Outpatient (BNVA) | payer OTHER, SELFPAY | PROVIDERS: PCP Internal Medicine; Visit Provider Registered Nurse | DX: J30.9 Allergic rhinitis, unspecified (principal) | CPT/HCPCS: 99212 ==

== ENCOUNTER 2024-09-30 09:57 | Outpatient (AMB) | payer OTHER, SELFPAY ==
[2024-09-30 09:58] VITALS: BP 118/70; PULSE 77; O2SAT 95; BMI 33.3
--- NOTE | 2024-09-30 09:58 | A.OFFPC_ITS ---
Vital Signs 09/30/24 09:58 Height 5 ft 4 in Weight 194 lb BMI 33.3 BP 118/70 Blood Pressure Location Lt brachial Position Sitting Pulse 77 Pulse Source Pulse Oximeter Pulse Oximetry (%) 95 Oxygen Delivery Method Room Air Intake Visit Reasons: Trigger finger Intake Note: Pt is here today for a sikc visit. Pt c/o pain and locking in her trigger fingers. Pt also states that she has been having neck pain. Allergies morphine [MORPHINE] Allergy (Intermediate, Verified 09/30/24 10:07) HIVES sulfamethoxazole [From BACTRIM] Allergy (Unknown, Verified 09/30/24 10:07) HIVES trimethoprim [From BACTRIM] Allergy (Unknown, Verified 09/30/24 10:07) HIVES bupropion [From Wellbutrin] Adverse Reaction (Intermediate, Verified 09/30/24 10:07) Nausea SEASONAL ALLERGIES Allergy (Mild, Uncoded 09/30/24 10:07) RUNNY NOSE Medication List - Last Reconciled 09/30/24 by Consuelo Solomon MD dicyclomine 20 mg PO DIRECTED fluoxetine 60 mg (3 x 20 mg) PO QAM trazodone 100 mg PO BEDTIME Tobacco use date assessed: 09/30/24 Dental Screening Dental Screen Date: 02/04/24 HPI Trigger finger HPI Details Patient presents complaining of bilateral middle finger MCP joints painful and locking when patient using her hands a lot, crocheting. She denies joint swelling. Chronic anxiety and depression are stable on current medications. Patient complains of chronic neck pain and stiffness worse when trying to turn her head to the side for a few months. Patient denies pain radiating to extremities. [facility] Medical History Major depressive disorder, recurrent, moderate Overweight Skin growth Foot pain, right Parathyroid disease Insomnia Diverticulosis Surgical History Hx of parathyroidectomy History of colonoscopy History of partial colectomy History of carpal tunnel surgery of left wrist History of right hip replacement Family History Father Bladder cancer Mother Colon cancer Social History Household Members: None Housing: House Patient Tobacco Use Status: Former Tobacco user Tobacco use type: Cigarette Cigarettes Per Day: 10 Years Smoked: 35 e-Cigarette/Vaping Use: Never Used Second Hand Smoke Exposure: No service: No Current occupational status: employed 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 1. Little interest or pleasure in doing things: several days 2. Feeling down, depressed, or hopeless: several days 3. Trouble falling or staying asleep, or sleeping too much: not at all 4. Feeling tired or having little energy: several days 5. Poor appetite or overeating: several days 6. Feeling bad about yourself - or that you are a failure or have let yourself or your family down: several days 7. Trouble concentrating on things, such as reading the newspaper or watching television: several days 8. Moving or speaking so slowly that other people could have noticed. Or the opposite - being so fidgety or restless that you have been moving around a lot more than usual: not at all 9. Thoughts that you would be better off or of hurting yourself in some way: not at all Total score: 6 Depression Screening Interpretation: Negative Depression Screening Done: Yes 78289 - PHQ-9 Billing: Yes Source: Developed by Drs. Jorge Kim, Pati Roque, Deng Londono and colleagues, with an educational puja from [employer]. Thrive Questionnaire Date Thrive assessed: 02/04/24 I am a: Patient What is your living situation today?: I have a steady place to live Within the past 12 months, did the food you bought not last and you didn't have the money to get more?: Sometimes True Within the past 12 months, did you worry whether your food would run out before you got money to buy more?: Sometimes True Do you have trouble paying for medicines?: No Do you have trouble getting transportation to medical appointments?: No Do you have trouble paying your heating and electricity bill?: No Do you have trouble taking care of your child, family member or friend?: No Do you have trouble with day-to-day activities such as bathing, preparing meals, shopping, managing finances, etc.?: No Are you currently unemployed and looking for a job?: Yes Are you interested in more education?: No Please select the resources that you would like help with: None Currently or been in a relationship where the following occur: No concerns reported THRIVE Score: 2 AUDIT C Alcohol Use Questionnaire (AUDIT-C) 1. How often do you have a drink containing alcohol?: 2-4 times a month 2. How many drinks containing alcohol do you have on a typical day when you are drinking?: 1 or 2 3. How often do you have six or more drinks on one occasion?: Never Total Score: 2 ERYN-7 AMB Questionnaire ERYN-7 Date ERYN - 7 assessed: 09/30/24 Feeling nervous, anxious, or on edge: 1 = Several days Not being able to stop or control worryin = Not at all Worrying too much about different things: 0 = Not at all Trouble relaxin = Several days Being so restless that it is hard to sit still: 0 = Not at all Becoming easily annoyed or irritable: 1 = Several days Feeling afraid as if something awful might happen: 0 = Not at all Total ERYN-7 score (0-4 normal; 5-9 mild; 10-14 moderate; 15-21 severe): 3 Source: Developed by Drs. Jorge Kim, Pati Roque, Deng Londono and colleagues, with an educational puja from [employer]. Review of Systems Const All systems reviewed & are unremarkable except as noted in HPI and below ENT Reports no additional complaints Card Reports no additional complaints Resp Reports no additional complaints GI Reports no additional complaints Reports no additional complaints Physical exam (Primary Care) Vital Signs: Last Vital Signs Pulse 77 09/30/24 09:58 BP 118/70 09/30/24 09:58 Pulse Ox 95 09/30/24 09:58 Oxygen Delivery Method Room Air 09/30/24 09:58 BMI result Body Mass Index 33.3 Tobacco/Smoking Status: Tobacco use Status Tobacco use date assessed 09/30/24 09/30/24 10:08 Patient Tobacco Use Status Former Tobacco user 09/30/24 09:58 Tobacco use type Cigarette 09/30/24 09:58 e-Cigarette/Vaping Use Never Used 09/30/24 09:58 PHQ-9: PHQ-9 Score PHQ-9: Total score 6 09/30/24 10:23 Depression Screening Interpretation: Negative Thrive Assessment: Date of Thrive Assessment Date Thrive assessed 02/04/24 09/30/24 09:58 Currently or been in a relationship where the following occur: No concerns reported Const General: no acute distress HENMT Head: Yes normal to inspection Throat: Yes posterior oropharynx normal Eyes General: appearance normal, both eyes and all related structures Neck Other: Paraspinal tenderness and muscle spasm in lower cervical region bilaterally Neck: Yes supple Resp Effort & Inspection: normal respiratory effort Auscultation: clear to auscultation bilaterally Cardio Rhythm: regular rhythm Heart sounds: S1 normal heart sound present and S2 normal heart sound present Coding Level of Care Code Est Pt Level 4 (61901) Diagnoses Neck pain on right side M54.2 Major depressive disorder, recurrent, moderate F33.1 Arthralgia M25.50 Additional Codes PHQ-9 - 91220 - PHQ-9 Billing: Yes ([id number]) Assessment & Plan Assessment & Plan (1) Neck pain on right side: Code(s): M54.2 - Cervicalgia Category: Medical Plan: Referred to physical therapy (2) Major depressive disorder, recurrent, moderate: Code(s): F33.1 - Major depressive disorder, recurrent, moderate Category: Medical Plan: Continue current medications follow-up with the Psychiatry (3) Arthralgia: Comment: hand x-rays consistent with moderate osteoarthritis Code(s): M25.50 - Pain in unspecified joint Category: Medical Plan: Supportive care discussed with the patient Orders: Orders PT Evaluation and Treatment Today M54.2 - Cervicalgia Vitamin D 25-OH Total 5 Months F33.1 - Major depressive disorder, recurrent, moderate, M25.50 - Pain in unspecified joint, Z00.00 - Encounter for general adult medical examination without abnormal findings Comprehensive [place]. Panel Fast 5 Months F33.1 - Major depressive disorder, recurrent, moderate, M25.50 - Pain in unspecified joint, Z00.00 - Encounter for general adult medical examination without abnormal findings Complete Blood Count Auto Diff 5 Months F33.1 - Major depressive disorder, recurrent, moderate, M25.50 - Pain in unspecified joint, Z00.00 - Encounter for general adult medical examination without abnormal findings Lipid Panel 5 Months F33.1 - Major depressive disorder, recurrent, moderate, M25.50 - Pain in unspecified joint, Z00.00 - Encounter for general adult medical examination without abnormal findings TSH reflex Free T4 5 Months F33.1 - Major depressive disorder, recurrent, moderate, M25.50 - Pain in unspecified joint, Z00.00 - Encounter for general adult medical examination without abnormal findings
--- OUTSIDE RECORDS SUMMARY | 2024-10-05 07:14 | XMS_ITS | Patient Health Record ---
Author Organization [facility] Address [address] [place] [address] Care Team Providers Care Tool Grinding Technician Name Role Phone Consuelo Solomon MD Primary Care Provider Shade Arias Jr Unavailable ALLERGIES Allergen (clinical drug ingredient) Drug/Non Drug Allergy documented on EMR Reaction Allergy Type Onset Date Status Sulfa Unknown Drug Allergy Active morphine Morphine Sulfate Unknown Drug Allergy Active REASON FOR REFERRAL No Information MEDICATIONS Medication SIG (Take, Route, Fr equency, Duration) Notes Start Date End Date Status FLUoxetine HCl 20 MG 2 tablet in the mor rober Orally Once a day Active Multivitamin Adult - 1 tablet Orally Onc e a day for 30 day(s) Active Dicyclomine HCl 20 MG 1 tablet Orally 2- 4 times a day for 30 days 11/05/2020 Active Ondansetron HCl 4 MG 1 tablet Orally up to 3 times daily as needed for nausea 04/11/2022 Activ e lamoTRIgine 100 MG 1 tablet Oral Once a day Active IMMUNIZATIONS Vaccine Route Administration Date Status Comme nts Influenza Unknown 07/26/2020 Administered Influenza Unknown 06/26/2022 Administered SOCIAL HISTORY Tobacco Use: Social History Observation Description Date Details (start date - stop date) Former Smoker NA - NA Sex Assigned At : Social History Observation Description Sex Assigned At Unknown Tobacco Use/Smoking Question Answer Notes Patient is a former smoker How long has it been since you last smoked? 3-6 months PROBLEMS Problem Type ICD Code Onset Dates Problem Status W/U Status Risk SNOMED Code Notes Problem Diverticulitis of large intestine without perforation or abscess without bleeding (K57.32) Active confirmed 7096578 Problem Diverticulitis of intestine, part unspecified, without perforation or abscess without bleeding (K57.92) Active confirmed Diverticul itis of colon (988121610) Problem Diverticulitis (K57.92) Active confirmed 552896190 Problem Gastroesophageal reflux disease (K21.9) Active confirmed Gastroesophagea l reflux disease (072105418) Problem Fatty liver (K76.0) Active confirmed [address] scan, colon (R93.3) Active confirmed 674451430 Problem RUQ pain (R10.11) Active confirmed 3017 06435 Problem Gastroesophageal reflux disease, unspecified whether esophagitis present (K21.9) Active confirmed 893612065 Problem Diaphragmatic hernia without obstruction and without gangrene (K44.9) Active confirmed 23762698 PLAN OF TREATMENT Pending Test Test Name Order Date LIVER PROFILE 11/16/2020 LIPASE 09/04/2022 LIPASE 11/16/2020 CRP 09/04/2022 CBC w DIFF 09/04/2022 CBC w/o DIFF 11/16/2020 SED RATE (ESR) 09/04/2022 STOOL WBC 06/26/2022 STOOL WBC 11/16/2020 OVA & PARASITES (O&P) 06/26/2022 OVA & PARASITES (O&P) 11/16/2020 CULTURE, STOOL 11/16/2020 XR BARIUM SWALLOW-ESOPHAGUS 10/10/2022 C DIFFICILE RFLX PCR 11/16/2020 Liver Panel 09/04/2022 CDiff Gene PCR 06/26/2022 Future Test Test Name Order Date COLONOSCOPY 07/07/2013 COLONOSCOPY 07/15/2017 COLONOSCOPY 02/21/2021 UPPER GI ENDOSCOPY 10/10/2022 Insurance Providers Payer Name Payer Address Payer Phone Subscriber Number Group Number Insured Name Patient Relationship to Insured Coverage Start Date Coverage End Date [facility] [address] [address] [place], [place] [id number] SCHMITT Self - patient is the insured MEDICAL (GENERAL) HISTORY Medical History History ICD Code Diverticulitis, last colonos copy 05/15, scattered diverticulosis, and normal sigmoid biopsies, patent anastomosis, followup 10 years Anxiety/depression elevated body mass index Right diaphragmatic hernia Primary hyperparathyroidism Surgical History Surgery Date(Month/Year) Sigmoid resection for diverticular disea 2008 hip replacement right 05/2019
--- OUTSIDE RECORDS SUMMARY | 2024-10-05 07:14 | XMS_ITS ---
Author Organization [facility] Address [address] [place] [address] Care Team Providers Care Medical Office Receptionist Name Role Phone Consuelo Solomon MD Primary Care Provider UnavailShade Jerez Jr REASON FOR VISIT barium swallow Encounters Encounter Location Date Provider Diagnosis [facility] [address] [place] [address] 05/14/2023 Shade Elder Jr PLAN OF TREATMENT No Information
== END 2024-09-30 10:59 | disposition home or self-care (01) ==
PROVIDERS: PCP Internal Medicine; Visit Provider Internal Medicine
DX: M54.2 Cervicalgia (principal); F33.1 Major depressive disorder, recurrent, moderate; M25.50 Pain in unspecified joint

== ENCOUNTER → 2024-09-30 09:57 | Outpatient (BNVA) | payer OTHER, SELFPAY | PROVIDERS: PCP Internal Medicine; Visit Provider Internal Medicine | DX: M54.2 Cervicalgia (principal); F33.1 Major depressive disorder, recurrent, moderate; M25.50 Pain in unspecified joint | CPT/HCPCS: 96127; 99212 ==

== ENCOUNTER 2025-02-05 14:27 | Emergency (ER) | payer OTHER, SELFPAY ==
--- NOTE | ~2025-02-05 | CT_ITS ---
CLINICAL HISTORY: pain CT cervical spine without contrast Comparison: None Findings: Cervical vertebral body heights maintained. No traumatic listhesis, subluxation, or dislocation demonstrated. No acute fracture identified. Moderate diffuse degenerative change. No acute prevertebral or paraspinous soft tissue finding. Visualized portions of the lung apices are clear. IMPRESSION: 1. No CT evidence of acute traumatic cervical spine injury. Moderate diffuse degenerative changes worst at C5-C6. This document has been electronically signed by: Jorden Sahu MD on 02/05/2025 19:50:29
--- NOTE | 2025-02-05 14:37 | ED.GENADULT ---
HPI - General Adult General Chief complaint: Neck Pain/Injury Stated complaint: neck pain Time Seen by Provider: 02/05/25 16:41 Source: patient Limitations: no limitations History of Present Illness ED Provider: Verna Germain PA-C HPI narrative: 60-year-old female with a history of anxiety, depression, parathyroid disease, presents with posterior neck pain x2 weeks. Patient states the pain originates posteriorly radiates anteriorly down right lower extremity. Associated paresthesia of her chin. Denies numbness tingling of right upper extremity or weakness. No preceding injury or trauma. Patient states she does perform repetitive activities; use of a computer, typing, texting etc. denies headache or fever. Related Data Home Medications ?Medication ?Instructions ?Recorded ?Confirmed dicyclomine 20 mg tablet 20 mg PO DIRECTED 08/14/22 09/30/24 Previous Rx's ?Medication ?Instructions ?Recorded fluoxetine 20 mg capsule 60 mg (3 x 20 mg) PO QAM #270 caps 07/17/23 trazodone 100 mg tablet 100 mg PO BEDTIME #90 tabs 07/17/23 ketorolac 10 mg tablet 10 mg PO Q6H PRN pain #20 tabs 02/05/25 methocarbamol 750 mg tablet 1,500 mg (2 x 750 mg) PO Q8H PRN 02/05/25 pain, moderate #20 tabs Allergies Allergy/AdvReac Type Severity Reaction Status Date / Time morphine [MORPHINE] Allergy Intermediate HIVES Verified 02/05/25 14:47 sulfamethoxazole Allergy Unknown HIVES Verified 02/05/25 14:47 [From BACTRIM] trimethoprim [From BACTRIM] Allergy Unknown HIVES Verified 02/05/25 14:47 bupropion [From Wellbutrin] AdvReac Intermediate Nausea Verified 02/05/25 14:47 SEASONAL ALLERGIES Allergy Mild RUNNY NOSE Uncoded 09/30/24 10:07 Review of Systems Review of Systems: Yes all other systems are reviewed and are negative Constitutional: Constitutional: Denies fatigue, Denies fever(s) and Denies headache(s) ENT: Denies dizziness, Denies headache(s) and Reports neck pain Cardiovascular: Cardiovascular: Denies chest pain and Denies dyspnea Respiratory: Respiratory: Denies cough and Denies dyspnea Gastrointestinal: Gastrointestinal: Denies abdominal pain, Denies nausea and Denies vomiting Musculoskeletal: Musculoskeletal: Reports neck pain, Reports radiating pain into limb and Reports tingling Neurologic: Denies dizziness, Denies headache(s) and Reports tingling Endocrine: Endocrine: Denies fatigue PMFSH Past Medical History Attestation statement: The following information was validated with the patient. Medical History Major depressive disorder, recurrent, moderate Overweight Skin growth Foot pain, right Parathyroid disease Insomnia Diverticulosis Surgical History Hx of parathyroidectomy History of colonoscopy History of partial colectomy History of carpal tunnel surgery of left wrist History of right hip replacement Family History Family History Father Bladder cancer Mother Colon cancer Social History Social History Household Members: None Housing: House Patient Tobacco Use Status: Former Tobacco user Tobacco use type: Cigarette Cigarettes Per Day: 10 Years Smoked: 35 e-Cigarette/Vaping Use: Never Used Second Hand Smoke Exposure: No Advance Directives: No Advance Directives Information Provided: Yes service: No Current occupational status: employed 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 Current occupational exposures/hazards: No Cognitive needs: No Hearing needs: No Vision needs: Yes Physical Exam ED Vital Signs: Vital Signs - 24 hr 02/05/25 14:45 02/05/25 16:45 02/05/25 18:10 Temperature 98.3 F 97.8 F 98.6 F Pulse Rate 62 54 57 Respiratory Rate 18 16 18 Blood Pressure 138/31 L 112/52 L 122/57 L Pulse Oximetry 98 99 98 Oxygen Delivery Method Room Air Room Air Room Air BMI result Body Mass Index 34.0 Const Other: Alert Orientation/consciousness: patient oriented x3 Neck Other: Limited range of motion of the neck secondary to discomfort, no meningeal signs Resp Effort & Inspection: normal respiratory effort Cardio Other: Normal peripheral perfusion Skin Other: Warm dry no rash Neuro General: patient oriented x3, gait normal, no focal motor deficits and CN's II-XI intact bilaterally Extrem Other: Strength 5/5 bilateral upper extremities with resistance Psych Other: Calm cooperative Course Course Course Narrative: This is a rapid medical exam performed by C. Brielle, RECONSIGNMENT CLERK: Additional HPI, ROS, PE not included below will be deferred to primary provider. 02/05/25 14:44 Patient is a 60-year-old female presenting to the ED from urgent care with complaint of neck pain. Started 3 mos ago, began to radiate to shoulders. Now feels pain in the front of her neck, numbness to chin, difficulty swallowing. Managing secretions in triage, O2 98% on room air. Describes as neck feeling swollen/thick, pain with ROM. Plan: will start with labs and defer imaging to primary provider Medications Administered Discontinued Medications Generic Name Dose Route Start Last Admin Trade Name Freq PRN Reason Stop Dose Admin Ketorolac Tromethamine 15 mg 02/05/25 16:53 02/05/25 17:42 Ketorolac Tromethamine 15 Mg/Ml Vial IM 02/05/25 16:54 15 mg ONCE ONE Administration Methocarbamol 1,500 mg 02/05/25 16:53 02/05/25 17:46 Methocarbamol 750 Mg Tablet PO 02/05/25 16:54 1,500 mg ONCE ONE Administration Medical Decision Making Medical Decision Making MDM Narrative: 60-year-old female with a history of anxiety, depression, parathyroid disease, presents with posterior neck pain x2 weeks. Patient states the pain originates posteriorly radiates anteriorly down right lower extremity. Associated paresthesia of her chin. Denies numbness tingling of right upper extremity or weakness. No preceding injury or trauma. Patient states she does perform repetitive activities; use of a computer, typing, texting etc. denies headache or fever. No relevant chronic issues History: Per patient I have considered the following differential diagnoses: Arthritis, cervical strain, cervical radiculopathy, compression fracture, VAD, meningitis Plan: Patient was having cervical radicular symptoms, likely secondary to her repetitive activities. We will obtain imaging of the neck. Giving Toradol and methocarbamol. Doubtful to be a compression fracture given there was no acute trauma. This is not VAD, there was no preceding heavy lifting injury, she is also neurologically intact without headache or visual changes. This is not meningitis, she has no meningeal signs on exam, she is also afebrile and has not been recently ill. I have independently reviewed the following tests: Labs: No leukocytosis, not anemic, no electrolyte abnormality noted CT cervical spine:IMPRESSION: 1. No CT evidence of acute traumatic cervical spine injury. Moderate diffuse degenerative changes worst at C5-C6. Lab Data 02/05/25 15:15 02/05/25 15:15 Labs: Lab Results 02/05/25 Range/Units 15:15 WBC 5.5 (4.8-10.8) X10*3/uL RBC 4.51 (4.20-5.50) X10*6/uL Hgb 14.2 (12.0-16.0) g/dl Hct 43.1 (37.0-47.0) % MCV 95.6 (80.0-98.0) fL MCH 31.5 (27.0-33.0) pg MCHC 32.9 (31.0-35.0) g/dl RDW 12.9 (11.0-16.0) % Plt Count 182 (160-400) X10*3/uL MPV 11.8 (9.4-12.3) fL Immature Gran % (Auto) 0.2 (0.0-0.4) % Neut % (Auto) 62.0 (45-73) % Lymph % (Auto) 26.4 (20-40) % Saunders % (Auto) 9.4 (2-11) % Eos % (Auto) 1.3 (0-4) % Baso % (Auto) 0.7 (0-2) % Lymph # (Auto) 1.5 (1.2-4.9) X10*3/uL Saunders # (Auto) 0.5 (0.1-1.2) X10*3/uL Eos # (Auto) 0.1 (0.0-0.4) X10*3/uL Baso # (Auto) 0.0 (0.0-0.2) X10*3/uL Abs Immat Gran (auto) 0.01 (0.00-0.03) X10*3/uL Absolute Neuts (auto) 3.4 (2.0-8.3) x10*3/uL Absolute Nucleated RBC 0.000 (0.0-0.012) X10*3/uL Nucleated RBC % (auto) 0.0 (0.0-0.2) /100WBC Smear Tech's Comments VERIFIED Sodium 142 (135-145) mmol/L Potassium 4.5 (3.3-5.1) mmol/L Chloride 107 (96-108) mmol/L Carbon Dioxide 26 (22-29) mmol/L Anion Gap 14 (12-20) BUN 15 (9-16) mg/dL Creatinine 0.72 (0.5-1.4) mg/dL Estim Creat Clear Calc 90.2 Estimated GFR > 60 Random Glucose 95 (60-115) mg/dL Calcium 9.1 (8.4-10.2) mg/dL Total Bilirubin 0.3 (0.0-1.0) mg/dL AST 29 (5-31) U/L ALT 23 (0-31) U/L Alkaline Phosphatase 70 (39-117) U/L Total Protein 7.3 (6.5-8.0) g/dL Albumin 4.4 (3.5-5.0) g/dL Discharge Plan Discharge Clinical Impression: Right cervical radiculopathy Patient Disposition: Home, Self-Care Instructions: Cervical Radiculopathy (ED) Additional Instructions: The CT scan of your neck revealed that you have arthritic changes. You are being treated for cervical radiculopathy. See home care instructions. Use the ketorolac as directed, this is the anti-inflammatory, take it with food. Use the methocarbamol, this is a muscle relaxant, as needed for further pain. To note this medication will cause drowsiness do not drive or operate machinery while taking the medication. Call your primary care provider for an appointment, if your symptoms persist, the next step would be physical therapy. Prescriptions: New ketorolac 10 mg tablet 10 mg PO Q6H PRN (Reason: pain) Qty: 20 0RF Rx Instructions: maximum total duration of 5 days from all oral, intranasal, or parenteral formulations. The patient received an intramuscular dose of Toradol here in the emergency department. methocarbamol 750 mg tablet 1,500 mg PO Q8H PRN (Reason: pain, moderate) Qty: 20 0RF No Action dicyclomine 20 mg Tablet 20 mg PO DIRECTED Patient Comments: Last took a week ago. Rx Instructions: Take 2-4 times a day. fluoxetine 20 mg capsule 60 mg PO QAM Qty: 270 3RF trazodone 100 mg tablet 100 mg PO BEDTIME Qty: 90 3RF Stand Alone Forms: Work/School Release Print Language: Albanian
[2025-02-05 14:45] VITALS: BP 138/31; PULSE 62; RESP 18; TEMP 36.8; O2SAT 98; BMI 34.0
--- OUTSIDE RECORDS SUMMARY | 2025-02-05 15:19 | XMS_ITS | Clinical Summary ---
Author Organization [facility] Address [address] [place] [address] Care Team Providers Care It Network Engineer Name Role Phone Yassine Perera MD Primary Care Provider Allergies Active Allergy Reactions Criticality Noted Date Comments Morphine 01/18/2019 Sulfa Antibiotics 01/18/2019 Medications Medication Sig Dispensed Refills Start Date End Date Status buPROPion (WELLBUTRIN XL) 150 MG 24 hr tablet Take 450 mg by mouth daily. 0 10/28/2018 Active FLUoxetine HCl 60 MG TABS Take 1 tablet by mouth daily. 0 10/29/2018 Active Active Problems Problem Noted Date Diagnosed Date Osteoarthritis of one hip, right 01/18/2019 Pain of right hip joint 01/18/2019 Family History Medical History Relation Name Comments Cancer Father Hypertension Father Cancer Mother Hypertension Sister Relation Name Status Comments Father Mother Sister Social History Tobacco Use Types Packs/Day Years Used Date Smoking Tobacco: Never Assessed Sex and Gender Information Value Date Recorded Sex Assigned at Not on file Gender Identity Not on file Sexual Orientation Not on file Last Filed Vital Signs Vital Sign Reading Time Taken Comments Blood Pressure - - Pulse - - Temperature - - Respiratory Rate - - Oxygen Saturation - - Inhaled Oxygen Concentration - - Weight 80.7 kg (178 lb) 01/18/2019 2:44 PM EDT Height 162.6 cm (5' 4 ) 01/18/2019 2:44 PM EDT Body Mass Index 30.55 01/18/2019 2:44 PM EDT Plan of Treatment Health Maintenance Due Date Last Done Comments Hepatitis C Screening 1965 COVID-19 Vaccine (#1) 1965 Depression Screening 1977 Preventative Health Evaluation 1983 DTap / Tdap / Td (1 - Tdap) 01/25/1984 Cervical Cancer Screening (P ap Smear) 1986 Colon Cancer Screening (Colonoscopy) 2010 Breast Cancer Screening (Mammogram) 2015 Shingrix-Zoster Vaccine (1 of 2) 2015 Influenza Vaccine (#1) 2024 RSV Adult > 60+ Yrs or Pregn ant (1 - 1-dose 75+ series) 01/25/2040 Hepatitis B Vaccines Aged Out No long er eligible based on patient's age to complete this topic Pneumococcal Vaccine Aged Out No long er eligible based on patient's age to complete this topic RSV Ped < 20 months Aged Out No longe r eligible based on patient's age to complete this topic Insurance Payer Benefit Plan / Group Subscriber ID Effective Dates Phone Address Type [facility] [id number] 12/25-[facility] [address] [place] [address] [facility] [id number] 2018-Pre sent [address] [place] [address] Care Teams It Network Engineer Relationship Specialty Start Date End Date Yassine Perera MD [address] [place] [address] PCP - General Internal Medicine 11/19/18
[2025-02-05 15:22] LABS: Basophils Percent Auto 0.7 % (0-2); Eosinophils Absolute Auto 0.1 X10*3/uL (0.0-0.4); Eosinophils Percent Auto 1.3 % (0-4); Hematocrit 43.1 % (37.0-47.0); Hemoglobin 14.2 g/dl (12.0-16.0); Imm Gran Abs Auto 0.01 X10*3/uL (0.00-0.03); Imm Gran Pct Auto 0.2 % (0.0-0.4); Lymphocytes Absolute Auto 1.5 X10*3/uL (1.2-4.9); Lymphocytes Percent Auto 26.4 % (20-40); MANUAL DIFF FLAG SCAN; Mean Corpuscular HGB Conc 32.9 g/dl (31.0-35.0); Mean Corpuscular Hemoglobin 31.5 pg (27.0-33.0); Mean Corpuscular Volume 95.6 fL (80.0-98.0); Mean Platelet Volume 11.8 fL (9.4-12.3); Monocytes Absolute Auto 0.5 X10*3/uL (0.1-1.2); Monocytes Percent Auto 9.4 % (2-11); Neutrophils Absolute Auto 3.4 x10*3/uL (2.0-8.3); PLT CLUMP 1; Red Blood Count 4.51 X10*6/uL (4.20-5.50); Red Cell Distribution Width 12.9 % (11.0-16.0); SCAN SMEAR FLAG 1
[2025-02-05 15:48] LABS: Platelet Count 182 X10*3/uL (160-400); White Blood Count 5.5 X10*3/uL (4.8-10.8)
[2025-02-05 15:49] LABS: SLIDE REVIEW VERIFIED
[2025-02-05 16:12] LABS: Alanine Aminotransferase 23 U/L (0-31); Albumin Level 4.4 g/dL (3.5-5.0); Alkaline Phosphatase 70 U/L (39-117); Anion Gap 14 (12-20); Aspartate Amino Transferase 29 U/L (5-31); Bilirubin Total 0.3 mg/dL (0.0-1.0); Blood Urea Nitrogen 15 mg/dL (9-16); Calcium 9.1 mg/dL (8.4-10.2); Carbon Dioxide 26 mmol/L (22-29); Chloride 107 mmol/L (96-108); Creatinine Clr Calc Pharmacy 90.2; Estimated Glomerular Filt Rate > 60; Glucose Random 95 mg/dL (60-115); Potassium 4.5 mmol/L (3.3-5.1); Sodium 142 mmol/L (135-145); Total Protein 7.3 g/dL (6.5-8.0)
[2025-02-05 16:45] VITALS: BP 112/52; PULSE 54; RESP 16; TEMP 36.6; O2SAT 99
[2025-02-05] MEDS: Ketorolac Tromethamine 15 MG/ML VIAL IM (17:42)
[2025-02-05] MEDS: methocarbamoL 750 MG TABLET 1500 MG PO (17:46)
[2025-02-05 18:10] VITALS: BP 122/57; PULSE 57; RESP 18; TEMP 37; O2SAT 98
[2025-02-05 20:08] VITALS: BP 122/57; PULSE 57; RESP 18; TEMP 37; O2SAT 98
== END 2025-02-05 20:09 | disposition home or self-care (01) ==
PROVIDERS: Registered Nurse Emergency; Emergency Provider Emergency Medicine; PCP Internal Medicine
DX: M54.12 Radiculopathy, cervical region (principal); M54.2 Cervicalgia; R20.2 Paresthesia of skin
CPT/HCPCS: 36415; 72125; 80053; 85025; 96372; 99283; 99284; J1885

== ENCOUNTER → 2025-02-05 16:42 | Outpatient (BNV) | payer OTHER, SELFPAY | PROVIDERS: Emergency Provider Emergency Medicine; PCP Internal Medicine; Visit Provider Radiology Diagnostic Radiology | DX: M50.30 Other cervical disc degeneration, unspecified cervical region (principal) | CPT/HCPCS: 72125 ==

== ENCOUNTER 2025-03-15 10:54 | Outpatient (AMB) | payer OTHER, SELFPAY ==
--- NOTE | 2025-03-15 10:55 | MHC.OFFWIV ---
Intake Vital Signs 03/15/25 10:56 Weight 196 lb BP 130/80 Blood Pressure Location Rt brachial Position Sitting Pulse 67 Pulse Source Pulse Oximeter Pulse Oximetry (%) 98 Oxygen Delivery Method Room Air Intake Visit Reasons: EP Neck pain/headache Intake Note: Patient here for neck pain and headaches that started a couple of days ago. Patient Tobacco Use Status: Former Tobacco user Allergies morphine [MORPHINE] Allergy (Intermediate, Verified 03/15/25 10:57) HIVES sulfamethoxazole [From BACTRIM] Allergy (Unknown, Verified 03/15/25 10:57) HIVES trimethoprim [From BACTRIM] Allergy (Unknown, Verified 03/15/25 10:57) HIVES bupropion [From Wellbutrin] Adverse Reaction (Intermediate, Verified 03/15/25 10:57) Nausea SEASONAL ALLERGIES Allergy (Mild, Uncoded 03/15/25 10:57) RUNNY NOSE Do you need a note to return to daycare/school/sports/work: No HPI EP Neck pain/headache HPI Details This is a 60-year-old female patient who presents to the walk-in clinic today with ongoing neck pain and headaches. She was seen in the emergency room on 02/[address] of the cervical spine showed Moderate diffuse degenerative changes worst at C5-C6 however no acute processes. She states that she has chronic right-sided neck pain at the base of her head, which radiates down the right side of her neck. Denies any radiation or weakness down her arm. Denies any sensation of electrical shock. States that this neck pain induces daily headaches which come up the back of her neck and ?sit ?on the top of her head. She states that she does a lot of sitting/typing at her new job, which likely is exacerbating symptoms. Denies any dizziness, vision changes. She was prescribed Toradol and muscle relaxers upon discharge from the emergency department. She states that these were somewhat helpful, however pain is ongoing and she is unsure what to do. [facility] Medical History Major depressive disorder, recurrent, moderate Overweight Skin growth Foot pain, right Parathyroid disease Insomnia Diverticulosis Surgical History Hx of parathyroidectomy History of colonoscopy History of partial colectomy History of carpal tunnel surgery of left wrist History of right hip replacement Family History Father Bladder cancer Mother Colon cancer Social History Household Members: None Housing: House Patient Tobacco Use Status: Former Tobacco user Tobacco use type: Cigarette Cigarettes Per Day: 10 Years Smoked: 35 e-Cigarette/Vaping Use: Never Used Second Hand Smoke Exposure: No service: No Current occupational status: employed 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 Current occupational exposures/hazards: No Cognitive needs: No Hearing needs: No Vision needs: Yes Review of Systems Const All systems reviewed & are unremarkable except as noted in HPI and below Physical Exam Const Other: uncomfortable appearing General: cooperative Limitations: no limitations HEENT Head: Yes normal to inspection, Yes normocephalic and Yes atraumatic Ears: hearing grossly normal bilaterally General nose exam: Normal external nose present Face and sinus: Yes normal facial exam Neck Neck: Yes normal visual inspection, Yes no lymphadenopathy, Yes no meningeal signs and Yes no JVD Resp Effort & Inspection: normal respiratory effort Auscultation: clear to auscultation bilaterally Cardio Rate: regular rate Rhythm: regular rhythm Back/Spine/Pelvis Other: Cervical spine with limited range of motion in all directions. Negative Spurling's. No radiation of pain down arm. Significant tenderness to palpation over right sternocleidomastoid, right trapezius, right cervical paraspinal muscles. Skin General skin exam: no rashes or lesions noted Neuro General: no meningeal signs Extrem General: Yes capillary refill normal and Yes no clubbing, cyanosis or edema Psych Appearance: grossly normal Mental Status: mental status grossly normal Speech and movement: Normal speech and movement present Assessment & Plan Assessment & Plan (1) Sternocleidomastoid muscle tenderness: Code(s): M79.12 - Myalgia of auxiliary muscles, head and neck Plan: Patient may benefit from course of physical therapy to address cervical paraspinal and sternocleidomastoid tightness/tenderness as well as OA of the cervical spine. She may be a good candidate for interventional/injection therapy through the pain management office at [facility]. I will consult with her PCP Dr. Solomon regarding this. At this time, I will prescribe her a short course of meloxicam, and also cyclobenzaprine. We reviewed indications, use, possible side effects of these medications. I discussed with patient importance of gentle stretching for these muscles, and frequent breaks from sitting/typing while she is at work. She is aware that I will discuss referral for pain management office with her PCP. In the meantime, she can return to the clinic as needed or the emergency department if symptoms become severe. She verbalizes understanding and agrees to plan. (2) Osteoarthritis of cervical spine: Code(s): M47.812 - Spondylosis without myelopathy or radiculopathy, cervical region Qualifiers: Spinal osteoarthritis complication: without myelopathy or radiculopathy Qualified Code(s): M47.812 - Spondylosis without myelopathy or radiculopathy, cervical region Plan: As above. Medications: New cyclobenzaprine Take 1 tablet by mouth at bedtime as needed for neck pain/spasms. 10 mg PO BEDTIME 10 days PRN 10 tabs 0RF muscle spasm M79.12 - Myalgia of auxiliary muscles, head and neck meloxicam 15 mg PO DAILY 7 days 7 tabs 0RF M47.812 - Spondylosis without myelopathy or radiculopathy, cervical region, M79.12 - Myalgia of auxiliary muscles, head and neck Coding Level of Care Code Est Pt Level 4 (16258) Diagnoses Sternocleidomastoid muscle tenderness M79.12 Spondylosis of cervical region without myelopathy or radiculopathy M47.812 Spinal osteoarthritis complication: without myelopathy or radiculopathy
[2025-03-15 10:56] VITALS: BP 130/80; PULSE 67; O2SAT 98
--- OUTSIDE RECORDS SUMMARY | 2025-03-15 12:21 | XMS_ITS | Clinical Summary ---
Author Organization [facility] Address [address] [place] [address] Care Team Providers Care Electric Tripper Machine Operator Name Role Phone Yassine Perera MD Primary [...] Subscriber ID Effective Dates Phone Address Type [facility] [id number] 12/25-Pre sent [address] [place] [address] [facility] [id number] 2018-Pre sent [address] [place] [address] Care Teams Electric Tripper Machine Operator Relationship Specialty Start Date End Date Yassine Perera MD [address] [place] [address] PCP - General Internal Medicine 11/19/18
--- OUTSIDE RECORDS SUMMARY | 2025-03-15 12:21 | XMS_ITS | Patient Health Record ---
Author Organization [facility] Address [address] [place] [address] Care Team Providers Care Meal Attendant Name Role Phone Consuelo Solomon MD Primary Care Provider Shade Arias Jr Unavailable [phone] Allergies Allergen (clinical drug ingredient) Drug/Non Drug Allergy documented on EMR Reaction Allergy Type Onset Date Status Sulfa Unknown Drug Allergy Active morphine Morphine Sulfate Unknown Drug Allergy Active Reason For Referral No Information Medications Medication SIG (Take, Route, Fr equency, Duration) [...] 1 tablet Oral Once a day Active Immunizations Vaccine Route Administration Date Status Comme nts Influenza Unknown 07/26/2020 Administered Influenza Unknown 06/26/2022 Administered Social History Tobacco Use: Social History Observation Description Date Details (start date - stop date) Former Smoker NA - NA Tobacco Use/Smoking Question Answer Notes Patient is a former smoker How long has it been since you last smoked? 3-6 months Problems Problem Type SNOMED Code ICD Code Onset Dates Problem Status W/U Status Risk Notes Problem 5037675 Diverticulitis o f large intestine without perforation or abscess without bleeding (K57.32) Active confirmed Problem Diverticulitis of colon (214601461) Diverticulitis of intestine, part unspecified, without perforation or abscess without bleeding (K57.92) Active confirmed Problem 371546988 Diverticulitis (K57.92) Active confirmed Problem Gastroesophageal reflux disease (K21.9) Active confirmed Problem 054781009 Fatty liver (K76.0) Active confirmed Problem 449326293 Abnormal CT scan , colon (R93.3) Active confirmed Problem 651026302 RUQ pain (R10.11) Active confirmed Problem 772765182 Gastroesophageal reflux disease, unspecified whether esophagitis present (K21.9) Active confirmed Problem 93430569 Diaphragmatic hernia without obstruction and without gangrene (K44.9) Active confirmed Plan Of Treatment Pending Test Test Name Order Date LIVER PROFILE 11/16/2020 LIPASE 09/04/2022 LIPASE 11/16/2020 CRP 09/04/2022 CBC w DIFF 09/04/2022 CBC w/o DIFF 11/16/2020 SED RATE (ESR) 09/04/2022 STOOL WBC 11/16/2020 STOOL WBC 06/26/2022 OVA & PARASITES (O&P) 06/26/2022 OVA & [...] Insured Coverage Start Date Coverage End Date [facility] [address] [address] [place], [place] [id number] LOLA SCHMITT Self - patient is the insured Medical (General) History Medical History History ICD Code Diverticulitis, last colonos copy 05/15, scattered diverticulosis, and normal sigmoid biopsies, patent anastomosis, followup 10 years Anxiety/depression elevated body mass index Right diaphragmatic hernia Primary hyperparathyroidism Surgical History Surgery Date(Month/Year) Sigmoid resection for diverticular disea se 2008 hip replacement right 05/2019
== END 2025-03-15 11:45 | disposition home or self-care (01) ==
PROVIDERS: PCP Internal Medicine; Visit Provider Nurse Practitioner Family
DX: M79.12 Myalgia of auxiliary muscles, head and neck (principal); M47.812 Spondylosis without myelopathy or radiculopathy, cervical region

== ENCOUNTER → 2025-03-15 10:54 | Outpatient (BNVA) | payer OTHER, SELFPAY | PROVIDERS: PCP Internal Medicine | DX: M79.12 Myalgia of auxiliary muscles, head and neck (principal); M47.812 Spondylosis without myelopathy or radiculopathy, cervical region | CPT/HCPCS: 99212 ==

== ENCOUNTER 2025-05-17 08:50 | Outpatient (REF) | payer OTHER, SELFPAY ==
--- NOTE | ~2025-05-17 | MM_ITS ---
EXAMINATION: MM SCREENING DIGITAL BREAST TOMOSYNTHESIS, BILATERAL CLINICAL INFORMATION: Screening. Asymptomatic. COMPARISON: Comparison made to multiple prior, most recent April 29, 2024, and most remote November 23, 2019. TECHNIQUE: Digital breast tomosynthesis is performed in both the craniocaudal and mediolateral oblique views along with computer-aided detection (CAD). Synthesized 2D images are generated from the tomosynthesis. FINDINGS: BREAST COMPOSITION: There are scattered areas of fibroglandular density (ACR BI-RADS breast composition Category b). BILATERAL BREASTS: No significant masses, suspicious calcifications or other abnormalities are seen in either breast. MM/MM tomosynthesis screening BI IMPRESSION: BILATERAL BREASTS: Negative, no mammographic evidence of malignancy. Normal interval follow-up is recommended in 12 months. ASSESSMENT: BI-RADS 1 - Negative RECOMMENDATION: Routine annual mammography screening. FOLLOW-UP: 1 year F/U This examination should not preclude the clinical evaluation of a suspicious palpable abnormality. This patient's information was entered into a reminder system with a target due date for their next mammogram. Electronically signed by: Nadia Silverio MD 05/23/2025 05:41 PM EDT
--- OUTSIDE RECORDS SUMMARY | 2025-05-17 09:14 | XMS_ITS | Clinical Summary ---
Author Organization [facility] Address [address] [place] [address] Care Team Providers Care Flight Test Data Acquisition Technician Name Role Phone Yassine Perera MD Primary [...] (1 of 2) 2015 Influenza Vaccine (#1) 2025 RSV Adult > 60+ Yrs or Pregn [...] Subscriber ID Effective Dates Phone Address Type [facility] [id number] 12/25-Pre [address] [place] [address] [facility] [id number] 2018-Pre sent [address] [place] [address] Care Teams Flight Test Data Acquisition Technician Relationship Specialty Start Date End Date Yassine Perera MD [address] [place] [address] PCP - General Internal Medicine 11/19/18
--- OUTSIDE RECORDS SUMMARY | 2025-05-17 09:14 | XMS_ITS | Patient Health Record ---
Author Organization [facility] Address [address] [place] [address] Care Team Providers Care Lumber Handler Name Role Phone Consuelo Solomon MD Primary Care Provider Shade Arias Jr Unavailable [phone] Allergies Allergen (clinical drug ingredient) Drug/Non [...] Problem Status W/U Status Risk Notes Problem 7245951 Diverticulitis o f large intestine without perforation or abscess without bleeding (K57.32) Active confirmed Problem Diverticulitis of colon (801739674) Diverticulitis of intestine, part unspecified, without perforation or abscess without bleeding (K57.92) Active confirmed Problem 422135133 Diverticulitis (K57.92) Active confirmed Problem Gastroesophageal reflux disease (328836232) Gastroesophageal reflux disease (K21.9) Active confirmed Problem 997025373 Fatty liver (K76.0) Active confirmed Problem 606070406 Abnormal CT scan , colon (R93.3) Active confirmed Problem 352111689 RUQ pain (R10.11) Active confirmed Problem 391795286 Gastroesophageal reflux disease, unspecified whether esophagitis present (K21.9) Active confirmed Problem 74622928 Diaphragmatic hernia without obstruction and without gangrene [...] Insured Coverage Start Date Coverage End Date [facility] [address] [address] [place], [place] [id number] LOLA SCHMITT Self - patient is the [...]
== END 2025-05-17 08:51 | disposition home or self-care (01) ==
LOC: HO.MAMMO 08:50
PROVIDERS: Visit Provider Internal Medicine
DX: Z12.31 Encounter for screening mammogram for malignant neoplasm of breast (principal)
CPT/HCPCS: 77063; 77067

== ENCOUNTER → 2025-05-17 09:00 | Outpatient (BNV) | payer OTHER, SELFPAY | PROVIDERS: Visit Provider Radiology Body Imaging | DX: Z12.31 Encounter for screening mammogram for malignant neoplasm of breast (principal) | CPT/HCPCS: 77063; 77067 ==

== ENCOUNTER 2025-09-05 12:38 | Emergency (ER) | payer OTHER, SELFPAY ==
[2025-09-05 12:46] VITALS: BP 128/60; PULSE 72; RESP 20; TEMP 36.4; O2SAT 97; BMI 34.5
--- NOTE | 2025-09-05 12:48 | ED_ITS ---
HPI - General Adult General Chief complaint: Abdominal Pain Stated complaint: Blood In Stool Related Data Previous Rx's ?Medication ?Instructions ?Recorded fluoxetine 20 mg capsule 60 mg (3 x 20 mg) PO QAM #27 0 caps 07/17/23 trazodone 100 mg tablet 100 mg PO BEDTIME #90 tabs 0 07/17/23 cyclobenzaprine 10 mg tablet 10 mg PO BEDTIME PRN musc le spasm 03/15/25 10 days #10 tabs meloxicam 15 mg tablet 15 mg PO DAILY 7 days #7 tab s 03/15/25 Allergies Allergy/AdvReac Type Severity Reaction Status Date / Time morphine (MORPHINE) Allergy Intermediate HIVES Verified 09/05/25 12:50 sulfamethoxazole (From Allergy Unknown HIVES Verified 09/05/25 12:50 BACTRIM) trimethoprim (From BACTRIM) Allergy Unknown HIVES Verified 09/05/25 12:50 bupropion (From Wellbutrin) AdvReac Intermediate Nausea Verified 09/05/25 12:50 SEASONAL ALLERGIES Allergy Mild RUNNY NOSE Uncoded 03/15/25 10:57 PMFSH Past Medical History Medical History Major depressive disorder, recurrent, moderate Overweight Skin growth Foot pain, right Parathyroid disease Insomnia Diverticulosis Surgical History Hx of parathyroidectomy History of colonoscopy History of partial colectomy History of carpal tunnel surgery of left wrist History of right hip replacement Family History Family History Father Bladder cancer Mother Colon cancer Social History Social History Household Members: None Housing: House Patient Tobacco Use Status: Former Tobacco user Tobacco use type: Cigarette Cigarettes Per Day: 10 Years Smoked: 35 e-Cigarette/Vaping Use: Never Used Second Hand Smoke Exposure: No Advance Directives: No Advance Directives Information Provided: No Do you have a plan to hurt others: No Plan service: No Current occupational status: employed 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 Patient is a 60y/o F presenting with complaint of LLQ abdominal pain and hematochezia since 1am. States she brought a stool sample with her. Associated nausea and lower back pain. Plan: labs, UA Patient left the emergency department before myself or any of the other clinicians could review or explain physical exam findings, test results, need or lack there of for additional testing, treatment options, or a treatment plan. Discharge Plan Discharge Clinical Impression: Abdominal pain Patient Disposition: Left W/O Completing Treatment Prescriptions: No Action fluoxetine 20 mg capsule 60 mg PO QAM Qty: 270 3RF trazodone 100 mg tablet 100 mg PO BEDTIME Qty: 90 3RF meloxicam 15 mg tablet 15 mg PO DAILY 7 Days Qty: 7 0RF cyclobenzaprine 10 mg tablet 10 mg PO BEDTIME PRN (Reason: muscle spasm) 10 Days Qty: 10 0RF Rx Instructions: Take 1 tablet by mouth at bedtime as needed for neck pain/spasms. Discharge Date/Time: 09/05/25 13:50
--- OUTSIDE RECORDS SUMMARY | 2025-09-05 15:20 | XMS_ITS | Patient Health Record ---
Author Organization [facility] Address [address] [place] [address] Care Team Providers Care Metal Work Duct Installer Name Role Phone Consuelo Solomon MD Primary Care Provider Shade Arias Jr Unavailable Allergies Allergen (clinical drug ingredient) Drug/Non Drug [...] - 1 tablet Orally Onc e a day; Duration: 30 day(s) Active Dicyclomine HCl 20 MG 1 tablet Orally 2- 4 times a day; Duration: 30 days 11/05/2020 Active Ondansetron HCl 4 [...] Problem Status W/U Status Risk Notes Problem Diverticulitis of colon (703820141) Diverticulitis of large intestine without perforation or abscess without bleeding (K57.32) Active confirmed Problem Diverticulitis of colon (547334463) Diverticulitis of intestine, part unspecified, without perforation or abscess without bleeding (K57.92) Active confirmed Problem Diverticulitis (40591481) Diverticulitis (K57.92) Active confirmed Problem Gastroesophageal reflux disease (545853492) Gastroesophageal reflux disease (K21.9) Active confirmed Problem Fatty liver (291082921) Fatty liver (K76.0) Active confirmed Problem Computed tomography result abnormal (033291965) Abnormal CT scan, colon (R93.3) Active confirmed Problem Right upper quadrant pain (267714658) RUQ pain (R10.11) Active confirmed Problem Gastroesophageal reflux disease (891063621) Gastroesophageal reflux disease, unspecified whether esophagitis present (K21.9) Active confirmed Problem Diaphragmatic hernia (68978233) Diaphragmatic hernia without obstruction and without gangrene (K44.9) Active confirmed Encounters Encounter Location Date Provider Diagnosis [facility] [address] [place] [address] 09/05/2025 Shade Elder Jr Plan Of Treatment Pending Test Test Name [...] Insured Coverage Start Date Coverage End Date [facility] [address] [address] [place], [place] [id number] OSKAR, LOLA Self - patient is the insured Medical (General) History Medical History History ICD Code Diverticulitis, last colonos copy 05/15, scattered diverticulosis, and normal sigmoid biopsies, patent anastomosis, followup 10 years Anxiety/depression elevated body mass index Right diaphragmatic hernia Primary hyperparathyroidism Surgical History Surgery Date(Month/Year) Sigmoid resection for diverticular disea 2008 hip replacement right 05/2019
== END 2025-09-05 13:50 | disposition left against medical advice (07) ==
PROVIDERS: Emergency Provider Emergency Medicine
DX: R10.32 Left lower quadrant pain (principal); M54.50 Low back pain, unspecified; Z53.29 Procedure and treatment not carried out because of patient's decision for other reasons; Z87.19 Personal history of other diseases of the digestive system; Z87.891 Personal history of nicotine dependence
CPT/HCPCS: 99281